=== PATIENT | male | born 1985 | race Caucasian/White ===

== ENCOUNTER 2018-12-23 19:08 | Inpatient (IN) | payer BC ==
[~2018-12-23] VITALS: Ht 177.8 cm; Wt 73.4 kg
[2018-12-23] MEDS ORDERED: SOD CHLORIDE 0.9% 1,000 ML IV STA ×2 (19:32→21:41)
[2018-12-23] MEDS ORDERED: LORAZEPAM 2 MG INJ IV STA (19:32)
[2018-12-23] MEDS ORDERED: LEVETIRACETAM 1000 MG (PMX) 100 ML IVPB STA (19:32)
[2018-12-23] MEDS ORDERED: ONDANSETRON 4 MG INJ IV STA (19:36)
[2018-12-23] MEDS ORDERED: PROCHLORPERAZINE 10 MG INJ IV ONE (20:30)
[2018-12-23] MEDS ORDERED: LORAZEPAM 2 MG INJ IV ONE (21:00)
--- NOTE | 2018-12-23 21:54 | ERD ---
ER Documentation Chief Complaint Chief Complaint bib ra 102 for seizure, witnessed, +postictal, no head trauma HPI This is a 33-year-old male with a known history of seizure disorders. It is unknown the medication that he takes as the patient was unable to provide any history due to his recent seizure. A friend accompany him to the hospital. She stated that she is a very good friend of the patient as is her daughter. She stated that her daughter was talking to the patient on the phone while he was at work. He stated he was feeling tired and dizzy and asked if she could come to pick him up. He felt as though he was going to have a seizure as he states this is his aura prior to seizing. When they were on the phone the patient started talking and she assumed the patient was having a seizure and phoned 911. When EMS got there the friend had arrived and the patient was having a witnessed tonic-clonic seizure. They were able to establish IV access. They stated the seizure had subsequently stopped without any medication but the patient appeared very agitated and confused. EMS stated there is no signs of trauma or drug paraphernalia. The patient's Accu-Chek was within normal limits. Medication history is not available. ROS All systems reviewed and are negative except as per history of present illness. Allergies Allergies: Coded Allergies: Unknown: Unable to obtain (Unverified , 12/23/18) PMhx/Soc History of Surgery: No Anesthesia Reaction: No Hx Neurological Disorder: Yes (SEIZURES) Hx Respiratory Disorders: No Hx Cardiac Disorders: No Hx Psychiatric Problems: No Hx Miscellaneous Medical Probl: No Hx Alcohol Use: No Hx Substance Use: No Hx Tobacco Use: No Smoking Status: Never smoker Physical Exam Vitals Vital Signs Date Temp Pulse Resp B/P (MAP) Pulse Ox O2 O2 Flow FiO2 Time Delivery Rate 12/23/18 98.5 104 19 135/87 100 Room Air 21:37 (103) 12/23/18 98.5 100 19 107/70 100 Room Air 20:40 (82) 12/23/18 98.5 99 19 162/94 100 Room Air 19:47 (116) 12/23/18 98.5 120 19 162/94 100 19:12 (116) Physical Exam Constitutional:Well-developed. Well-nourished. Patient had an episode of nonbloody nonbilious emesis covered in vomit. . Very agitated. Combative. HEENT:Normocephalic. Atraumatic with no nasal septal hematoma. No hemotympanum..Pupils were equal round reactive to light. Moist mucous membranes.No tonsillar exudates. Neck: No nuchal rigidity. No lymphadenopathy. No posterior cervical spine tenderness or step-offs. Respiratory: Not using accessory muscles of respiration.Lungs were clear to auscultation bilaterally. No rhonchi. No rales. No wheezing. Cardiovascular: Regular rate regular rhythm.No murmurs. No rubs were appreciated.S1, S2 normal. Distal pulses are palpable 2+ bilaterally. GI: Abdomen was soft. Nontender. Non Distended. No pulsatile abdominal masses or bruits. No rebound. No guarding. Bowel sounds were present and normal. Muscle skeletal: Full range of motion of both the upper and lower extremities bilaterally.Normal muscle tone.No assymetrical calf tenderness or swelling. Skin: No petechia, no purpura. No lesions on the palms or the soles of the feet. No maculopapular rash. NEURO: Patient was alert mumbling incomprehensible sounds. Patient appeared confused. Was attempting to get out of the gurney. Gait unobserved. Result Diagram: 12/23/18193112/23/181931 Results 24 hrs Laboratory Tests Test 12/23/18 19:32 12/23/18 20:08 12/23/18 21:20 White Blood Count 16.5 10^3/ul Red Blood Count 5.38 10^6/ul Hemoglobin 16.5 g/dl Hematocrit 51.5 % Mean Corpuscular Volume 95.7 fl Mean Corpuscular Hemoglobin 30.7 pg Mean Corpuscular 32.0 g/dl Hemoglobin Concent Red Cell Distribution Width 11.8 % Platelet Count 249 10^3/UL Mean Platelet Volume 10.6 fl Immature Granulocytes % 1.500 % Neutrophils % % Segmented Neutrophils 41 % % (Manual) Band Neutrophils % (Manual) 5 % Lymphocytes % % Lymphocytes % (Manual) 47 % Monocytes % % Monocytes % (Manual) 1 % Eosinophils % % Basophils % % Basophils % (Manual) 2 % Metamyelocytes % (manual) 2 % Myelocytes % (Manual) 1 % Promyelocytes % (Manual) 1 % Nucleated Red Blood Cells % 1 % Immature Granulocytes # 0.250 10^3/ul Neutrophils # 10^3/ul Neutrophils # (Manual) 6.9 10^3/ul Band Neutrophils # 0.8 10^3/ul Lymphocytes (Manual) 7.7 10^3/ul Lymphocytes # 10^3/ul Monocytes # 10^3/ul Monocytes # (Manual) 0.1 10^3/ul Eosinophils # 10^3/ul Basophils # 10^3/ul Basophils # (Manual) 0.3 10^3/ul Metamyelocytes # 0.3 10^3/ul Myelocytes # 0.1 10^3/ul Promyelocytes # 0.1 10^3/ul Nucleated Red Blood Cells # 10^3/ul Platelet Estimate NORMAL Giant Platelets 1 % Polychromasia 3+ Poikilocytosis 2+ Anisocytosis 2+ Microcytosis 2+ Prothrombin Time 14.0 Sec Prothrombin Time Ratio 1.1 INR International 1.07 Normalized Ratio Activated 23.0 Sec Partial Thromboplast Time Sodium Level 146 mmol/L Potassium Level 4.4 mmol/L Chloride Level 102 mmol/L Carbon Dioxide Level 6 mmol/L Anion Gap 38 Blood Urea Nitrogen 16 mg/dl Creatinine 1.70 mg/dl Est Glomerular Filtrat 46 mL/min Rate mL/min Glucose Level 146 mg/dl Calcium Level 10.6 mg/dl Total Bilirubin 0.3 mg/dl Direct Bilirubin 0.00 mg/dl Indirect Bilirubin 0.3 mg/dl Aspartate Amino 43 IU/L Transf (AST/SGOT) Alanine 12 IU/L Aminotransferase (ALT/SGPT) Alkaline Phosphatase 64 IU/L Troponin I < 0.012 ng/ml Total Protein 9.4 g/dl Albumin 5.8 g/dl Globulin 3.60 g/dl Albumin/Globulin Ratio 1.61 Ethyl Alcohol Level < 10.0 mg/dl Blood Gas Specimen Source Blood arterial Arterial Blood Date Drawn 12/23/2018 8:20:48 PM Arterial Blood pH 7.243 (Temp corrected) Arterial Blood pCO2 41.4 mmhg (Temp correct) Arterial Blood pO2 89.4 mmHG (Temp corrected) Arterial Blood HCO3 17.5 mmol/L Arterial Blood Base Excess -9.4 mmol/L Arterial Blood 94.6 mmHG Oxygen Saturation Saeid Test ACCEPTAB Arterial Blood Gas Right Radial Puncture Site Arterial 0.3 % Blood Carboxyhemoglobin Arterial Blood Methemoglobin 0.4 % Blood Gas A-a O2 Differential 10.8 mmHg Oxyhemoglobin Percent 93.9 % Blood Gas Temperature 37.0 C Blood Gas Actual 18 Respiration Rate Blood Gas Modality ROOM AIR FiO2 21.0 % Blood Gas Critical Value Guanaco ALDRIDGE MD Read Back Blood Gas Notified Whom Blood Gas Notified Time 12/23/2018 8:27:27 PM Urine Opiates Screen Negative Urine Barbiturates Negative Urine Amphetamines Screen Negative Urine Benzodiazepines Screen Negative Urine Cocaine Screen Negative Urine Cannabinoids Negative Current Medications Medications Dose Sig/Loren Start Time Status Last (Trade) Ordered Route PRN Stop Time Admin Dose Reason Admin Sodium 1,000 ml @ Q1H STAT 12/23/18 DC 12/23/18 Chloride 1,000 mls/hr IV 19:32 12/23/18 19:36 20:31 Lorazepam 2 mg ONCE STAT 12/23/18 DC 12/23/18 (Ativan) IV 19:32 12/23/18 19:46 19:34 100 ml @ ONCE STAT 12/23/18 DC 12/23/18 Levetiracetam 400 mls/hr IVPB 19:32 12/23/18 19:54 19:46 Ondansetron 4 mg ONCE STAT 12/23/18 DC HCl (Zofran IV 19:36 12/23/18 Inj) 19:37 10 mg ONCE ONCE 12/23/18 DC 12/23/18 Prochlorperaz IV 20:30 12/23/18 21:12 ine 20:31 (Compazine Inj) Lorazepam 1 mg ONCE ONCE 12/23/18 DC 12/23/18 (Ativan) IV 21:00 12/23/18 21:12 21:01 Sodium 1,000 ml @ Q1H STAT 12/23/18 12/23/18 Chloride 1,000 mls/hr IV 21:41 12/23/18 21:44 22:40 Ondansetron 4 mg ER BRIDGE 12/23/18 HCl (Zofran PRN IV 22:00 12/24/18 Inj) NAUSEA/VOMITI 21:59 NG 650 mg ER BRIDGE 12/23/18 Acetaminophen PRN PO 22:00 12/24/18 (Tylenol .MILD PAIN 21:59 Tab) 1-3 OR TEMP 100 ml @ Q12 IVPB 12/24/18 Levetiracetam 400 mls/hr 09:00 Lorazepam 2 mg Q2H PRN 12/23/18 (Ativan) IV SEIZURES 22:00 [facility] This is a 33-year-old male that presented to the emergency department after having a witnessed tonic seizure just prior to arrival. The patient was admitted placed on a manager urgent care continuous pulse oximetry and seizure precautions were obtained. The patient did have a witnessed tonic-clonic seizure while in the emergency department shortly after his arrival and immediately was given 2 mg of IV Ativan. The patient had also had an episode of nonbloody nonbilious emesis in the emergency department concern for aspiration pneumonia. Therefore obtained a chest radiograph there is no infiltrates or pneumothorax. Blood cultures were obtained. The patient was given antiemetics which include Zofran and Compazine. Ancillary laboratory work showed a severe lowering of the patient's CO2 with a bicarb of 6. The patient however had no evidence of diabetic ketoacidosis. Therefore at this time I obtained an arterial blood gas. The patient's pH was 7.243. PCO2 was 41.4 PO2 was 89.4 and bicarb was 17.5. The patient was on room air at this time and therefore this appeared to be more of a metabolic acidosis versus respiratory acidosis. The patient received IV fluids and was also loaded with 1 g of Keppra intravenously. Patient did have another witnessed tonoclonic seizure in the emergency department that lasted for roughly 1 minute and resolved after receiving another dose of intravenous Ativan. Due to the multiple seizures I did feel is necessary to obtain a CT scan of the patient's head which showed no intr acerebral hemorrhage mass-effect or midline shift. The patient had leukocytosis with a lymphocyte count of 16.5 however I felt this is secondary to an acute stress reaction due to the multiple seizure activity. The patient will be admitted to the hospitalist in serious condition for status epilepticus. I have repeated the patient's ancillary laboratory work to reevaluate the patient's bicarb. Urine drug screen is currently pending. 12 Lead EKG tracing ordered and reviewed by myself showed: Sinus tach 109 bpm and no arrhythmia. NM interval normal. QRS duration normal. No ST segment elevation No ST segment depression. No changes consistent with acute ischemia. Critical Care: Time: 85 minutes Treatments/Evaluations: Close monitoring and treatment of unstable vital signs, cardiorespiratory, and neurologic status, while maintaining tight balance of fluid, respiratory, and cardiac interventions. Time does not include performing any of the above billable procedures. Departure Diagnosis: Primary Impression: Status epilepticus Additional Impression: Metabolic acidosis Condition: Fair KANU ALDRIDGE MD Dec 23, 2018 21:53
[2018-12-23] MEDS ORDERED: SOD CHLORIDE 0.9% 1,000 ML IV SCH (21:59)
[2018-12-23] MEDS ORDERED: DOCUSATE SODIUM 100 MG CAP PO PRN (22:00)
[2018-12-23] MEDS ORDERED: BISACODYL (EC) 5 MG TAB PO PRN (22:00)
[2018-12-23] MEDS ORDERED: LORAZEPAM 2 MG INJ IV PRN (22:00)
[2018-12-23] MEDS ORDERED: ONDANSETRON 4 MG INJ IV PRN ×2 (22:00)
[2018-12-23] MEDS ORDERED: NACL 0.9% 3 ML SYG IV SCH (22:00)
[2018-12-23] MEDS ORDERED: ACETAMINOPHEN 325 MG TAB PO PRN ×2 (22:00)
[2018-12-23] MEDS ORDERED: HALOPERIDOL 5 MG INJ IV ONE (22:30)
[2018-12-24] VITALS (14 sets, daily range): BP systolic 109–137; BP diastolic 65–85; PULSE 60–102; RESP 18–20; Ht 177.8 cm; Wt 73.4 kg
--- NOTE | 2018-12-24 04:08 | HP ---
Date/Time of Note Date/Time of Note DATE: 12/24/18 TIME: 03:55 Assessment/Plan VTE Prophylaxis SCD applied (from Nsg): Yes Pharmacological prophylaxis: NA/contraindicated Pharm contraindication: low risk/ambulating Lines/Catheters IV Catheter Type (from Nrsg): Saline Lock Assessment/Plan Hospital Course This is a 33-year-old male being admitted to the telemetry floor for: #1 acute encephalopathy: Toxic metabolic versus seizure versus other. Patient currently combination of postictal and sedated secondary to receiving Haldol and Ativan for seizures as well as him being agitated. Will monitor mental status closely. CT scan did not show any acute abnormality so it was a limited study. #2 seizure disorder with breakthrough seizures: Unsure at the current time what medications if any the patient was currently on. It appears he was working with a neurologist to adjust his medication regimen. He was given Keppra 1000 mg IV in the ED I will continue this twice daily at the current time. PRN Ativan. Seizure precautions. Will obtain an MRI of the brain to further evaluate. Will consult neurology . Urine drug screen and ethanol levels are negative. Will check TSH. #4 seizure disorder: Patient apparently had failed previous therapy with doses of Keppra 750 mg twice daily, Trileptal, Depakote. Unsure whether these were all at the same time separate. We will need to try to get a better history from the patient once he is better. #5 Metabolic acidosis: Likely secondary to seizure activity. IV fluid hydration, will monitor. #6 Acute kidney injury: We did not have a previous baseline creatinine. Creatinine at the current time is 1.70, prerenal, likely secondary to hemodynamics, mild dehydration, will hydrate the patient. Will monitor renal function. #7. DVT and GI prophylaxis: SCDs, no GI prophylaxis indicated Further treatment strategy will be implemented as per the clinical course. Result Diagram: 12/23/18193112/23/182148 Results 24hrs Laboratory Tests Test 12/23/18 19:32 12/23/18 20:08 12/23/18 21:20 12/23/18 21:49 White Blood Count 16.5 H Red Blood Count 5.38 Hemoglobin 16.5 Hematocrit 51.5 Mean Corpuscular 95.7 Volume Mean Corpuscular 30.7 Hemoglobin Mean Corpuscular 32.0 Hemoglobin Concent Red Cell 11.8 Distribution Width Platelet Count 249 Mean Platelet 10.6 H Volume Immature 1.500 H Granulocytes % Neutrophils % Segmented 41 Neutrophils % (Manual) Band Neutrophils % 5 H (Manual) Lymphocytes % Lymphocytes % 47 (Manual) Monocytes % Monocytes % 1 (Manual) Eosinophils % Basophils % Basophils % 2 (Manual) Metamyelocytes % 2 H (manual) Myelocytes % 1 H (Manual) Promyelocytes % 1 H (Manual) Nucleated Red 1 H Blood Cells % Immature 0.250 H Granulocytes # Neutrophils # Neutrophils # 6.9 (Manual) Band Neutrophils # 0.8 H Lymphocytes 7.7 H (Manual) Lymphocytes # Monocytes # Monocytes # 0.1 L (Manual) Eosinophils # Basophils # Basophils # 0.3 H (Manual) Metamyelocytes # 0.3 H Myelocytes # 0.1 H Promyelocytes # 0.1 H Nucleated Red Blood Cells # Platelet Estimate NORMAL Giant Platelets 1 H Polychromasia 3+ Poikilocytosis 2+ Anisocytosis 2+ Microcytosis 2+ Prothrombin Time 14.0 Prothrombin Time 1.1 Ratio INR International 1.07 Normalized Ratio Activated 23.[address] Time Sodium Level 146 H 143 Potassium Level 4.4 3.7 Chloride Level 102 109 Carbon Dioxide 6 *L 25 # Level Anion Gap 38 H 9 # Blood Urea 16 20 Nitrogen Creatinine 1.70 H 1.27 H Est Glomerular 46 L > 60 Filtrat Rate mL/min Glucose Level 146 121 Calcium Level 10.6 H 9.4 Total Bilirubin 0.3 0.3 Direct Bilirubin 0.00 0.00 Indirect Bilirubin 0.3 0.3 Aspartate Amino 43 35 Transf (AST/SGOT) Alanine 12 L 25 Aminotransferase ( ALT/SGPT) Alkaline 64 47 Phosphatase Troponin I < 0.012 Total Protein 9.4 H 7.4 # Albumin 5.8 H 4.6 # Globulin 3.60 H 2.80 Albumin/Globulin 1.61 1.64 Ratio Ethyl Alcohol < 10.0 H Level Blood Gas Specimen Blood arterial Source Arterial Blood 12/23/2018 8:20:48 Date Drawn PM Arterial Blood pH 7.243 *L (Temp corrected) Arterial Blood 41.4 pCO2 (Temp correct) Arterial Blood pO2 89.4 (Temp corrected) Arterial Blood 17.5 L HCO3 Arterial Blood -9.4 L Base Excess Arterial Blood 94.6 L Oxygen Saturation Saeid Test ACCEPTAB Arterial Blood Gas Right Radial Puncture Site Arterial 0.3 Blood Carboxyhemog lobin Arterial Blood 0.4 Methemoglobin Blood Gas A-a O2 10.8 Differential Oxyhemoglobin 93.9 Percent Blood Gas 37.0 Temperature Blood Gas Actual 18 Respiration Rate Blood Gas Modality ROOM AIR FiO2 21.0 Blood Gas Critical Guanaco ALDRIDGE MD Value Read Back Blood Gas Notified Whom Blood Gas Notified 12/23/2018 8:27:27 Time PM Urine Opiates Negative Screen Urine Barbiturates Negative Urine Amphetamines Negative Screen Urine Negative Benzodiazepines Screen Urine Cocaine Negative Screen Urine Cannabinoids Negative Phenytoin < 3.0 L (Dilantin) Level Valproic Acid < 10 L (Depakene) Level Carbamazepine < 3.0 L (Tegretol) Level HPI/ROS Admit Date/Time Admit Date/Time Dec 23, 2018 at 21:54 Hx of Present Illness Chief complaint: Witnessed seizures Following history was obtained from the ED physician as well as from the RN and the family friends at the bedside as patient was unable to provide history given his postictal state. This is a 33-year-old male with a known history of seizure disorders. 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 While on the phone with a family friend noticed that the patient stopped speaking. She tried to call the patient back however there was no response. She went over to his office and saw him on the floor. She called 911 and the EMS arrived and while the EMS were there they also witnessed a tonic-clonic seizure. He was brought into the emergency room where patient was continued to be having seizure activity. He was loaded with Keppra and given Ativan. Patient also had to be redirected a few times as he was trying to get out of bed and he also was given Haldol. I was able to speak to the family friends at the bedside who did present a paper to me that showed that the patient was following up with a neurologist who had requested an authorization for the patient to received bryviact 50 mg p.o. twice daily as previous medications of Depakote 1 g twice daily, Trileptal 900 mg twice daily, Keppra 750 mg twice daily had not been working. At the current time it is unclear what medications the patient was currently on as he is not able to provide a history. Allergies: None Medications: Unknown ROS Subjective hx not possible: other (Postictal from seizures, as well as sedated from agitation) PMH/Family/Social Past Medical History Seizure disorder Medications Current Medications Ondansetron HCl (Zofran Inj) 4 mg ER BRIDGE PRN IV NAUSEA/VOMITING; Start 12/23/18 at 22:00; Stop 12/24/18 at 21:59 Acetaminophen (Tylenol Tab) 650 mg ER BRIDGE PRN PO .MILD PAIN 1-3 OR TEMP; Start 12/23/18 at 22:00; Stop 12/24/18 at 21:59 Levetiracetam 100 ml @ 400 mls/hr Q12 IVPB ; Start 12/24/18 at 09:00 Lorazepam (Ativan) 2 mg Q2H PRN IV SEIZURES; Start 12/23/18 at 22:00 Sodium Chloride 1,000 ml @ 70 mls/hr [id number] IV ; Start 12/23/18 at 21:59; Stop 12/24/18 at 12:16 IV Flush (NS 3 ml) 3 ml PER PROTOCOL IV ; Start 12/23/18 at 22:00 Ondansetron HCl (Zofran Inj) 4 mg Q6H PRN IV NAUSEA/VOMITING; Start 12/23/18 at 22:00 Acetaminophen (Tylenol Tab) 650 mg Q6H PRN PO .PAIN 1-3 OR TEMP; Start 12/23/18 at 22:00 Docusate Sodium (Colace) 100 mg Q12H PRN PO .CONSTIPATION; Start 12/23/18 at 22:00 Bisacodyl (Dulcolax) 5 mg DAILY PRN PO .CONSTIPATION; Start 12/23/18 at 22:00 Coded Allergies: Unknown: Unable to obtain (Unverified , 12/23/18) Past Surgical History Unable to obtain given patient's clinical condition Social History Unable to obtain given patient's clinical condition Smoking Status: Unknown if ever smoked Exam/Review of Systems Vital Signs Vitals Vital Signs Date Temp Pulse Resp B/P (MAP) Pulse Ox O2 O2 Flow FiO2 Time Delivery Rate 12/24/18 97.4 93 18 126/66 96 00:51 (86) 12/24/18 Room Air 00:29 Exam Exam General: Patient is currently lying in bed sedated and postictal HEENT: Atraumatic, normocephalic. The pupils are equal, round and reactive. Extraocular motor are intact, oral trauma secondary to tongue biting from seizure Neck: Supple with full range of motion. No rigidity or meningismus Chest: Nontender Lungs: Clear to auscultation bilaterally no crackles rales or wheezing Heart: Normal S1-S2, Regular rhythm and rate. No murmur, S3, or S4 Abdomen: Soft , nontender, nondistended , bowel sounds are present. No guarding no rebound tenderness , No masses or organomegaly. No costovertebral temporal angle mass Extremities: Normal to inspection, no edema no cyanosis Neurologic: Currently sedated/postictal Additional Comments PROCEDURE: CT Brain without contrast. CLINICAL INDICATION: 33-year-old male. Combative. Seizure. TECHNIQUE: A CT of the brain was performed on a multi-slice CT scanner utilizing axial imaging from the skull base through the vertex without IV contrast. Multiplanar reformatted images were made. Images were reviewed on a PACS workstation. One or more the following dose reduction techniques were ut ilized: Automated exposure control, adjustment of mA/ or kV according to patient's size, or use of iterative reconstruction technique. DICOM images are available for review. The CTDIvol is 38.76 mGy and the DLP is 893.65 mGycm. COMPARISON: None FINDINGS: Motion degraded images. No gross mass effect or midline shift. Normal ventricles for age. No acute intra-axial or extra-axial hemorrhage. No subdural collection. Nicole - white matter differentiation is maintained. Visualized paranasal sinuses are clear. Mastoid air cells are clear. IMPRESSION: 1. Limited evaluation due to motion artifact. No gross abnormality demonstrated. Repeat CT brain or MR brain recommended as the patient receives appropriate sedation. RPTAT: [facility] Physician Jesús Date Time Electronically viewed and signed by Physician Jesús on 12/23/2018 21:16 RS/ CC: KANU ALDRIDGE MD [id number] PROCEDURE: CT Brain without contrast. CLINICAL INDICATION: 33-year-old male. Combative. Seizure. TECHNIQUE: A CT of the brain was performed on a multi-slice CT scanner utilizing axial imaging from the skull base through the vertex without IV contrast. Multiplanar reformatted images were made. Images were reviewed on a PACS workstation. One or more the following dose reduction techniques were utilized: Automated exposure control, adjustment of mA/ or kV according to patient's size, or use of iterative reconstruction technique. DICOM images are available for review. The CTDIvol is 38.76 mGy and the DLP is 893.65 mGycm. COMPARISON: None FINDINGS: Motion degraded images. No gross mass effect or midline shift. Normal ventricles for age. No acute intra-axial or extra-axial hemorrhage. No subdural collection. Nicole - white matter differentiation is maintained. Visualized paranasal sinuses are clear. Mastoid air cells are clear. IMPRESSION: 1. Limited evaluation due to motion artifact. No gross abnormality demonstrated. Repeat CT brain or MR brain recommended as the patient receives appropriate sedation. RPTAT: [facility] Physician Jesús Date Time Electronically viewed and signed by Physician Jesús on 12/23/2018 21:16 RS/ CC: KANU ALDRIDGE MD [id number] ROXANNA MCKEON Dec 24, 2018 04:06
--- NOTE | 2018-12-24 07:51 | CONS ---
Assessment/Plan Assessment/Plan Hospital Course 33 yo M with Hx of epilepsy who presents for evaluation of breakthrough seizures... for which neurology is consulted. CTH is without acute intracranial pathology. CXR was unremarkable Depakote level is subtherapeutic. P: Clarify AED regimen and medication compliance when able Start Depakote for now, pending the above Ativan IV PRN seizure > 5 min or for cluster Add Phos level Other medical management per primary Will follow clinically Consultation Date/Type/Reason Admit Date/Time Dec 23, 2018 at 21:54 Type of Consult Neurology Reason for Consultation seizure Requesting Provider: ROXANNA MCKEON Date/Time of Note DATE: 12/24/18 TIME: 07:50 Hx of Present Illness The pt is currently unable to contribute a meaningful hx. He was able to tell me that he takes depakote twice a day before going back to sleep. It is elsewhere noted: This is a 33-year-old male with a known history of seizure disorders. 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 While on the phone with a family friend noticed that the patient stopped speaking. She tried to call the patient back however there was no response. She went over to his office and saw him on the floor. She called 911 and the EMS arrived and while the EMS were there they also witnessed a tonic-clonic seizure. He was brought into the emergency room where patient was continued to be having seizure activity. He was loaded with Keppra and given Ativan. Patient also had to be redirected a few times as he was trying to get out of bed and he also was given Haldol. I was able to speak to the family friends at the bedside who did present a paper to me that showed that the patient was following up with a neurologist who had requested an authorization for the patient to received bryviact 50 mg p.o. twice daily as previous medications of Depakote 1 g twice daily, Trileptal 900 mg twice daily, Keppra 750 mg twice daily had not been working. At the current time it is unclear what medications the patient was currently on as he is not able to provide a history. limited d/t ams Exam/Review of Systems Exam Vitals Vital Signs Date Temp Pulse Resp B/P (MAP) Pulse Ox O2 O2 Flow FiO2 Time Delivery Rate 12/24/18 97.7 80 18 137/80 98 07:16 (99) 12/24/18 Room Air 00:29 Intake and Output 12/23/18 12/23/18 12/24/18 1515:00 23:00 07:00 IntakeIntake Total 600 ml BalanceBalance 600 ml Exam PE: Gen Appearance: No Apparent Distress HEENT: Normocephalic Cardiovascular: Regular rate Abdomen: Soft Extremities: Dry NE: The patient was obtunded and sparsely verbal. Opens eyes briefly. Unable to follow commands. Cranial nerve examination was limited by mental status. Pupils were equal and reactive to light. There was no afferent pupillary defect. Funduscopic examination was limited. Face was grossly symmetric, w/ present corneal and c ough reflexes. Tone was normal. Muscle bulk was normal. I did not see fasciculations. The patient withdrew his extremities to noxious stimulation x 4. Coordination and gait testing was limited by mental status. Arm and leg reflexes were within normal limits and symmetric. James's sign was absent. Plantar responses were flexor. Results Result Diagram: 12/24/18 0511 12/24/18 0511 Results 24hrs Laboratory Tests Test 12/23/18 19:32 12/23/18 20:08 12/23/18 21:20 12/23/18 21:49 White Blood Count 16.5 H Red Blood Count 5.38 Hemoglobin 16.5 Hematocrit 51.5 Mean Corpuscular 95.7 Volume Mean Corpuscular 30.7 Hemoglobin Mean Corpuscular 32.0 Hemoglobin Concent Red Cell 11.8 Distribution Width Platelet Count 249 Mean Platelet 10.6 H Volume Immature 1.500 H Granulocytes % Neutrophils % Segmented 41 Neutrophils % (Manual) Band Neutrophils % 5 H (Manual) Lymphocytes % Lymphocytes % 47 (Manual) Monocytes % Monocytes % 1 (Manual) Eosinophils % Basophils % Basophils % 2 (Manual) Metamyelocytes % 2 H (manual) Myelocytes % 1 H (Manual) Promyelocytes % 1 H (Manual) Nucleated Red 1 H Blood Cells % Immature 0.250 H Granulocytes # Neutrophils # Neutrophils # 6.9 (Manual) Band Neutrophils # 0.8 H Lymphocytes 7.7 H (Manual) Lymphocytes # Monocytes # Monocytes # 0.1 L (Manual) Eosinophils # Basophils # Basophils # 0.3 H (Manual) Metamyelocytes # 0.3 H Myelocytes # 0.1 H Promyelocytes # 0.1 H Nucleated Red Blood Cells # Platelet Estimate NORMAL Giant Platelets 1 H Polychromasia 3+ Poikilocytosis 2+ Anisocytosis 2+ Microcytosis 2+ Prothrombin Time 14.0 Prothrombin Time 1.1 Ratio INR International 1.07 Normalized Ratio Activated 23.[address] Time Sodium Level 146 H 143 Potassium Level 4.4 3.7 Chloride Level 102 109 Carbon Dioxide 6 *L 25 # Level Anion Gap 38 H 9 # Blood Urea 16 20 Nitrogen Creatinine 1.70 H 1.27 H Est Glomerular 46 L > 60 Filtrat Rate mL/min Glucose Level 146 121 Calcium Level 10.6 H 9.4 Total Bilirubin 0.3 0.3 Direct Bilirubin 0.00 0.00 Indirect Bilirubin 0.3 0.3 Aspartate Amino 43 35 Transf (AST/SGOT) Alanine 12 L 25 Aminotransferase ( ALT/SGPT) Alkaline 64 47 Phosphatase Troponin I < 0.012 Total Protein 9.4 H 7.4 # Albumin 5.8 H 4.6 # Globulin 3.60 H 2.80 Albumin/Globulin 1.61 1.64 Ratio Ethyl Alcohol < 10.0 H Level Blood Gas Specimen Blood arterial Source Arterial Blood 12/23/2018 8:20:48 Date Drawn PM Arterial Blood pH 7.243 *L (Temp corrected) Arterial Blood 41.4 pCO2 (Temp correct) Arterial Blood pO2 89.4 (Temp corrected) Arterial Blood 17.5 L HCO3 Arterial Blood -9.4 L Base Excess Arterial Blood 94.6 L Oxygen Saturation Saeid Test ACCEPTAB Arterial Blood Gas Right Radial Puncture Site Arterial 0.3 Blood Carboxyhemog lobin Arterial Blood 0.4 Methemoglobin Blood Gas A-a O2 10.8 Differential Oxyhemoglobin 93.9 Percent Blood Gas 37.0 Temperature Blood Gas Actual 18 Respiration Rate Blood Gas Modality ROOM AIR FiO2 21.0 Blood Gas Critical Guanaco ALDRIDGE MD Value Read Back Blood Gas Notified Whom Blood Gas Notified 12/23/2018 8:27:27 Time PM Urine Opiates Negative Screen Urine Barbiturates Negative Urine Amphetamines Negative Screen Urine Negative Benzodiazepines Screen Urine Cocaine Negative Screen Urine Cannabinoids Negative Phenytoin < 3.0 L (Dilantin) Level Valproic Acid < 10 L (Depakene) Level Carbamazepine < 3.0 L (Tegretol) Level Test 12/24/18 05:11 White Blood Count 11.7 #H Red Blood Count 4.40 L Hemoglobin 13.5 L Hematocrit 38.5 #L Mean Corpuscular 87.5 Volume Mean Corpuscular 30.7 Hemoglobin Mean Corpuscular 35.1 Hemoglobin Concent Red Cell 12.0 Distribution Width Platelet Count 140 # Mean Platelet 9.9 Volume Immature 0.300 Granulocytes % Neutrophils % 83.4 H Lymphocytes % 7.5 L Monocytes % 8.5 Eosinophils % 0.0 Basophils % 0.3 Nucleated Red 0.0 Blood Cells % Immature 0.040 H Granulocytes # Neutrophils # 9.8 H Lymphocytes # 0.9 Monocytes # 1.0 H Eosinophils # 0.0 Basophils # 0.0 Nucleated Red 0.0 Blood Cells # Sodium Level 142 Potassium Level 4.3 Chloride Level 108 Carbon Dioxide 25 Level Anion Gap 9 Blood Urea 29 H Nitrogen Creatinine 2.03 H Est Glomerular 38 L Filtrat Rate mL/min Glucose Level 94 Calcium Level 9.1 Magnesium Level 3.0 H Total Bilirubin 0.5 Direct Bilirubin 0.00 Indirect Bilirubin 0.5 Aspartate Amino 45 Transf (AST/SGOT) Alanine 21 Aminotransferase ( ALT/SGPT) Alkaline 35 L Phosphatase Total Protein 6.7 Albumin 4.2 Globulin 2.50 Albumin/Globulin 1.68 Ratio Triglycerides 53 Level Cholesterol Level 176 LDL Cholesterol, 118 Calculated HDL Cholesterol 47 Cholesterol/HDL 3.7 Ratio Thyroid 0.554 Stimulating Hormone (TSH) Medications Medication Current Medications Ondansetron HCl (Zofran Inj) 4 mg ER BRIDGE PRN IV NAUSEA/VOMITING; Start 12/23/18 at 22:00; Stop 12/24/18 at 21:59 Acetaminophen (Tylenol Tab) 650 mg ER BRIDGE PRN PO .MILD PAIN 1-3 OR TEMP; Start 12/23/18 at 22:00; Stop 12/24/18 at 21:59 Levetiracetam 100 ml @ 400 mls/hr Q12 IVPB ; Start 12/24/18 at 09:00 Lorazepam (Ativan) 2 mg Q2H PRN IV SEIZURES; Start 12/23/18 at 22:00 Sodium Chloride 1,000 ml @ 70 mls/hr [id number] IV Last administered on 12/24/18at 05:49; Admin Dose 70 MLS/HR; Start 12/23/18 at 21:59; Stop 12/24/18 at 12:16 IV Flush (NS 3 ml) 3 ml PER PROTOCOL IV ; Start 12/23/18 at 22:00 Ondansetron HCl (Zofran Inj) 4 mg Q6H PRN IV NAUSEA/VOMITING; Start 12/23/18 at 22:00 Acetaminophen (Tylenol Tab) 650 mg Q6H PRN PO .PAIN 1-3 OR TEMP; Start 12/23/18 at 22:00 Docusate Sodium (Colace) 100 mg Q12H PRN PO .CONSTIPATION; Start 12/23/18 at 22:00 Bisacodyl (Dulcolax) 5 mg DAILY PRN PO .CONSTIPATION; Start 12/23/18 at 22:00 Past Medical History reviewed Medications Current Medications Ondansetron HCl (Zofran Inj) 4 mg ER BRIDGE PRN IV NAUSEA/VOMITING; Start 12/23/18 at 22:00; Stop 12/24/18 at 21:59 Acetaminophen (Tylenol Tab) 650 mg ER BRIDGE PRN PO .MILD PAIN 1-3 OR TEMP; Start 12/23/18 at 22:00; Stop 12/24/18 at 21:59 Levetiracetam 100 ml @ 400 mls/hr Q12 IVPB ; Start 12/24/18 at 09:00 Lorazepam (Ativan) 2 mg Q2H PRN IV SEIZURES; Start 12/23/18 at 22:00 Sodium Chloride 1,000 ml @ 70 mls/hr [id number] IV Last administered on 12/24/18at 05:49; Admin Dose 70 MLS/HR; Start 12/23/18 at 21:59; Stop 12/24/18 at 12:16 IV Flush (NS 3 ml) 3 ml PER PROTOCOL IV ; Start 12/23/18 at 22:00 Ondansetron HCl (Zofran Inj) 4 mg Q6H PRN IV NAUSEA/VOMITING; Start 12/23/18 at 22:00 Acetaminophen (Tylenol Tab) 650 mg Q6H PRN PO .PAIN 1-3 OR TEMP; Start 12/23/18 at 22:00 Docusate Sodium (Colace) 100 mg Q12H PRN PO .CONSTIPATION; Start 12/23/18 at 22:00 Bisacodyl (Dulcolax) 5 mg DAILY PRN PO .CONSTIPATION; Start 12/23/18 at 22:00 Allergies: Coded Allergies: Unknown: Unable to obtain (Unverified , 12/23/18) Past Surgical History reviewed Social History reviewed Smoking Status: Unknown if ever smoked ASUNICON KINGSLEY Dec 24, 2018 07:51 PADMINI STODDARD NP Dec 24, 2018 13:11
[2018-12-24] MEDS ORDERED: LEVETIRACETAM 1000 MG (PMX) 100 ML IVPB SCH (09:00)
--- NOTE | 2018-12-24 10:34 | PN ---
Date/Time of Note Date/Time of Note DATE: 12/24/18 TIME: 10:33 Assessment/Plan VTE Prophylaxis Risk score (from [facility])>0 risk: 2 SCD applied (from [facility]): Yes SCD contraindicated: low risk/ambulating Pharmacological prophylaxis: NA/contraindicated Pharm contraindication: low risk/ambulating Lines/Catheters IV Catheter Type (from [facility] Saline Lock Assessment/Plan Result Diagram: 12/24/18 0511 12/24/18 0511 Results 24hrs Laboratory Tests Test 12/23/18 19:32 12/23/18 20:08 12/23/18 21:20 12/23/18 21:49 White Blood Count 16.5 H Red Blood Count 5.38 Hemoglobin 16.5 Hematocrit 51.5 Mean Corpuscular 95.7 Volume Mean Corpuscular 30.7 Hemoglobin Mean Corpuscular 32.0 Hemoglobin Concent Red Cell 11.8 Distribution Width Platelet Count 249 Mean Platelet 10.6 H Volume Immature 1.500 H Granulocytes % Neutrophils % Segmented 41 Neutrophils % (Manual) Band Neutrophils % 5 H (Manual) Lymphocytes % Lymphocytes % 47 (Manual) Monocytes % Monocytes % 1 (Manual) Eosinophils % Basophils % Basophils % 2 (Manual) Metamyelocytes % 2 H (manual) Myelocytes % 1 H (Manual) Promyelocytes % 1 H (Manual) Nucleated Red 1 H Blood Cells % Immature 0.250 H Granulocytes # Neutrophils # Neutrophils # 6.9 (Manual) Band Neutrophils # 0.8 H Lymphocytes 7.7 H (Manual) Lymphocytes # Monocytes # Monocytes # 0.1 L (Manual) Eosinophils # Basophils # Basophils # 0.3 H (Manual) Metamyelocytes # 0.3 H Myelocytes # 0.1 H Promyelocytes # 0.1 H Nucleated Red Blood Cells # Platelet Estimate NORMAL Giant Platelets 1 H Polychromasia 3+ Poikilocytosis 2+ Anisocytosis 2+ Microcytosis 2+ Prothrombin Time 14.0 Prothrombin Time 1.1 Ratio INR International 1.07 Normalized Ratio Activated 23.[address] Time Sodium Level 146 H 143 Potassium Level 4.4 3.7 Chloride Level 102 109 Carbon Dioxide 6 *L 25 # Level Anion Gap 38 H 9 # Blood Urea 16 20 Nitrogen Creatinine 1.70 H 1.27 H Est Glomerular 46 L > 60 Filtrat Rate mL/min Glucose Level 146 121 Calcium Level 10.6 H 9.4 Total Bilirubin 0.3 0.3 Direct Bilirubin 0.00 0.00 Indirect Bilirubin 0.3 0.3 Aspartate Amino 43 35 Transf (AST/SGOT) Alanine 12 L 25 Aminotransferase ( ALT/SGPT) Alkaline 64 47 Phosphatase Troponin I < 0.012 Total Protein 9.4 H 7.4 # Albumin 5.8 H 4.6 # Globulin 3.60 H 2.80 Albumin/Globulin 1.61 1.64 Ratio Ethyl Alcohol < 10.0 H Level Blood Gas Specimen Blood arterial Source Arterial Blood 12/23/2018 8:20:48 Date Drawn PM Arterial Blood pH 7.243 *L (Temp corrected) Arterial Blood 41.4 pCO2 (Temp correct) Arterial Blood pO2 89.4 (Temp corrected) Arterial Blood 17.5 L HCO3 Arterial Blood -9.4 L Base Excess Arterial Blood 94.6 L Oxygen Saturation Saeid Test ACCEPTAB Arterial Blood Gas Right Radial Puncture Site Arterial 0.3 Blood Carboxyhemog lobin Arterial Blood 0.4 Methemoglobin Blood Gas A-a O2 10.8 Differential Oxyhemoglobin 93.9 Percent Blood Gas 37.0 Temperature Blood Gas Actual 18 Respiration Rate Blood Gas Modality ROOM AIR FiO2 21.0 Blood Gas Critical Guanaco ALDRIDGE MD Value Read Back Blood Gas Notified Whom Blood Gas Notified 12/23/2018 8:27:27 Time PM Urine Opiates Negative Screen Urine Barbiturates Negative Urine Amphetamines Negative Screen Urine Negative Benzodiazepines Screen Urine Cocaine Negative Screen Urine Cannabinoids Negative Phenytoin < 3.0 L (Dilantin) Level Valproic Acid < 10 L (Depakene) Level Carbamazepine < 3.0 L (Tegretol) Level Test 12/24/18 05:11 White Blood Count 11.7 #H Red Blood Count 4.40 L Hemoglobin 13.5 L Hematocrit 38.5 #L Mean Corpuscular 87.5 Volume Mean Corpuscular 30.7 Hemoglobin Mean Corpuscular 35.1 Hemoglobin Concent Red Cell 12.0 Distribution Width Platelet Count 140 # Mean Platelet 9.9 Volume Immature 0.300 Granulocytes % Neutrophils % 83.4 H Lymphocytes % 7.5 L Monocytes % 8.5 Eosinophils % 0.0 Basophils % 0.3 Nucleated Red 0.0 Blood Cells % Immature 0.040 H Granulocytes # Neutrophils # 9.8 H Lymphocytes # 0.9 Monocytes # 1.0 H Eosinophils # 0.0 Basophils # 0.0 Nucleated Red 0.0 Blood Cells # Sodium Level 142 Potassium Level 4.3 Chloride Level 108 Carbon Dioxide 25 Level Anion Gap 9 Blood Urea 29 H Nitrogen Creatinine 2.03 H Est Glomerular 38 L Filtrat Rate mL/min Glucose Level 94 Calcium Level 9.1 Magnesium Level 3.0 H Total Bilirubin 0.5 Direct Bilirubin 0.00 Indirect Bilirubin 0.5 Aspartate Amino 45 Transf (AST/SGOT) Alanine 21 Aminotransferase ( ALT/SGPT) Alkaline 35 L Phosphatase Total Protein 6.7 Albumin 4.2 Globulin 2.50 Albumin/Globulin 1.68 Ratio Triglycerides 53 Level Cholesterol Level 176 LDL Cholesterol, 118 Calculated HDL Cholesterol 47 Cholesterol/HDL 3.7 Ratio Thyroid 0.554 Stimulating Hormone (TSH) Exam/Review of Systems Exam Vitals Vital Signs Date Temp Pulse Resp B/P (MAP) Pulse Ox O2 O2 Flow FiO2 Time Delivery Rate 12/24/18 78 08:00 12/24/18 97.7 18 137/80 98 07:16 (99) 12/24/18 Room Air 00:29 Intake and Output 12/23/18 12/23/18 12/24/18 1515:00 23:00 07:00 IntakeIntake Total 600 ml BalanceBalance 600 ml Results Results 24hrs Laboratory Tests Test 12/23/18 19:32 12/23/18 20:08 12/23/18 21:20 12/23/18 21:49 White Blood Count 16.5 H Red Blood Count 5.38 Hemoglobin 16.5 Hematocrit 51.5 Mean Corpuscular 95.7 Volume Mean Corpuscular 30.7 Hemoglobin Mean Corpuscular 32.0 Hemoglobin Concent Red Cell 11.8 Distribution Width Platelet Count 249 Mean Platelet 10.6 H Volume Immature 1.500 H Granulocytes % Neutrophils % Segmented 41 Neutrophils % (Manual) Band Neutrophils % 5 H (Manual) Lymphocytes % Lymphocytes % 47 (Manual) Monocytes % Monocytes % 1 (Manual) Eosinophils % Basophils % Basophils % 2 (Manual) Metamyelocytes % 2 H (manual) Myelocytes % 1 H (Manual) Promyelocytes % 1 H (Manual) Nucleated Red 1 H Blood Cells % Immature 0.250 H Granulocytes # Neutrophils # Neutrophils # 6.9 (Manual) Band Neutrophils # 0.8 H Lymphocytes 7.7 H (Manual) Lymphocytes # Monocytes # Monocytes # 0.1 L (Manual) Eosinophils # Basophils # Basophils # 0.3 H (Manual) Metamyelocytes # 0.3 H Myelocytes # 0.1 H Promyelocytes # 0.1 H Nucleated Red Blood Cells # Platelet Estimate NORMAL Giant Platelets 1 H Polychromasia 3+ Poikilocytosis 2+ Anisocytosis 2+ Microcytosis 2+ Prothrombin Time 14.0 Prothrombin Time 1.1 Ratio INR International 1.07 Normalized Ratio Activated 23.[address] Time Sodium Level 146 H 143 Potassium Level 4.4 3.7 Chloride Level 102 109 Carbon Dioxide 6 *L 25 # Level Anion Gap 38 H 9 # Blood Urea 16 20 Nitrogen Creatinine 1.70 H 1.27 H Est Glomerular 46 L > 60 Filtrat Rate mL/min Glucose Level 146 121 Calcium Level 10.6 H 9.4 Total Bilirubin 0.3 0.3 Direct Bilirubin 0.00 0.00 Indirect Bilirubin 0.3 0.3 Aspartate Amino 43 35 Transf (AST/SGOT) Alanine 12 L 25 Aminotransferase ( ALT/SGPT) Alkaline 64 47 Phosphatase Troponin I < 0.012 Total Protein 9.4 H 7.4 # Albumin 5.8 H 4.6 # Globulin 3.60 H 2.80 Albumin/Globulin 1.61 1.64 Ratio Ethyl Alcohol < 10.0 H Level Blood Gas Specimen Blood arterial Source Arterial Blood 12/23/2018 8:20:48 Date Drawn PM Arterial Blood pH 7.243 *L (Temp corrected) Arterial Blood 41.4 pCO2 (Temp correct) Arterial Blood pO2 89.4 (Temp corrected) Arterial Blood 17.5 L HCO3 Arterial Blood -9.4 L Base Excess Arterial Blood 94.6 L Oxygen Saturation Saeid Test ACCEPTAB Arterial Blood Gas Right Radial Puncture Site Arterial 0.3 Blood Carboxyhemog lobin Arterial Blood 0.4 Methemoglobin Blood Gas A-a O2 10.8 Differential Oxyhemoglobin 93.9 Percent Blood Gas 37.0 Temperature Blood Gas Actual 18 Respiration Rate Blood Gas Modality ROOM AIR FiO2 21.0 Blood Gas Critical Guanaco ALDRIDGE MD Value Read Back Blood Gas Notified Whom Blood Gas Notified 12/23/2018 8:27:27 Time PM Urine Opiates Negative Screen Urine Barbiturates Negative Urine Amphetamines Negative Screen Urine Negative Benzodiazepines Screen Urine Cocaine Negative Screen Urine Cannabinoids Negative Phenytoin < 3.0 L (Dilantin) Level Valproic Acid < 10 L (Depakene) Level Carbamazepine < 3.0 L (Tegretol) Level Test 12/24/18 05:11 White Blood Count 11.7 #H Red Blood Count 4.40 L Hemoglobin 13.5 L Hematocrit 38.5 #L Mean Corpuscular 87.5 Volume Mean Corpuscular 30.7 Hemoglobin Mean Corpuscular 35.1 Hemoglobin Concent Red Cell 12.0 Distribution Width Platelet Count 140 # Mean Platelet 9.9 Volume Immature 0.300 Granulocytes % Neutrophils % 83.4 H Lymphocytes % 7.5 L Monocytes % 8.5 Eosinophils % 0.0 Basophils % 0.3 Nucleated Red 0.0 Blood Cells % Immature 0.040 H Granulocytes # Neutrophils # 9.8 H Lymphocytes # 0.9 Monocytes # 1.0 H Eosinophils # 0.0 Basophils # 0.0 Nucleated Red 0.0 Blood Cells # Sodium Level 142 Potassium Level 4.3 Chloride Level 108 Carbon Dioxide 25 Level Anion Gap 9 Blood Urea 29 H Nitrogen Creatinine 2.03 H Est Glomerular 38 L Filtrat Rate mL/min Glucose Level 94 Calcium Level 9.1 Magnesium Level 3.0 H Total Bilirubin 0.5 Direct Bilirubin 0.00 Indirect Bilirubin 0.5 Aspartate Amino 45 Transf (AST/SGOT) Alanine 21 Aminotransferase ( ALT/SGPT) Alkaline 35 L Phosphatase Total Protein 6.7 Albumin 4.2 Globulin 2.50 Albumin/Globulin 1.68 Ratio Triglycerides 53 Level Cholesterol Level 176 LDL Cholesterol, 118 Calculated HDL Cholesterol 47 Cholesterol/HDL 3.7 Ratio Thyroid 0.554 Stimulating Hormone (TSH) Medications Medication Current Medications Ondansetron HCl (Zofran Inj) 4 mg ER BRIDGE PRN IV NAUSEA/VOMITING; Start 12/23/18 at 22:00; Stop 12/24/18 at 21:59 Acetaminophen (Tylenol Tab) 650 mg ER BRIDGE PRN PO .MILD PAIN 1-3 OR TEMP; Start 12/23/18 at 22:00; Stop 12/24/18 at 21:59 Levetiracetam 100 ml @ 400 mls/hr Q12 IVPB Last administered on 12/24/18at 08:29; Admin Dose 400 MLS/HR; Start 12/24/18 at 09:00 Lorazepam (Ativan) 2 mg Q2H PRN IV SEIZURES; Start 12/23/18 at 22:00 Sodium Chloride 1,000 ml @ 70 mls/hr [id number] IV Last administered on 12/24/18at 05:49; Admin Dose 70 MLS/HR; Start 12/23/18 at 21:59; Stop 12/24/18 at 12:16 IV Flush (NS 3 ml) 3 ml PER PROTOCOL IV ; Start 12/23/18 at 22:00 Ondansetron HCl (Zofran Inj) 4 mg Q6H PRN IV NAUSEA/VOMITING; Start 12/23/18 at 22:00 Acetaminophen (Tylenol Tab) 650 mg Q6H PRN PO .PAIN 1-3 OR TEMP; Start 12/23/18 at 22:00 Docusate Sodium (Colace) 100 mg Q12H PRN PO .CONSTIPATION; Start 12/23/18 at 22:00 Bisacodyl (Dulcolax) 5 mg DAILY PRN PO .CONSTIPATION; Start 12/23/18 at 22:00 LEOBARDO SEPULVEDA Dec 24, 2018 10:34
--- NOTE | 2018-12-24 12:31 | PN ---
Date/Time of Note Date/Time of Note DATE: 12/24/18 TIME: 12:25 Assessment/Plan VTE Prophylaxis Risk score (from [facility])>0 risk: 2 SCD applied (from [facility]): Yes SCD contraindicated: low risk/ambulating Pharmacological prophylaxis: NA/contraindicated Pharm contraindication: low risk/ambulating Lines/Catheters IV Catheter Type (from [facility]): Saline Lock Assessment/Plan Hospital Course This is a 33-year-old male being admitted to the telemetry floor for: #1 acute encephalopathy: -Brain CT grossly normal, patient is likely postictal still, continue felipe toring #2 seizure disorder with breakthrough seizures: -Neurology consult has been obtained, await final recs, EEG -MRI brain #3 Metabolic acidosis: Likely secondary to seizure activity. IV fluid hydration, will monitor. #4 Acute kidney injury: worsening, will order renal USS and continue IVF Further treatment strategy will be implemented as per the clinical course. Result Diagram: 12/24/18 0511 12/24/18 0511 Results 24hrs Laboratory Tests Test 12/23/18 19:32 12/23/18 20:08 12/23/18 21:20 12/23/18 21:49 White Blood Count 16.5 H Red Blood Count 5.38 Hemoglobin 16.5 Hematocrit 51.5 Mean Corpuscular 95.7 Volume Mean Corpuscular 30.7 Hemoglobin Mean Corpuscular 32.0 Hemoglobin Concent Red Cell 11.8 Distribution Width Platelet Count 249 Mean Platelet 10.6 H Volume Immature 1.500 H Granulocytes % Neutrophils % Segmented 41 Neutrophils % (Manual) Band Neutrophils % 5 H (Manual) Lymphocytes % Lymphocytes % 47 (Manual) Monocytes % Monocytes % 1 (Manual) Eosinophils % Basophils % Basophils % 2 (Manual) Metamyelocytes % 2 H (manual) Myelocytes % 1 H (Manual) Promyelocytes % 1 H (Manual) Nucleated Red 1 H Blood Cells % Immature 0.250 H Granulocytes # Neutrophils # Neutrophils # 6.9 (Manual) Band Neutrophils # 0.8 H Lymphocytes 7.7 H (Manual) Lymphocytes # Monocytes # Monocytes # 0.1 L (Manual) Eosinophils # Basophils # Basophils # 0.3 H (Manual) Metamyelocytes # 0.3 H Myelocytes # 0.1 H Promyelocytes # 0.1 H Nucleated Red Blood Cells # Platelet Estimate NORMAL Giant Platelets 1 H Polychromasia 3+ Poikilocytosis 2+ Anisocytosis 2+ Microcytosis 2+ Prothrombin Time 14.0 Prothrombin Time 1.1 Ratio INR International 1.07 Normalized Ratio Activated 23.[address] Time Sodium Level 146 H 143 Potassium Level 4.4 3.7 Chloride Level 102 109 Carbon Dioxide 6 *L 25 # Level Anion Gap 38 H 9 # Blood Urea 16 20 Nitrogen Creatinine 1.70 H 1.27 H Est Glomerular 46 L > 60 Filtrat Rate mL/min Glucose Level 146 121 Calcium Level 10.6 H 9.4 Total Bilirubin 0.3 0.3 Direct Bilirubin 0.00 0.00 Indirect Bilirubin 0.3 0.3 Aspartate Amino 43 35 Transf (AST/SGOT) Alanine 12 L 25 Aminotransferase ( ALT/SGPT) Alkaline 64 47 Phosphatase Troponin I < 0.012 Total Protein 9.4 H 7.4 # Albumin 5.8 H 4.6 # Globulin 3.60 H 2.80 Albumin/Globulin 1.61 1.64 Ratio Ethyl Alcohol < 10.0 H Level Blood Gas Specimen Blood arterial Source Arterial Blood 12/23/2018 8:20:48 Date Drawn PM Arterial Blood pH 7.243 *L (Temp corrected) Arterial Blood 41.4 pCO2 (Temp correct) Arterial Blood pO2 89.4 (Temp corrected) Arterial Blood 17.5 L HCO3 Arterial Blood -9.4 L Base Excess Arterial Blood 94.6 L Oxygen Saturation Saeid Test ACCEPTAB Arterial Blood Gas Right Radial Puncture Site Arterial 0.3 Blood Carboxyhemog lobin Arterial Blood 0.4 Methemoglobin Blood Gas A-a O2 10.8 Differential Oxyhemoglobin 93.9 Percent Blood Gas 37.0 Temperature Blood Gas Actual 18 Respiration Rate Blood Gas Modality ROOM AIR FiO2 21.0 Blood Gas Critical Guanaco ALDRIDGE MD Value Read Back Blood Gas Notified Whom Blood Gas Notified 12/23/2018 8:27:27 Time PM Urine Opiates Negative Screen Urine Barbiturates Negative Urine Amphetamines Negative Screen Urine Negative Benzodiazepines Screen Urine Cocaine Negative Screen Urine Cannabinoids Negative Phenytoin < 3.0 L (Dilantin) Level Valproic Acid < 10 L (Depakene) Level Carbamazepine < 3.0 L (Tegretol) Level Test 12/24/18 05:11 White Blood Count 11.7 #H Red Blood Count 4.40 L Hemoglobin 13.5 L Hematocrit 38.5 #L Mean Corpuscular 87.5 Volume Mean Corpuscular 30.7 Hemoglobin Mean Corpuscular 35.1 Hemoglobin Concent Red Cell 12.0 Distribution Width Platelet Count 140 # Mean Platelet 9.9 Volume Immature 0.300 Granulocytes % Neutrophils % 83.4 H Lymphocytes % 7.5 L Monocytes % 8.5 Eosinophils % 0.0 Basophils % 0.3 Nucleated Red 0.0 Blood Cells % Immature 0.040 H Granulocytes # Neutrophils # 9.8 H Lymphocytes # 0.9 Monocytes # 1.0 H Eosinophils # 0.0 Basophils # 0.0 Nucleated Red 0.0 Blood Cells # Sodium Level 142 Potassium Level 4.3 Chloride Level 108 Carbon Dioxide 25 Level Anion Gap 9 Blood Urea 29 H Nitrogen Creatinine 2.03 H Est Glomerular 38 L Filtrat Rate mL/min Glucose Level 94 Calcium Level 9.1 Magnesium Level 3.0 H Total Bilirubin 0.5 Direct Bilirubin 0.00 Indirect Bilirubin 0.5 Aspartate Amino 45 Transf (AST/SGOT) Alanine 21 Aminotransferase ( ALT/SGPT) Alkaline 35 L Phosphatase Total Protein 6.7 Albumin 4.2 Globulin 2.50 Albumin/Globulin 1.68 Ratio Triglycerides 53 Level Cholesterol Level 176 LDL Cholesterol, 118 Calculated HDL Cholesterol 47 Cholesterol/HDL 3.7 Ratio Thyroid 0.554 Stimulating Hormone (TSH) Subjective 24 Hr Interval Summary Free Text/Dictation Sleeping very deeply, will barely arouse. Exam/Review of Systems Exam Vitals Vital Signs Date Temp Pulse Resp B/P (MAP) Pulse Ox O2 O2 Flow FiO2 Time Delivery Rate 12/24/18 98.1 67 18 109/65 97 10:57 (80) 12/24/18 Room Air 00:29 Intake and Output 12/23/18 12/23/18 12/24/18 1515:00 23:00 07:00 IntakeIntake Total 600 ml BalanceBalance 600 ml Constitutional: No alert, No distress Psych: other (Unable to assess) Head: normocephalic Eyes: PERRL Respiratory: clear to auscultation Cardiovascular: regular rate and rhythm Gastrointestinal: soft, non-tender, bowel sounds Extremities: No edema Neurological: other (Sleepy/postictal) Results Results 24hrs Laboratory Tests Test 12/23/18 19:32 12/23/18 20:08 12/23/18 21:20 12/23/18 21:49 White Blood Count 16.5 H Red Blood Count 5.38 Hemoglobin 16.5 Hematocrit 51.5 Mean Corpuscular 95.7 Volume Mean Corpuscular 30.7 Hemoglobin Mean Corpuscular 32.0 Hemoglobin Concent Red Cell 11.8 Distribution Width Platelet Count 249 Mean Platelet 10.6 H Volume Immature 1.500 H Granulocytes % Neutrophils % Segmented 41 Neutrophils % (Manual) Band Neutrophils % 5 H (Manual) Lymphocytes % Lymphocytes % 47 (Manual) Monocytes % Monocytes % 1 (Manual) Eosinophils % Basophils % Basophils % 2 (Manual) Metamyelocytes % 2 H (manual) Myelocytes % 1 H (Manual) Promyelocytes % 1 H (Manual) Nucleated Red 1 H Blood Cells % Immature 0.250 H Granulocytes # Neutrophils # Neutrophils # 6.9 (Manual) Band Neutrophils # 0.8 H Lymphocytes 7.7 H (Manual) Lymphocytes # Monocytes # Monocytes # 0.1 L (Manual) Eosinophils # Basophils # Basophils # 0.3 H (Manual) Metamyelocytes # 0.3 H Myelocytes # 0.1 H Promyelocytes # 0.1 H Nucleated Red Blood Cells # Platelet Estimate NORMAL Giant Platelets 1 H Polychromasia 3+ Poikilocytosis 2+ Anisocytosis 2+ Microcytosis 2+ Prothrombin Time 14.0 Prothrombin Time 1.1 Ratio INR International 1.07 Normalized Ratio Activated 23.[address] Time Sodium Level 146 H 143 Potassium Level 4.4 3.7 Chloride Level 102 109 Carbon Dioxide 6 *L 25 # Level Anion Gap 38 H 9 # Blood Urea 16 20 Nitrogen Creatinine 1.70 H 1.27 H Est Glomerular 46 L > 60 Filtrat Rate mL/min Glucose Level 146 121 Calcium Level 10.6 H 9.4 Total Bilirubin 0.3 0.3 Direct Bilirubin 0.00 0.00 Indirect Bilirubin 0.3 0.3 Aspartate Amino 43 35 Transf (AST/SGOT) Alanine 12 L 25 Aminotransferase ( ALT/SGPT) Alkaline 64 47 Phosphatase Troponin I < 0.012 Total Protein 9.4 H 7.4 # Albumin 5.8 H 4.6 # Globulin 3.60 H 2.80 Albumin/Globulin 1.61 1.64 Ratio Ethyl Alcohol < 10.0 H Level Blood Gas Specimen Blood arterial Source Arterial Blood 12/23/2018 8:20:48 Date Drawn PM Arterial Blood pH 7.243 *L (Temp corrected) Arterial Blood 41.4 pCO2 (Temp correct) Arterial Blood pO2 89.4 (Temp corrected) Arterial Blood 17.5 L HCO3 Arterial Blood -9.4 L Base Excess Arterial Blood 94.6 L Oxygen Saturation Saeid Test ACCEPTAB Arterial Blood Gas Right Radial Puncture Site Arterial 0.3 Blood Carboxyhemog lobin Arterial Blood 0.4 Methemoglobin Blood Gas A-a O2 10.8 Differential Oxyhemoglobin 93.9 Percent Blood Gas 37.0 Temperature Blood Gas Actual 18 Respiration Rate Blood Gas Modality ROOM AIR FiO2 21.0 Blood Gas Critical Guanaco ALDRIDGE MD Value Read Back Blood Gas Notified Whom Blood Gas Notified 12/23/2018 8:27:27 Time PM Urine Opiates Negative Screen Urine Barbiturates Negative Urine Amphetamines Negative Screen Urine Negative Benzodiazepines Screen Urine Cocaine Negative Screen Urine Cannabinoids Negative Phenytoin < 3.0 L (Dilantin) Level Valproic Acid < 10 L (Depakene) Level Carbamazepine < 3.0 L (Tegretol) Level Test 12/24/18 05:11 White Blood Count 11.7 #H Red Blood Count 4.40 L Hemoglobin 13.5 L Hematocrit 38.5 #L Mean Corpuscular 87.5 Volume Mean Corpuscular 30.7 Hemoglobin Mean Corpuscular 35.1 Hemoglobin Concent Red Cell 12.0 Distribution Width Platelet Count 140 # Mean Platelet 9.9 Volume Immature 0.300 Granulocytes % Neutrophils % 83.4 H Lymphocytes % 7.5 L Monocytes % 8.5 Eosinophils % 0.0 Basophils % 0.3 Nucleated Red 0.0 Blood Cells % Immature 0.040 H Granulocytes # Neutrophils # 9.8 H Lymphocytes # 0.9 Monocytes # 1.0 H Eosinophils # 0.0 Basophils # 0.0 Nucleated Red 0.0 Blood Cells # Sodium Level 142 Potassium Level 4.3 Chloride Level 108 Carbon Dioxide 25 Level Anion Gap 9 Blood Urea 29 H Nitrogen Creatinine 2.03 H Est Glomerular 38 L Filtrat Rate mL/min Glucose Level 94 Calcium Level 9.1 Magnesium Level 3.0 H Total Bilirubin 0.5 Direct Bilirubin 0.00 Indirect Bilirubin 0.5 Aspartate Amino 45 Transf (AST/SGOT) Alanine 21 Aminotransferase ( ALT/SGPT) Alkaline 35 L Phosphatase Total Protein 6.7 Albumin 4.2 Globulin 2.50 Albumin/Globulin 1.68 Ratio Triglycerides 53 Level Cholesterol Level 176 LDL Cholesterol, 118 Calculated HDL Cholesterol 47 Cholesterol/HDL 3.7 Ratio Thyroid 0.554 Stimulating Hormone (TSH) Medications Medication Current Medications Ondansetron HCl (Zofran Inj) 4 mg ER BRIDGE PRN IV NAUSEA/VOMITING; Start 12/23/18 at 22:00; Stop 12/24/18 at 21:59 Acetaminophen (Tylenol Tab) 650 mg ER BRIDGE PRN PO .MILD PAIN 1-3 OR TEMP; Start 12/23/18 at 22:00; Stop 12/24/18 at 21:59 Levetiracetam 100 ml @ 400 mls/hr Q12 IVPB Last administered on 12/24/18at 08:29; Admin Dose 400 MLS/HR; Start 12/24/18 at 09:00 Lorazepam (Ativan) 2 mg Q2H PRN IV SEIZURES; Start 12/23/18 at 22:00 IV Flush (NS 3 ml) 3 ml PER PROTOCOL IV ; Start 12/23/18 at 22:00 Ondansetron HCl (Zofran Inj) 4 mg Q6H PRN IV NAUSEA/VOMITING; Start 12/23/18 at 22:00 Acetaminophen (Tylenol Tab) 650 mg Q6H PRN PO .PAIN 1-3 OR TEMP; Start 12/23/18 at 22:00 Docusate Sodium (Colace) 100 mg Q12H PRN PO .CONSTIPATION; Start 12/23/18 at 22:00 Bisacodyl (Dulcolax) 5 mg DAILY PRN PO .CONSTIPATION; Start 12/23/18 at 22:00 LEOBARDO SEPULVEDA Dec 24, 2018 12:31
[2018-12-24] MEDS: FAMOTIDINE 20 MG INJ IV SCH ×2 (13:05→20:24)
[2018-12-24] MEDS: SOD CHLORIDE 0.9% 1,000 ML IV SCH ×2 (13:06→20:25)
--- NOTE | 2018-12-24 14:28 | CONS ---
Assessment/Plan Assessment/Plan Assessment/Plan (Daily) 1, acute kidney injury due to ATN 2. acute rhabdomyolysis due to seizures 3. acute encephalopathy from breakthrough seizures 4. H/o seizure disorder Plan: pt is postictal CK total to assess for rhabdomyolysis Renal US to assess for CKD, to rule out hydronephrosis CK total, Uric acid in AM labs IVF NS at 125 cc/hr Thanks for consultation, I will continue to follow up Consultation Date/Type/Reason Admit Date/Time Dec 23, 2018 at 21:54 Date of Consultation: Jan 02, 2019 Type of Consult NEPHROLOGY Reason for Consultation Acute kidney injury Requesting Provider: LEOBARDO SEPULVEDA Date/Time of Note DATE: 12/24/18 TIME: 14:28 Hx of Present Illness 33-year-old male with a known history of seizure disorder admitted with [facility] seizures, ON admission pt had a BUN/Cr 16/1.7- which bumped to 29/2.03- Renal has been consulted for acute renal failure. NO h/o NSAIDS use no Family h/o CKD Subjective hx not possible: other (pt is confused disoriented ) Past Medical History Medical History: other (seizure disorder) Medications Current Medications Lorazepam (Ativan) 2 mg Q2H PRN IV SEIZURES; Start 12/23/18 at 22:00 IV Flush (NS 3 ml) 3 ml PER PROTOCOL IV ; Start 12/23/18 at 22:00 Ondansetron HCl (Zofran Inj) 4 mg Q6H PRN IV NAUSEA/VOMITING; Start 12/23/18 at 22:00 Acetaminophen (Tylenol Tab) 650 mg Q6H PRN PO .PAIN 1-3 OR TEMP; Start 12/23/18 at 22:00 Bisacodyl (Dulcolax) 5 mg DAILY PRN PO .CONSTIPATION; Start 12/23/18 at 22:00 Sodium Chloride 1,000 ml @ 125 mls/hr Q8H IV Last administered on 12/24/18at 13:06; Admin Dose 125 MLS/HR; Start 12/24/18 at 12:30 Docusate Sodium (Colace) 100 mg Q12H PO ; Start 12/24/18 at 22:00 Ondansetron HCl (Zofran Inj) 4 mg Q6H PRN IV NAUSEA AND/OR VOMITING; Start 12/24/18 at 12:30 Famotidine (Pepcid Iv) 20 mg BID IV Last administered on 12/24/18at 13:05; Admin Dose 20 MG; Start 12/24/18 at 12:30 Acetaminophen (Tylenol Tab) 650 mg Q6H PRN PO MILD PAIN(1-3)OR ELEVATED TEMP; Start 12/24/18 at 12:30 Valproate Sodium 1500 mg/Sodium Chloride 115 ml @ 110 mls/hr ONCE ONCE IVPB ; Start 12/24/18 at 14:30; Stop 12/24/18 at 15:32 Valproate Sodium 1000 mg/Sodium Chloride 110 ml @ 110 mls/hr BID IVPB ; Start 12/24/18 at 21:00 Allergies: Coded Allergies: Unknown: Unable to obtain (Unverified , 12/23/18) Past Surgical History Past Surgical Hx: no surgical history Family History Significant Family History: no pertinent family hx Social History Alcohol Use: none Smoking Status: Unknown if ever smoked Drug Use: none Exam/Review of Systems Exam Vitals Vital Signs Date Temp Pulse Resp B/P (MAP) Pulse Ox O2 O2 Flow FiO2 Time Delivery Rate 12/24/18 60 12:00 12/24/18 98.1 18 109/65 97 10:57 (80) 12/24/18 Room Air 00:29 Intake and Output 12/23/18 12/23/18 12/24/18 1515:00 23:00 07:00 IntakeIntake Total 600 ml BalanceBalance 600 ml Exam Constitutional: No alert, No distress Psych: other (Unable to assess) Head: normocephalic Eyes: PERRL Respiratory: clear to auscultation Cardiovascular: regular rate and rhythm Gastrointestinal: soft, non-tender, bowel sounds Extremities: No edema Neurological: other (Sleepy/postictal) Results Result Diagram: 12/24/18 0511 12/24/18 0511 Results 24hrs Laboratory Tests Test 12/23/18 19:32 12/23/18 20:08 12/23/18 21:20 12/23/18 21:49 White Blood Count 16.5 H Red Blood Count 5.38 Hemoglobin 16.5 Hematocrit 51.5 Mean Corpuscular 95.7 Volume Mean Corpuscular 30.7 Hemoglobin Mean Corpuscular 32.0 Hemoglobin Concent Red Cell 11.8 Distribution Width Platelet Count 249 Mean Platelet 10.6 H Volume Immature 1.500 H Granulocytes % Neutrophils % Segmented 41 Neutrophils % (Manual) Band Neutrophils % 5 H (Manual) Lymphocytes % Lymphocytes % 47 (Manual) Monocytes % Monocytes % 1 (Manual) Eosinophils % Basophils % Basophils % 2 (Manual) Metamyelocytes % 2 H (manual) Myelocytes % 1 H (Manual) Promyelocytes % 1 H (Manual) Nucleated Red 1 H Blood Cells % Immature 0.250 H Granulocytes # Neutrophils # Neutrophils # 6.9 (Manual) Band Neutrophils # 0.8 H Lymphocytes 7.7 H (Manual) Lymphocytes # Monocytes # Monocytes # 0.1 L (Manual) Eosinophils # Basophils # Basophils # 0.3 H (Manual) Metamyelocytes # 0.3 H Myelocytes # 0.1 H Promyelocytes # 0.1 H Nucleated Red Blood Cells # Platelet Estimate NORMAL Giant Platelets 1 H Polychromasia 3+ Poikilocytosis 2+ Anisocytosis 2+ Microcytosis 2+ Prothrombin Time 14.0 Prothrombin Time 1.1 Ratio INR International 1.07 Normalized Ratio Activated 23.[address] Time Sodium Level 146 H 143 Potassium Level 4.4 3.7 Chloride Level 102 109 Carbon Dioxide 6 *L 25 # Level Anion Gap 38 H 9 # Blood Urea 16 20 Nitrogen Creatinine 1.70 H 1.27 H Est Glomerular 46 L > 60 Filtrat Rate mL/min Glucose Level 146 121 Calcium Level 10.6 H 9.4 Total Bilirubin 0.3 0.3 Direct Bilirubin 0.00 0.00 Indirect Bilirubin 0.3 0.3 Aspartate Amino 43 35 Transf (AST/SGOT) Alanine 12 L 25 Aminotransferase ( ALT/SGPT) Alkaline 64 47 Phosphatase Troponin I < 0.012 Total Protein 9.4 H 7.4 # Albumin 5.8 H 4.6 # Globulin 3.60 H 2.80 Albumin/Globulin 1.61 1.64 Ratio Ethyl Alcohol < 10.0 H Level Blood Gas Specimen Blood arterial Source Arterial Blood 12/23/2018 8:20:48 Date Drawn PM Arterial Blood pH 7.243 *L (Temp corrected) Arterial Blood 41.4 pCO2 (Temp correct) Arterial Blood pO2 89.4 (Temp corrected) Arterial Blood 17.5 L HCO3 Arterial Blood -9.4 L Base Excess Arterial Blood 94.6 L Oxygen Saturation Saeid Test ACCEPTAB Arterial Blood Gas Right Radial Puncture Site Arterial 0.3 Blood Carboxyhemog lobin Arterial Blood 0.4 Methemoglobin Blood Gas A-a O2 10.8 Differential Oxyhemoglobin 93.9 Percent Blood Gas 37.0 Temperature Blood Gas Actual 18 Respiration Rate Blood Gas Modality ROOM AIR FiO2 21.0 Blood Gas Critical Guanaco ALDRIDGE MD Value Read Back Blood Gas Notified MH Whom Blood Gas Notified 12/23/2018 8:27:27 Time PM Urine Opiates Negative Screen Urine Barbiturates Negative Urine Amphetamines Negative Screen Urine Negative Benzodiazepines Screen Urine Cocaine Negative Screen Urine Cannabinoids Negative Phenytoin < 3.0 L (Dilantin) Level Valproic Acid < 10 L (Depakene) Level Carbamazepine < 3.0 L (Tegretol) Level Test 12/24/18 05:11 12/24/18 13:02 White Blood Count 11.7 #H Red Blood Count 4.40 L Hemoglobin 13.5 L Hematocrit 38.5 #L Mean Corpuscular 87.5 Volume Mean Corpuscular 30.7 Hemoglobin Mean Corpuscular 35.1 Hemoglobin Concent Red Cell 12.0 Distribution Width Platelet Count 140 # Mean Platelet 9.9 Volume Immature 0.300 Granulocytes % Neutrophils % 83.4 H Lymphocytes % 7.5 L Monocytes % 8.5 Eosinophils % 0.0 Basophils % 0.3 Nucleated Red 0.0 Blood Cells % Immature 0.040 H Granulocytes # Neutrophils # 9.8 H Lymphocytes # 0.9 Monocytes # 1.0 H Eosinophils # 0.0 Basophils # 0.0 Nucleated Red 0.0 Blood Cells # Sodium Level 142 Potassium Level 4.3 Chloride Level 108 Carbon Dioxide 25 Level Anion Gap 9 Blood Urea 29 H Nitrogen Creatinine 2.03 H Est Glomerular 38 L Filtrat Rate mL/min Glucose Level 94 Calcium Level 9.1 Magnesium Level 3.0 H Total Bilirubin 0.5 Direct Bilirubin 0.00 Indirect Bilirubin 0.5 Aspartate Amino 45 Transf (AST/SGOT) Alanine 21 Aminotransferase ( ALT/SGPT) Alkaline 35 L Phosphatase Total Protein 6.7 Albumin 4.2 Globulin 2.50 Albumin/Globulin 1.68 Ratio Triglycerides 53 Level Cholesterol Level 176 LDL Cholesterol, 118 Calculated HDL Cholesterol 47 Cholesterol/HDL 3.7 Ratio Thyroid 0.554 Stimulating Hormone (TSH) Creatine Kinase 5572 H Medications Medication Current Medications Lorazepam (Ativan) 2 mg Q2H PRN IV SEIZURES; Start 12/23/18 at 22:00 IV Flush (NS 3 ml) 3 ml PER PROTOCOL IV ; Start 12/23/18 at 22:00 Ondansetron HCl (Zofran Inj) 4 mg Q6H PRN IV NAUSEA/VOMITING; Start 12/23/18 at 22:00 Acetaminophen (Tylenol Tab) 650 mg Q6H PRN PO .PAIN 1-3 OR TEMP; Start 12/23/18 at 22:00 Bisacodyl (Dulcolax) 5 mg DAILY PRN PO .CONSTIPATION; Start 12/23/18 at 22:00 Sodium Chloride 1,000 ml @ 125 mls/hr Q8H IV Last administered on 12/24/18at 13:06; Admin Dose 125 MLS/HR; Start 12/24/18 at 12:30 Docusate Sodium (Colace) 100 mg Q12H PO ; Start 12/24/18 at 22:00 Ondansetron HCl (Zofran Inj) 4 mg Q6H PRN IV NAUSEA AND/OR VOMITING; Start 12/24/18 at 12:30 Famotidine (Pepcid Iv) 20 mg BID IV Last administered on 12/24/18at 13:05; Admin Dose 20 MG; Start 12/24/18 at 12:30 Acetaminophen (Tylenol Tab) 650 mg Q6H PRN PO MILD PAIN(1-3)OR ELEVATED TEMP; Start 12/24/18 at 12:30 Valproate Sodium 1500 mg/Sodium Chloride 115 ml @ 110 mls/hr ONCE ONCE IVPB ; Start 12/24/18 at 14:30; Stop 12/24/18 at 15:32 Valproate Sodium 1000 mg/Sodium Chloride 110 ml @ 110 mls/hr BID IVPB ; Start 12/24/18 at 21:00 EVIE PALMER MD Dec 24, 2018 14:28
[2018-12-24] MEDS ORDERED: VALPROATE INJ 1,500 MG in SOD CHLORIDE 0.9% 100 ML IVPB ONE (14:30)
[2018-12-24] MEDS: VALPROATE INJ 1,000 MG in SOD CHLORIDE 0.9% 100 ML IVPB SCH (20:25)
[2018-12-24] MEDS: DOCUSATE SODIUM 100 MG CAP PO SCH (22:44)
[2018-12-25] VITALS (10 sets, daily range): BP systolic 107–151; BP diastolic 50–87; PULSE 91–151; RESP 15–19
[2018-12-25] MEDS: SOD CHLORIDE 0.9% 1,000 ML IV SCH ×2 (04:47→09:21)
--- NOTE | 2018-12-25 06:59 | EEG ---
EEG NOTE Report Details DATE OF TEST: 12/24/18 HISTORY: The patient is a 33-year-old M w/ epilepsy who presents with breakthrough seizure. This EEG is requested to evaluate for seizures. SEDATION: None. CONDITIONS OF RECORDING: This EEG was recorded digitally on the [employer] machine, using the International 10-20 System of electrodes plus anterior temporals and [place]. STATES SAMPLED: Lethargic. FINDINGS: The background is continuous and grossly symmetric...predominated by polymorphic theta and delta activity..with excess beta activity.. The normal [id number] frequency-amplitude gradient was absent. Photic stimulation does not elicit any definite driving responses or epileptiform discharges. Hyperventilation was not performed. The patient passed into sleep, reaching stage II, characterized by normal and symmetrical vertex waves and spindles. No epileptiform discharges were seen. IMPRESSION: Abnormal electroencephalogram due to: diffuse slowing. COMMENT: The slowing of the background indicates diffuse cortical dysfunction of nonspecific etiology. Excess beta activity may be attributable to the use of medications, including but not limited to benzodiazepines or barbiturates. ASUNCION KINGSLEY Dec 25, 2018 06:59
[2018-12-25] MEDS: FAMOTIDINE 20 MG INJ IV SCH ×2 (09:21→21:19)
[2018-12-25] MEDS: VALPROATE INJ 1,000 MG in SOD CHLORIDE 0.9% 100 ML IVPB SCH ×2 (09:22→21:22)
[2018-12-25] MEDS: DOCUSATE SODIUM 100 MG CAP PO SCH ×2 (09:22→21:17)
--- NOTE | 2018-12-25 10:55 | CONS ---
Assessment/Plan Assessment/Plan Hospital Course 33 yo M with Hx of epilepsy who presents for evaluation of breakthrough seizures... for which neurology is consulted. ? precipitated by medication noncompliance..? CTH is without acute intracranial pathology. CXR was unremarkable Depakote level is subtherapeutic. P: Clarify AED regimen and medication compliance when able Start Depakote for now, pending the above Ativan IV PRN seizure > 5 min or for cluster PT/OT as necessary Other medical management per primary Will follow clinically Consultation Date/Type/Reason Admit Date/Time Dec 23, 2018 at 21:54 Type of Consult Neurology Reason for Consultation seizure Requesting Provider: LEOBARDO SEPULVEDA Date/Time of Note DATE: 12/25/18 TIME: 10:53 24 HR Interval Summary Free Text/Dictation s/p EEG States he feels tired...would like to go home Exam Vital Signs Vitals Vital Signs Date Temp Pulse Resp B/P (MAP) Pulse Ox O2 O2 Flow FiO2 Time Delivery Rate 12/25/18 114 08:01 12/25/18 98.0 16 119/58 96 Room Air 07:46 (78) Intake and Output 12/24/18 12/24/18 12/25/18 1515:00 23:00 07:00 IntakeIntake Total 860 ml 1300 ml BalanceBalance 860 ml 1300 ml Exam PE: Gen Appearance: No Apparent Distress HEENT: Normocephalic Cardiovascular: Regular rate Lungs: Clear bilaterally Abdomen: Soft Extremities: Dry NE: The patient was alert and oriented to person and hospital. Language was normal. Fund of knowledge was normal. Pupils were equal and reactive to light. There was no afferent pupillary defect. Visual ware were normal. Funduscopic examination was limited. Extra-ocular movements were full. Ptosis was absent. There was no nystagmus. Facial sensation was normal. Face was symmetric with normal strength. Hearing was intact. Palate movements were normal. Neck strength was normal. There was normal tongue bulk and speed of movement. Tone was normal. Muscle bulk was normal. I did not see fasciculations. Arms and legs were strong. Vibration sensation was normal. Temperature and pinprick sensation was normal. Rapid alternating movements were normal. There was no dysmetria. There was no intention tremor. Gait was deferred due to bedrest. Arm and leg reflexes were symmetric. James's sign was absent. Plantar respon ses were flexor. ASUNCION KINGSLEY Dec 25, 2018 10:55
--- NOTE | 2018-12-25 11:08 | PN ---
Date/Time of Note Date/Time of Note DATE: 12/25/18 TIME: 11:06 Assessment/Plan VTE Prophylaxis Risk score (from Ns)>0 risk: 4 SCD applied (from [place]): Yes Pharmacological prophylaxis: heparin Lines/Catheters IV Catheter Type (from Nrs): Peripheral IV Assessment/Plan Problems: (1) Seizure disorder Status: Chronic Comment: This time is a little bit sedated after medications to help calm down the seizures. Continue to observe and appreciate neurology is kind and careful input (2) Traumatic rhabdomyolysis Status: Acute Comment: Follow the CPK and watch his renal function. Qualifiers: Encounter type: initial encounter Qualified Codes: T79.6XXA - Traumatic ischemia of muscle, initial encounter (3) Acute renal failure due to rhabdomyolysis Status: Acute Comment: This note based on the renal ultrasound he probably has some chronic kidney disease although we have no way of getting old data. Regardless we will follow this along. I do believe that he needs a little bit more IV fluids. (4) Metabolic acidosis Status: Resolved Comment: Resolved Result Diagram: 12/24/18 0511 12/24/18 0511 Results 24hrs Laboratory Tests Test 12/24/18 13:02 12/24/18 16:00 Creatine Kinase 5572 H Urine Color YELLOW Urine Clarity CLEAR Urine pH 6.0 Urine Specific [place] 1.008 Urine Ketones NEGATIVE Urine Nitrite NEGATIVE Urine Bilirubin NEGATIVE Urine Urobilinogen NEGATIVE Urine Leukocyte Esterase NEGATIVE Urine Microscopic RBC 4 Urine Microscopic WBC 1 Urine Bacteria FEW A Urine Mucus FEW A Urine Hemoglobin 2+ H Urine Glucose NEGATIVE Urine Total Protein 2+ H Subjective 24 Hr Interval Summary Free Text/Dictation Patient presently sleeping and very sedated. He does arouse a little Subjective hx not possible: pt non-verbal Exam/Review of Systems Exam Vitals Vital Signs Date Temp Pulse Resp B/P (MAP) Pulse Ox O2 O2 Flow FiO2 Time Delivery Rate 12/25/18 114 08:01 12/25/18 98.0 16 119/58 96 Room Air 07:46 (78) Intake and Output 12/24/18 12/24/18 12/25/18 1515:00 23:00 07:00 IntakeIntake Total 860 ml 1300 ml BalanceBalance 860 ml 1300 ml Constitutional: non-verbal Neck: supple, non-tender Respiratory: clear to auscultation, normal air movement Cardiovascular: regular rate and rhythm, nl pulses Gastrointestinal: soft, nl liver, spleen, non-tender Results Results 24hrs Laboratory Tests Test 12/24/18 13:02 12/24/18 16:00 Creatine Kinase 5572 H Urine Color YELLOW Urine Clarity CLEAR Urine pH 6.0 Urine Specific [place] 1.008 Urine Ketones NEGATIVE Urine Nitrite NEGATIVE Urine Bilirubin NEGATIVE Urine Urobilinogen NEGATIVE Urine Leukocyte Esterase NEGATIVE Urine Microscopic RBC 4 Urine Microscopic WBC 1 Urine Bacteria FEW A Urine Mucus FEW A Urine Hemoglobin 2+ H Urine Glucose NEGATIVE Urine Total Protein 2+ H Medications Medication Current Medications Lorazepam (Ativan) 2 mg Q2H PRN IV SEIZURES; Start 12/23/18 at 22:00 IV Flush (NS 3 ml) 3 ml PER PROTOCOL IV ; Start 12/23/18 at 22:00 Acetaminophen (Tylenol Tab) 650 mg Q6H PRN PO .PAIN 1-3 OR TEMP Last administered on 12/24/18at 20:25; Admin Dose 650 MG; Start 12/23/18 at 22:00 Bisacodyl (Dulcolax) 5 mg DAILY PRN PO .CONSTIPATION; Start 12/23/18 at 22:00 Docusate Sodium (Colace) 100 mg Q12H PO Last administered on 12/24/18at 22:44; Admin Dose 100 MG; Start 12/24/18 at 22:00 Ondansetron HCl (Zofran Inj) 4 mg Q6H PRN IV NAUSEA AND/OR VOMITING; Start at 12:30 Famotidine (Pepcid Iv) 20 mg BID IV Last administered on 12/25/18at 09:21; Admin Dose 20 MG; Start 12/24/18 at 12:30 Acetaminophen (Tylenol Tab) 650 mg Q6H PRN PO MILD PAIN(1-3)OR ELEVATED TEMP; Start 12/24/18 at 12:30 Valproate Sodium 1000 mg/Sodium Chloride 110 ml @ 110 mls/hr BID IVPB Last administered on 12/25/18at 09:22; Admin Dose 110 MLS/HR; Start 12/24/18 at 21:00 Lactated Ringer's 1,000 ml @ 125 mls/hr Q8H IV ; Start 12/25/18 at 11:30; Status UNV Lactated Ringer's 500 ml @ 500 mls/hr Q1H ONCE IV ; Start 12/25/18 at 11:30; Stop 12/25/18 at 12:29; Status UNV MARIBETH ALLAN MD Dec 25, 2018 11:08
[2018-12-25] MEDS ORDERED: LACTATED RINGER'S 500 ML IV ONE (11:30)
[2018-12-25] MEDS: LACTATED RINGER'S 1,000 ML IV SCH ×2 (13:22→17:37)
--- NOTE | 2018-12-25 16:18 | CONS ---
Assessment/Plan Assessment/Plan Assessment/Plan (Daily) 1, acute kidney injury due to ATN 2. acute rhabdomyolysis due to seizures- cont to monitor 3. acute encephalopathy from breakthrough seizures 4. H/o seizure disorder 5. Elevated Uric acid- started on Allopurinol 100 mg po bid Plan: pt is postictal CK total to assess for rhabdomyolysis Renal US to assess for CKD, to rule out hydronephrosis CK total- elevated Uric acid - elevated Seizure precautions IVF NS at 125 cc/hr Thanks for consultation, will continue to follow up. Patient seen in collaboration with Dr Albarran. Dw staff NAD no seizure activity reported UO (7a-11a) =100 ml per staff no new events reported last night Consultation Date/Type/Reason Admit Date/Time Dec 23, 2018 at 21:54 Initial Consult Date 01/02/19 Type of Consult NEPHROLOGY Requesting Provider: LEOBARDO SEPULVEDA Date/Time of Note DATE: 12/25/18 TIME: 16:14 24 HR Interval Summary Free Text/Dictation NAD no seizure activity reported UO (7a-11a) =100 ml per staff no new events reported last night Thanks for consultation, will continue to follow up. Patient seen in collaboration with Dr Albarran. Dw staff Constitutional: requiring IVF Detailed Summary Eyes: no complaints ENT: no complaints Respiratory: no complaints Cardiovascular: no complaints Gastrointestinal: no complaints Genitourinary: no complaints Musculoskeletal: no complaints Skin: no complaints Neurologic: no complaints Endocrine: no complaints Lymphatic: no complaints Psychological: nl mood/affect Immunologic: no complaints Exam/Review of Systems Exam Vitals Vital Signs Date Temp Pulse Resp B/P (MAP) Pulse Ox O2 O2 Flow FiO2 Time Delivery Rate 12/25/18 112 16:01 12/25/18 98.2 16 151/76 100 Room Air 15:52 (101) Intake and Output 12/24/18 12/24/18 12/25/18 1515:00 23:00 07:00 IntakeIntake Total 860 ml 1300 ml BalanceBalance 860 ml 1300 ml Constitutional: alert (answers " Yes, No" only; goes back to sleep.), well developed Psych: nl mood/affect Head: normocephalic Eyes: nl lids, nl sclera ENMT: nl external ears & nose Neck: supple Respiratory: clear to auscultation Cardiovascular: nl pulses, other (s1s2) Gastrointestinal: soft, non-tender Musculoskeletal: muscle weakness Extremities: edema (trace) Neurological: nl speech, other (alert/responsive) Skin: nl turgor Lymph: nontender Results Result Diagram: 12/25/18 1037 12/25/18 1037 Results 24hrs Laboratory Tests Test 12/25/18 10:33 12/25/18 10:37 Iron Level 12 L Total Iron Binding Capacity 243 Percent Iron Saturation 5 L Vitamin B12 Level 996 H Hepatitis B Surface Antigen NEGATIVE Hepatitis C Antibody NEGATIVE White Blood Count 10.4 Red Blood Count 4.24 L Hemoglobin 13.2 L Hematocrit 37.7 L Mean Corpuscular Volume 88.9 Mean Corpuscular Hemoglobin 31.1 Mean Corpuscular Hemoglobin Concent 35.0 Red Cell Distribution Width 11.8 Platelet Count 89 #L Mean Platelet Volume 10.0 Immature Granulocytes % 1.500 H Neutrophils % 92.4 H Lymphocytes % 2.1 L Monocytes % 3.8 Eosinophils % 0.0 Basophils % 0.2 Nucleated Red Blood Cells % 0.0 Immature Granulocytes # 0.160 H Neutrophils # 9.6 H Lymphocytes # 0.2 L Monocytes # 0.4 Eosinophils # 0.0 Basophils # 0.0 Nucleated Red Blood Cells # 0.0 Sodium Level 136 Potassium Level 4.0 Chloride Level 104 Carbon Dioxide Level 19 L Anion Gap 13 Blood Urea Nitrogen 54 H Creatinine 4.78 #H Est Glomerular Filtrat Rate mL/min 14 L Glucose Level 87 Uric Acid 12.9 H Calcium Level 8.3 L Total Bilirubin 0.7 Direct Bilirubin 0.00 Indirect Bilirubin 0.7 Aspartate Amino Transf (AST/SGOT) 129 #H Alanine Aminotransferase (ALT/SGPT) 39 Alkaline Phosphatase 43 Creatine Kinase 00031 #H Total Protein 6.0 L Albumin 3.5 Globulin 2.50 Albumin/Globulin Ratio 1.40 Valproic Acid (Depakene) Level 70 Medications Medication Current Medications Lorazepam (Ativan) 2 mg Q2H PRN IV SEIZURES; Start 12/23/18 at 22:00 IV Flush (NS 3 ml) 3 ml PER PROTOCOL IV ; Start 12/23/18 at 22:00 Acetaminophen (Tylenol Tab) 650 mg Q6H PRN PO .PAIN 1-3 OR TEMP Last administered on 12/24/18at 20:25; Admin Dose 650 MG; Start 12/23/18 at 22:00 Bisacodyl (Dulcolax) 5 mg DAILY PRN PO .CONSTIPATION; Start 12/23/18 at 22:00 Docusate Sodium (Colace) 100 mg Q12H PO Last administered on 12/24/18at 22:44; Admin Dose 100 MG; Start 12/24/18 at 22:00 Ondansetron HCl (Zofran Inj) 4 mg Q6H PRN IV NAUSEA AND/OR VOMITING; Start 12/24/18 at 12:30 Famotidine (Pepcid Iv) 20 mg BID IV Last administered on 12/25/18 09:21; Admin Dose 20 MG; Start 12/24/18 at 12:30 Acetaminophen (Tylenol Tab) 650 mg Q6H PRN PO MILD PAIN(1-3)OR ELEVATED TEMP; Start 12/24/18 at 12:30 Valproate Sodium 1000 mg/Sodium Chloride 110 ml @ 110 mls/hr BID IVPB Last administered on 12/25/18 09:22; Admin Dose 110 MLS/HR; Start 12/24/18 at 21:00 Lactated Ringer's 1,000 ml @ 125 mls/hr Q8H IV Last administered on 12/25/18 13:22; Admin Dose 125 MLS/HR; Start 12/25/18 at 11:30 TAYLER MOORE Dec 25, 2018 16:18
[2018-12-25] MEDS: ACETAMINOPHEN 325 MG TAB PO PRN (21:18)
[2018-12-25] MEDS: ALLOPURINOL 100 MG TAB PO SCH (21:19)
[2018-12-26] VITALS (13 sets, daily range): BP systolic 111–128; BP diastolic 57–70; PULSE 71–156; RESP 18–20
[2018-12-26] MEDS: LACTATED RINGER'S 1,000 ML IV SCH ×3 (03:03→19:30)
[2018-12-26] MEDS: ACETAMINOPHEN 325 MG TAB PO PRN ×3 (03:25→16:11)
--- NOTE | 2018-12-26 05:27 | CONS ---
Assessment/Plan Assessment/Plan Assessment/Plan (Daily) 1, acute kidney injury due to ATN 2. acute rhabdomyolysis due to seizures- cont to monitor 3. acute encephalopathy from breakthrough seizures 4. H/o seizure disorder 5. Elevated Uric acid- started on Allopurinol 100 mg po bid Plan: pt is postictal CK total to assess for rhabdomyolysis Renal US to assess for CKD, to rule out hydronephrosis CK total- elevated Uric acid - elevated Seizure precautions IVF NS at 125 cc/hr Thanks for consultation, will continue to follow up. Patient seen in collaboration with Dr Albarran. Dw staff Consultation Date/Type/Reason Admit Date/Time Dec 23, 2018 at 21:54 Initial Consult Date 01/02/19 Requesting Provider: LEOBARDO SEPULVEDA Date/Time of Note DATE: 12/26/18 TIME: 05:26 24 HR Interval Summary Free Text/Dictation Febrile- stein cultures per PMD no seizure activity reported wants to use restroom now; unstable walk - no fall/injury reported Dw staff Constitutional: chills, febrile Exam/Review of Systems Exam Vitals Vital Signs Date Temp Pulse Resp B/P (MAP) Pulse Ox O2 O2 Flow FiO2 Time Delivery Rate 12/26/18 102.3 04:28 12/26/18 125 04:00 12/26/18 18 111/57 95 03:45 (75) 12/25/18 Room Air 16:27 Intake and Output 12/25/18 12/25/18 12/26/18 1515:00 23:00 07:00 IntakeIntake Total 1660 ml 1560 ml 1800 ml OutputOutput Total 350 ml 2200 ml 300 ml BalanceBalance 1310 ml -640 ml 1500 ml Results Result Diagram: 12/25/18 1037 12/25/18 1037 Results 24hrs Laboratory Tests Test 12/25/18 10:33 12/25/18 10:37 12/26/18 04:29 Iron Level 12 L Total Iron Binding Capacity 243 Percent Iron Saturation 5 L Vitamin B12 Level 996 H Rapid Plasma Reagin NONREACTIVE Hepatitis B Surface Antigen NEGATIVE Hepatitis C Antibody NEGATIVE White Blood Count 10.4 Pending Red Blood Count 4.24 L Pending Hemoglobin 13.2 L Pending Hematocrit 37.7 L Pending Mean Corpuscular Volume 88.9 Pending Mean Corpuscular Hemoglobin 31.1 Pending Mean Corpuscular Hemoglobin Concent 35.0 Pending Red Cell Distribution Width 11.8 Pending Platelet Count 89 #L Pending Mean Platelet Volume 10.0 Pending Immature Granulocytes % 1.500 H Neutrophils % 92.4 H Lymphocytes % 2.1 L Monocytes % 3.8 Eosinophils % 0.0 Basophils % 0.2 Nucleated Red Blood Cells % 0.0 Immature Granulocytes # 0.160 H Neutrophils # 9.6 H Lymphocytes # 0.2 L Monocytes # 0.4 Eosinophils # 0.0 Basophils # 0.0 Nucleated Red Blood Cells # 0.0 Sodium Level 136 Potassium Level 4.0 Chloride Level 104 Carbon Dioxide Level 19 L Anion Gap 13 Blood Urea Nitrogen 54 H Creatinine 4.78 #H Est Glomerular Filtrat Rate mL/min 14 L Glucose Level 87 Uric Acid 12.9 H Calcium Level 8.3 L Total Bilirubin 0.7 Direct Bilirubin 0.00 Indirect Bilirubin 0.7 Aspartate Amino Transf (AST/SGOT) 129 #H Alanine Aminotransferase (ALT/SGPT) 39 Alkaline Phosphatase 43 Creatine Kinase 53799 #H Total Protein 6.0 L Albumin 3.5 Globulin 2.50 Albumin/Globulin Ratio 1.40 Valproic Acid (Depakene) Level 70 Medications Medication Current Medications Lorazepam (Ativan) 2 mg Q2H PRN IV SEIZURES; Start 12/23/18 at 22:00 IV Flush (NS 3 ml) 3 ml PER PROTOCOL IV ; Start 12/23/18 at 22:00 Bisacodyl (Dulcolax) 5 mg DAILY PRN PO .CONSTIPATION; Start 12/23/18 at 22:00 Docusate Sodium (Colace) 100 mg Q12H PO Last administered on 12/25/18at 21:17; Admin Dose 100 MG; Start 12/24/18 at 22:00 Ondansetron HCl (Zofran Inj) 4 mg Q6H PRN IV NAUSEA AND/OR VOMITING; Start 12/24/18 at 12:30 Famotidine (Pepcid Iv) 20 mg BID IV Last administered on 12/25/18at 21:19; Admin Dose 20 MG; Start 12/24/18 at 12:30 Acetaminophen (Tylenol Tab) 650 mg Q6H PRN PO MILD PAIN(1-3)OR ELEVATED TEMP Last administered on 12/26/18at 03:25; Admin Dose 650 MG; Start 12/24/18 at 12:30 Valproate Sodium 1000 mg/Sodium Chloride 110 ml @ 110 mls/hr BID IVPB Last administered on 12/25/18at 21:22; Admin Dose 110 MLS/HR; Start 12/24/18 at 21:00 Lactated Ringer's 1,000 ml @ 125 mls/hr Q8H IV Last administered on 12/26/18at 03:03; Admin Dose 125 MLS/HR; Start 12/25/18 at 11:30 Allopurinol (Zyloprim) 100 mg BID PO Last administered on 12/25/18at 21:19; Admin Dose 100 MG; Start 12/25/18 at 21:00 TAYLER MOORE Dec 26, 2018 05:27
[2018-12-26] MEDS: ALLOPURINOL 100 MG TAB PO SCH ×2 (09:29→20:24)
[2018-12-26] MEDS: FAMOTIDINE 20 MG INJ IV SCH (09:29)
[2018-12-26] MEDS: VALPROATE INJ 1,000 MG in SOD CHLORIDE 0.9% 100 ML IVPB SCH (09:29)
[2018-12-26] MEDS: DOCUSATE SODIUM 100 MG CAP PO SCH ×2 (09:29→22:00)
--- NOTE | 2018-12-26 09:42 | PN ---
Date/Time of Note Date/Time of Note DATE: 12/26/18 TIME: 09:39 Assessment/Plan VTE Prophylaxis Risk score (from [place])>0 risk: 4 SCD applied (from [place]): Yes Pharmacological prophylaxis: heparin Lines/Catheters IV Catheter Type (from [facility]): Peripheral IV Assessment/Plan Problems: (1) Seizure disorder Status: Chronic Comment: Presently no seizure activity and appreciate neurology input. However this particular episode is proven to be a bit more complicated. He had rhabdomyolysis which is induced or other issues see below (2) Acute renal failure due to rhabdomyolysis Status: Acute Comment: Nephrology is following. (3) Bilateral pneumonia Status: Acute Comment: When he was altered mental status from the seizure disorder he a pparently has aspirated. He now has fever with rigors. On placing him on antibiotics and he is already had blood cultures redrawn Qualifiers: Pneumonia type: aspiration pneumonia Aspiration pneumonia type: unspecified Lung location: lower lobe of lung Qualified Codes: J69.0 - Pneumonitis due to inhalation of food and vomit (4) Metabolic acidosis Status: Resolved Comment: Due to the aspiration pneumonia Result Diagram: 12/26/18 0429 12/26/18 0429 Results 24hrs Laboratory Tests Test 12/25/18 10:33 12/25/18 10:37 12/26/18 04:15 12/26/18 04:29 Iron Level 12 L Total Iron Binding 243 Capacity Percent Iron 5 L Saturation Vitamin B12 Level 996 H Rapid Plasma NONREACTIVE Reagin Hepatitis B NEGATIVE Surface Antigen Hepatitis C NEGATIVE Antibody White Blood Count 10.4 6.7 # Red Blood Count 4.24 L 3.78 L Hemoglobin 13.2 L 11.5 L Hematocrit 37.7 L 32.3 L Mean Corpuscular 88.9 85.4 Volume Mean Corpuscular 31.1 30.4 Hemoglobin Mean Corpuscular 35.0 35.6 Hemoglobin Concent Red Cell 11.8 11.5 Distribution Width Platelet Count 89 #L 62 #L Mean Platelet 10.0 10.2 Volume Immature 1.500 H 0.600 H Granulocytes % Neutrophils % 92.4 H Lymphocytes % 2.1 L Monocytes % 3.8 Eosinophils % 0.0 Basophils % 0.2 Nucleated Red 0.0 0.0 Blood Cells % Immature 0.160 H 0.040 H Granulocytes # Neutrophils # 9.6 H Lymphocytes # 0.2 L Monocytes # 0.4 Eosinophils # 0.0 Basophils # 0.0 Nucleated Red 0.0 Blood Cells # Sodium Level 136 130 L Potassium Level 4.0 3.9 Chloride Level 104 100 Carbon Dioxide 19 L 18 L Level Anion Gap 13 12 Blood Urea 54 H 62 H Nitrogen Creatinine 4.78 #H 5.08 H Est Glomerular 14 L 13 L Filtrat Rate mL/min Glucose Level 87 102 Uric Acid 12.9 H Calcium Level 8.3 L 7.7 L Total Bilirubin 0.7 0.5 Direct Bilirubin 0.00 0.00 Indirect Bilirubin 0.7 0.5 Aspartate Amino 129 #H 305 #H Transf (AST/SGOT) Alanine 39 79 H Aminotransferase ( ALT/SGPT) Alkaline 43 32 L Phosphatase Creatine Kinase 23365 #H Total Protein 6.0 L 5.0 #L Albumin 3.5 2.8 L Globulin 2.50 2.20 Albumin/Globulin 1.40 1.27 Ratio Valproic Acid 70 (Depakene) Level Urine Color YELLOW Urine Clarity SLIGHTLY CLOUDY A Urine pH 5.0 Urine Specific 1.010 [place] Urine Ketones NEGATIVE Urine Nitrite NEGATIVE Urine Bilirubin NEGATIVE Urine Urobilinogen NEGATIVE Urine Leukocyte NEGATIVE Esterase Urine Microscopic 0 RBC Urine Microscopic 2 WBC Urine Squamous MODERATE Epithelial Cells Urine Bacteria FEW A Urine Yeast FEW A (Budding) Urine Hemoglobin 3+ H Urine Glucose NEGATIVE Urine Total 1+ H Protein Lactic Acid Level 1.0 Subjective 24 Hr Interval Summary Free Text/Dictation Patient complains of fever and shaking chills Constitutional: chills, febrile Respiratory: no complaints Cardiovascular: no complaints Gastrointestinal: no complaints Genitourinary: no complaints Exam/Review of Systems Exam Vitals Vital Signs Date Temp Pulse Resp B/P (MAP) Pulse Ox O2 O2 Flow FiO2 Time Delivery Rate 12/26/18 101 08:01 12/26/18 100.0 18 128/70 98 07:25 (89) 12/25/18 Room Air 16:27 Intake and Output 12/25/18 12/25/18 12/26/18 1515:00 23:00 07:00 IntakeIntake Total 1660 ml 1560 ml 2175 ml OutputOutput Total 350 ml 2200 ml 300 ml BalanceBalance 1310 ml -640 ml 1875 ml Constitutional: alert, oriented Neck: supple, non-tender Respiratory: normal air movement, crackles/rales Cardiovascular: regular rate and rhythm, nl pulses Gastrointestinal: soft, nl liver, spleen, non-tender Results Results 24hrs Laboratory Tests Test 12/25/18 10:33 12/25/18 10:37 12/26/18 04:15 12/26/18 04:29 Iron Level 12 L Total Iron Binding 243 Capacity Percent Iron 5 L Saturation Vitamin B12 Level 996 H Rapid Plasma NONREACTIVE Reagin Hepatitis B NEGATIVE Surface Antigen Hepatitis C NEGATIVE Antibody White Blood Count 10.4 6.7 # Red Blood Count 4.24 L 3.78 L Hemoglobin 13.2 L 11.5 L Hematocrit 37.7 L 32.3 L Mean Corpuscular 88.9 85.4 Volume Mean Corpuscular 31.1 30.4 Hemoglobin Mean Corpuscular 35.0 35.6 Hemoglobin Concent Red Cell 11.8 11.5 Distribution Width Platelet Count 89 #L 62 #L Mean Platelet 10.0 10.2 Volume Immature 1.500 H 0.600 H Granulocytes % Neutrophils % 92.4 H Lymphocytes % 2.1 L Monocytes % 3.8 Eosinophils % 0.0 Basophils % 0.2 Nucleated Red 0.0 0.0 Blood Cells % Immature 0.160 H 0.040 H Granulocytes # Neutrophils # 9.6 H Lymphocytes # 0.2 L Monocytes # 0.4 Eosinophils # 0.0 Basophils # 0.0 Nucleated Red 0.0 Blood Cells # Sodium Level 136 130 L Potassium Level 4.0 3.9 Chloride Level 104 100 Carbon Dioxide 19 L 18 L Level Anion Gap 13 12 Blood Urea 54 H 62 H Nitrogen Creatinine 4.78 #H 5.08 H Est Glomerular 14 L 13 L Filtrat Rate mL/min Glucose Level 87 102 Uric Acid 12.9 H Calcium Level 8.3 L 7.7 L Total Bilirubin 0.7 0.5 Direct Bilirubin 0.00 0.00 Indirect Bilirubin 0.7 0.5 Aspartate Amino 129 #H 305 #H Transf (AST/SGOT) Alanine 39 79 H Aminotransferase ( ALT/SGPT) Alkaline 43 32 L Phosphatase Creatine Kinase 35869 #H Total Protein 6.0 L 5.0 #L Albumin 3.5 2.8 L Globulin 2.50 2.20 Albumin/Globulin 1.40 1.27 Ratio Valproic Acid 70 (Depakene) Level Urine Color YELLOW Urine Clarity SLIGHTLY CLOUDY A Urine pH 5.0 Urine Specific 1.010 [place] Urine Ketones NEGATIVE Urine Nitrite NEGATIVE Urine Bilirubin NEGATIVE Urine Urobilinogen NEGATIVE Urine Leukocyte NEGATIVE Esterase Urine Microscopic 0 RBC Urine Microscopic 2 WBC Urine Squamous MODERATE Epithelial Cells Urine Bacteria FEW A Urine Yeast FEW A ([place]) Urine Hemoglobin 3+ H Urine Glucose NEGATIVE Urine Total 1+ H Protein Lactic Acid Level 1.0 Medications Medication Current Medications Lorazepam (Ativan) 2 mg Q2H PRN IV SEIZURES; Start 12/23/18 at 22:00 IV Flush (NS 3 ml) 3 ml PER PROTOCOL IV ; Start 12/23/18 at 22:00 Bisacodyl (Dulcolax) 5 mg DAILY PRN PO .CONSTIPATION; Start 12/23/18 at 22:00 Docusate Sodium (Colace) 100 mg Q12H PO Last administered on 12/26/18 09:29; Admin Dose 100 MG; Start 12/24/18 at 22:00 Ondansetron HCl (Zofran Inj) 4 mg Q6H PRN IV NAUSEA AND/OR VOMITING; Start 12/24/18 at 12:30 Famotidine (Pepcid Iv) 20 mg BID IV Last administered on 12/26/18 09:29; Admin Dose 20 MG; Start 12/24/18 at 12:30 Acetaminophen (Tylenol Tab) 650 mg Q6H PRN PO MILD PAIN(1-3)OR ELEVATED TEMP Last administered on 12/26/18 03:25; Admin Dose 650 MG; Start 12/24/18 at 12:30 Valproate Sodium 1000 mg/Sodium Chloride 110 ml @ 110 mls/hr BID IVPB Last administered on 12/26/18 09:29; Admin Dose 110 MLS/HR; Start 12/24/18 at 21:00 Lactated Ringer's 1,000 ml @ 125 mls/hr Q8H IV Last administered on 12/26/18 03:03; Admin Dose 125 MLS/HR; Start 12/25/18 at 11:30 Allopurinol (Zyloprim) 100 mg BID PO Last administered on 12/26/18 09:29; Admin Dose 100 MG; Start 12/25/18 at 21:00 Piperacillin Sod/ Tazobactam Sod 50 ml @ 100 mls/hr Q8 IVPB ; Start 12/26/18 at 10:00; Status UNV Levofloxacin/ Dextrose 150 ml @ 100 mls/hr ONCE ONCE IVPB ; Start 12/26/18 at 10:00; Stop 12/26/18 at 11:29 MARIBETH ALLAN MD Dec 26, 2018 09:41
[2018-12-26] MEDS ORDERED: PIPER-TAZO 2.25 GM (PMX) 50 ML IVPB SCH (10:00)
[2018-12-26] MEDS ORDERED: LEVOFLOXACIN 750MG/D5W (PMX) 150 ML IVPB ONE (10:00)
--- NOTE | 2018-12-26 10:04 | CONS ---
Assessment/Plan Assessment/Plan Hospital Course 33 yo M with Hx of epilepsy who presents for evaluation of breakthrough seizures... for which neurology is consulted. ? precipitated by medication noncompliance..? CTH is without acute intracranial pathology. CXR was unremarkable Depakote level was subtherapeutic on presentation... P: Continue Depakote as ordered for now; surveillance levels daily Ativan IV PRN seizure > 5 min or for cluster PT/OT as necessary Other medical management per primary Will follow clinically Consultation Date/Type/Reason Admit Date/Time Dec 23, 2018 at 21:54 Type of Consult Neurology Reason for Consultation seizure Requesting Provider: LEOBARDO SEPULVEDA Date/Time of Note DATE: 12/26/18 TIME: 10:02 24 HR Interval Summary Free Text/Dictation Continues acute care Exam Vital Signs Vitals Vital Signs Date Temp Pulse Resp B/P (MAP) Pulse Ox O2 O2 Flow FiO2 Time Delivery Rate 12/26/18 101 08:01 12/26/18 100.0 18 128/70 98 07:25 (89) 12/25/18 Room Air 16:27 Intake and Output 12/25/18 12/25/18 12/26/18 1515:00 23:00 07:00 IntakeIntake Total 1660 ml 1560 ml 2175 ml OutputOutput Total 350 ml 2200 ml 300 ml BalanceBalance 1310 ml -640 ml 1875 ml Exam Comprehensive completed; stable from prior ASUNCION KINGSLEY Dec 26, 2018 10:04
[2018-12-26] MEDS: PIPER-TAZO 2.25 GM (PMX) 50 ML IVPB SCH ×2 (10:49→16:13)
[2018-12-26] MEDS ORDERED: VANCOMYCIN IV PER PHARMACY XX SCH (20:00)
[2018-12-26] MEDS ORDERED: VANCOMYCIN HCL 1.5 GM in SOD CHLORIDE 0.9% 250 ML IVPB ONE (22:00)
[2018-12-27] VITALS (10 sets, daily range): BP systolic 110–142; BP diastolic 64–85; PULSE 62–98; RESP 16–20
[2018-12-27] MEDS: VALPROATE INJ 1,000 MG in SOD CHLORIDE 0.9% 100 ML IVPB SCH ×3 (00:08→20:50)
[2018-12-27] MEDS: FAMOTIDINE 20 MG INJ IV SCH ×3 (00:09→20:50)
[2018-12-27] MEDS: PIPER-TAZO 2.25 GM (PMX) 50 ML IVPB SCH ×4 (01:32→21:30)
[2018-12-27] MEDS: ACETAMINOPHEN 325 MG TAB PO PRN ×3 (02:16→21:51)
[2018-12-27] MEDS: LACTATED RINGER'S 1,000 ML IV SCH ×2 (03:30→09:09)
[2018-12-27] MEDS: ALLOPURINOL 100 MG TAB PO SCH ×2 (09:09→20:49)
[2018-12-27] MEDS: DOCUSATE SODIUM 100 MG CAP PO SCH ×2 (09:09→21:30)
--- NOTE | 2018-12-27 10:10 | PN ---
Date/Time of Note Date/Time of Note DATE: 12/27/18 TIME: 10:10 Assessment/Plan VTE Prophylaxis Risk score (from Ns)>0 risk: 4 SCD applied (from Ns): Yes SCD contraindicated: low risk/ambulating Pharmacological prophylaxis: NA/contraindicated Pharm contraindication: low risk/ambulating Lines/Catheters IV C[facility] Type [facility]from [facility] Mid Line Assessment/Plan Hospital Course S: acts intermittently confused, but will calm down. Spoke with family member/friend on the phone who had some medical experience, he states that he has as the patient's outpatient neurologist to send his medical records to the hospital for our review. This is appreciated. Also he did verbalize the patient had a history of traumatic brain injury as a child, but this was noted to be related to his seizures. He also verbalized concern about patient's persistent fevers. I spoke with the patient about possible history of intravenous drug use, patient did endorse it. Again the patient is somewhat confused, patient stated his last use of IV drug was about a few months ago. Patient also reports some epigastric abdominal pain O: General: very lethargic, but will answer questions appropriately, but gets intermittently aggressive, but calms down with speech HEENT: NC/ AT. PERRL. EOM intact Neck: supple CVS: S1, S2, RRR. no murmurs. no pain on chest wall palpation Lungs: CTA b/l. no wheezing or rhonchi Abd: soft, nontender, +BS Ext: moving all extremities skin: no rashes Assessment and plan: This is a 33-year-old male With known history of seizure disorder was brought to the emergency room via ambulance after being found on the floor was having continuous seizure activity in the emergency room prior to admission. He is currently managed as follows: #1 acute encephalopathy: improved, patient remains mildly confused #2 seizure disorder with breakthrough seizures: -neurology managing, continues on daily depakote shots with surveillance daily -CT head was without acute pathology, -Brain MRI was also negative for acute pathology -EEG showed slowing of background suggestive of diffuse cortical dysfunction of nonspecific etiology -Appreciate neurology reviews recommendations, await discharge clearance 3. Sepsis (persistent ) with Strep pyogenes bacteremia -Continue Vancomycin and Zosyn, source is likely from aspiration pneumonia -Order 2D echo to ensure no vegetations, repeat blood cultures -ID consult 4. Severe Rhabdomyolysis: -continue IV hydration 5. NIKITA with Metabolic acidosis: Likely secondary #4, creatinine levels begining to trend down -renal USS shows medicorenal disease but no obstruction 6. Hyperuricemia -allopurinol per renal 7. Transaminitis -stable indicies, but not normalized -hepatitis screen negative, will order liver USS Dispo: will get ID consult, possible encephalitis ? MRI with contrast? LP? Further treatment strategy will be implemented as per the clinical course. Result Diagram: 12/27/1845812/27/189 Results 24hrs Laboratory Tests Test 12/27/18 04:59 White Blood Count 5.1 # Red Blood Count 3.56 L Hemoglobin 11.1 L Hematocrit 30.6 L Mean Corpuscular Volume 86.0 Mean Corpuscular Hemoglobin 31.2 Mean Corpuscular Hemoglobin Concent 36.3 Red Cell Distribution Width 11.6 Platelet Count 36 #L Mean Platelet Volume 10.2 Immature Granulocytes % 0.400 Neutrophils % Segmented Neutrophils % (Manual) 29 L Band Neutrophils % (Manual) 63 H Lymphocytes % Lymphocytes % (Manual) 3 L Reactive Lymphocytes % (Manual) 3 H Monocytes % Monocytes % (Manual) 1 Eosinophils % Basophils % Metamyelocytes % (manual) 1 H Nucleated Red Blood Cells % 0.0 Immature Granulocytes # 0.020 Neutrophils # Neutrophils # (Manual) 1.6 Band Neutrophils # 3.2 H Lymphocytes (Manual) 0.1 L Lymphocytes # Reactive Lymphocytes # 0.1 H Monocytes # Monocytes # (Manual) 0.0 L Eosinophils # Basophils # Metamyelocytes # 0.0 Nucleated Red Blood Cells # Platelet Estimate SIG DECREASED Giant Platelets 1 H Polychromasia 1+ Anisocytosis 1+ Microcytosis 1+ Macrocytosis 1+ Sodium Level 134 L Potassium Level 3.9 Chloride Level 105 Carbon Dioxide Level 21 Anion Gap 8 Blood Urea Nitrogen 54 H Creatinine 4.36 H Est Glomerular Filtrat Rate mL/min 16 L Glucose Level 96 Calcium Level 8.1 L Total Bilirubin 0.4 Direct Bilirubin 0.00 Indirect Bilirubin 0.4 Aspartate Amino Transf (AST/SGOT) 377 H Alanine Aminotransferase (ALT/SGPT) 114 H Alkaline Phosphatase 36 L Total Protein 4.9 L Albumin 2.6 L Globulin 2.30 Albumin/Globulin Ratio 1.13 Exam/Review of Systems Exam Vitals Vital Signs Date Temp Pulse Resp B/P (MAP) Pulse Ox O2 O2 Flow FiO2 Time Delivery Rate 12/27/18 83 08:01 12/27/18 Room Air 07:49 12/27/18 98.3 16 133/65 91 07:41 (87) Intake and Output 12/26/18 12/26/18 12/27/18 1515:00 23:00 07:00 IntakeIntake Total 1000 ml 1660 ml OutputOutput Total 1400 ml 1050 ml BalanceBalance -400 ml 610 ml Results Results 24hrs Laboratory Tests Test 12/27/18 04:59 White Blood Count 5.1 # Red Blood Count 3.56 L Hemoglobin 11.1 L Hematocrit 30.6 L Mean Corpuscular Volume 86.0 Mean Corpuscular Hemoglobin 31.2 Mean Corpuscular Hemoglobin Concent 36.3 Red Cell Distribution Width 11.6 Platelet Count 36 #L Mean Platelet Volume 10.2 Immature Granulocytes % 0.400 Neutrophils % Segmented Neutrophils % (Manual) 29 L Band Neutrophils % (Manual) 63 H Lymphocytes % Lymphocytes % (Manual) 3 L Reactive Lymphocytes % (Manual) 3 H Monocytes % Monocytes % (Manual) 1 Eosinophils % Basophils % Metamyelocytes % (manual) 1 H Nucleated Red Blood Cells % 0.0 Immature Granulocytes # 0.020 Neutrophils # Neutrophils # (Manual) 1.6 Band Neutrophils # 3.2 H Lymphocytes (Manual) 0.1 L Lymphocytes # Reactive Lymphocytes # 0.1 H Monocytes # Monocytes # (Manual) 0.0 L Eosinophils # Basophils # Metamyelocytes # 0.0 Nucleated Red Blood Cells # Platelet Estimate SIG DECREASED Giant Platelets 1 H Polychromasia 1+ Anisocytosis 1+ Microcytosis 1+ Macrocytosis 1+ Sodium Level 134 L Potassium Level 3.9 Chloride Level 105 Carbon Dioxide Level 21 Anion Gap 8 Blood Urea Nitrogen 54 H Creatinine 4.36 H Est Glomerular Filtrat Rate mL/min 16 L Glucose Level 96 Calcium Level 8.1 L Total Bilirubin 0.4 Direct Bilirubin 0.00 Indirect Bilirubin 0.4 Aspartate Amino Transf (AST/SGOT) 377 H Alanine Aminotransferase (ALT/SGPT) 114 H Alkaline Phosphatase 36 L Total Protein 4.9 L Albumin 2.6 L Globulin 2.30 Albumin/Globulin Ratio 1.13 Medications Medication Current Medications Lorazepam (Ativan) 2 mg Q2H PRN IV SEIZURES; Start 12/23/18 at 22:00 IV Flush (NS 3 ml) 3 ml PER PROTOCOL IV ; Start 12/23/18 at 22:00 Bisacodyl (Dulcolax) 5 mg DAILY PRN PO .CONSTIPATION; Start 12/23/18 at 22:00 Docusate Sodium (Colace) 100 mg Q12H PO Last administered on 12/26/18 09:29; Admin Dose 100 MG; Start 12/24/18 at 22:00 Ondansetron HCl (Zofran Inj) 4 mg Q6H PRN IV NAUSEA AND/OR VOMITING; Start 12/24/18 at 12:30 Famotidine (Pepcid Iv) 20 mg BID IV Last administered on 12/27/18 09:09; Admin Dose 20 MG; Start 12/24/18 at 12:30 Acetaminophen (Tylenol Tab) 650 mg Q6H PRN PO MILD PAIN(1-3)OR ELEVATED TEMP Last administered on 12/27/18 02:16; Admin Dose 650 MG; Start 12/24/18 at 12:30 Valproate Sodium 1000 mg/Sodium Chloride 110 ml @ 110 mls/hr BID IVPB Last administered on 12/27/18 09:09; Admin Dose 110 MLS/HR; Start 12/24/18 at 21:00 Lactated Ringer's 1,000 ml @ 125 mls/hr Q8H IV Last administered on 12/27/18 09:09; Admin Dose 125 MLS/HR; Start 12/25/18 at 11:30 Allopurinol (Zyloprim) 100 mg BID PO Last administered on 12/27/18 09:09; Admin Dose 100 MG; Start 12/25/18 at 21:00 Piperacillin Sod/ Tazobactam Sod 50 ml @ 100 mls/hr Q8 IVPB Last administered on 12/27/18 05:37; Admin Dose 100 MLS/HR; Start 12/26/18 at 10:00 Vancomycin HCl (Vanco Iv Per Pharmacy) VANCOMYCIN PER PHARMACY PER PROTOCOL XX ; Start 12/26/18 at 20:00 LEOBARDO SEPULVEDA Dec 27, 2018 10:10
--- NOTE | 2018-12-27 12:37 | CONS ---
Assessment/Plan Assessment/Plan Hospital Course 33 yo M with Hx of epilepsy who presents for evaluation of breakthrough seizures... for which neurology is consulted. ? precipitated by medication noncompliance..? CTH is without acute intracranial pathology. CXR was unremarkable Depakote level was subtherapeutic on presentation... P: Continue Depakote as ordered for now; surveillance levels daily Ativan IV PRN seizure > 5 min or for cluster PT/OT as necessary Other medical management per primary Will follow clinically Consultation Date/Type/Reason Admit Date/Time Dec 23, 2018 at 21:54 Type of Consult Neurology Requesting Provider: LEOBARDO SEPULVEDA Date/Time of Note DATE: 12/27/18 TIME: 12:37 Exam Vital Signs Vitals Vital Signs Date Temp Pulse Resp B/P (MAP) Pulse Ox O2 O2 Flow FiO2 Time Delivery Rate 12/27/18 102.0 12:28 12/27/18 85 12:18 12/27/18 20 138/76 97 12:18 (96) 12/27/18 Room Air 12:05 Intake and Output 12/26/18 12/26/18 12/27/18 1515:00 23:00 07:00 IntakeIntake Total 1000 ml 1660 ml OutputOutput Total 1400 ml 1050 ml BalanceBalance -400 ml 610 ml PADMINI STODDARD [employer] Dec 27, 2018 12:37
--- NOTE | 2018-12-27 13:01 | CONS ---
Assessment/Plan Assessment/Plan Hospital Course 33 yo M with Hx of epilepsy who presents for evaluation of breakthrough seizures... for which neurology is consulted. ? precipitated by medication noncompliance..? CTH is without acute intracranial pathology. CXR was unremarkable Depakote level was subtherapeutic on presentation... P: Continue Depakote as ordered for now; surveillance levels daily Ativan IV PRN seizure > 5 min or for cluster PT/OT as necessary Other medical management per primary Will follow clinically Consultation Date/Type/Reason Admit Date/Time Dec 23, 2018 at 21:54 Type of Consult Neurology Reason for Consultation seizure Requesting Provider: LEOBARDO SEPULVEDA Date/Time of Note DATE: 12/27/18 TIME: 13:00 24 HR Interval Summary Free Text/Dictation Continues acute care Exam Vital Signs Vitals Vital Signs Date Temp Pulse Resp B/P (MAP) Pulse Ox O2 O2 Flow FiO2 Time Delivery Rate 12/27/18 102.0 12:28 12/27/18 85 12:18 12/27/18 20 138/76 97 12:18 (96) 12/27/18 Room Air 12:05 Intake and Output 12/26/18 12/26/18 12/27/18 1515:00 23:00 07:00 IntakeIntake Total 1000 ml 1660 ml OutputOutput Total 1400 ml 1050 ml BalanceBalance -400 ml 610 ml Exam PE: Gen Appearance: No Apparent Distress HEENT: Normocephalic Cardiovascular: Regular rate Lungs: Clear bilaterally Abdomen: Soft Extremities: Dry NE: The patient was alert and oriented to person and hospital. Language was normal. Fund of knowledge was normal. Pupils were equal and reactive to light. There was no afferent pupillary defect. Visual ware were normal. Funduscopic examination was limited. Extra-ocular movements were full. Ptosis was absent. There was no nystagmus. Facial sensation was normal. Face was symmetric with normal strength. Hearing was intact. Palate movements were normal. Neck strength was normal. There was normal tongue bulk and speed of movement. Tone was normal. Muscle bulk was normal. I did not see fasciculations. Arms and legs were strong. Vibration sensation was normal. Temperature and pinprick sensation was normal. Rapid alternating movements were normal. There was no dysmetria. There was no intention tremor. Gait was deferred due to bedrest. Arm and leg reflexes were symmetric. James's sign was absent. Plantar responses were flexor. ASUNCION KINGSLEY Dec 27, 2018 13:01 PADMINI STODDARD NP Dec 27, 2018 14:20
[2018-12-27] MEDS: SOD CHLORIDE 0.9% 1,000 ML IV SCH (15:23)
--- NOTE | 2018-12-27 16:09 | CONS ---
Assessment/Plan Assessment/Plan Assessment/Plan (Daily) 1, acute kidney injury due to ATN from sepsis and acute rhabdomyolysis 2. acute rhabdomyolysis due to seizures 3. acute encephalopathy from breakthrough seizures 4. H/o seizure disorder 5. Sepsis due to Streptococcus pyogenes bacteremia Plan: BUN/Cr 54/4.36, HCo3 21, LFTs are still high, BP stable decrease IVF rate to NS 75 cchr CK total in AM labs Renal US showed No evidence of obstructive uropathy, calculus or mass. Echogenic kidneys consistent with renal medical disease. IV abx as per ID for sepsis, Renally dose all abx and monitor all electrolytes will follow up Consultation Date/Type/Reason Admit Date/Time Dec 23, 2018 at 21:54 Initial Consult Date 01/02/19 Type of Consult NEPHROLOGY Requesting Provider: LEOBARDO SEPULVEDA Date/Time of Note DATE: 12/27/18 TIME: 16:09 24 HR Interval Summary Free Text/Dictation Cr slightly improved to 4.36, making adequate urine, Blood cx grew Step Pyogenes Exam/Review of Systems Exam Vitals Vital Signs Date Temp Pulse Resp B/P (MAP) Pulse Ox O2 O2 Flow FiO2 Time Delivery Rate 12/27/18 99.9 84 20 110/64 96 14:30 (79) 12/27/18 Room Air 12:05 Intake and Output 12/26/18 12/26/18 12/27/18 1515:00 23:00 07:00 IntakeIntake Total 1000 ml 1660 ml OutputOutput Total 1400 ml 1050 ml BalanceBalance -400 ml 610 ml Exam Constitutional: No alert, No distress Psych: other (Unable to assess) Head: normocephalic Eyes: PERRL Respiratory: clear to auscultation Cardiovascular: regular rate and rhythm Gastrointestinal: soft, non-tender, bowel sounds Extremities: No edema Neurological: other (Sleepy/postictal) Results Result Diagram: 12/27/18 0459 12/27/189 Results 24hrs Laboratory Tests Test 12/27/18 04:59 White Blood Count 5.1 # Red Blood Count 3.56 L Hemoglobin 11.1 L Hematocrit 30.6 L Mean Corpuscular Volume 86.0 Mean Corpuscular Hemoglobin 31.2 Mean Corpuscular Hemoglobin Concent 36.3 Red Cell Distribution Width 11.6 Platelet Count 36 #L Mean Platelet Volume 10.2 Immature Granulocytes % 0.400 Neutrophils % Segmented Neutrophils % (Manual) 29 L Band Neutrophils % (Manual) 63 H Lymphocytes % Lymphocytes % (Manual) 3 L Reactive Lymphocytes % (Manual) 3 H Monocytes % Monocytes % (Manual) 1 Eosinophils % Basophils % Metamyelocytes % (manual) 1 H Nucleated Red Blood Cells % 0.0 Immature Granulocytes # 0.020 Neutrophils # Neutrophils # (Manual) 1.6 Band Neutrophils # 3.2 H Lymphocytes (Manual) 0.1 L Lymphocytes # Reactive Lymphocytes # 0.1 H Monocytes # Monocytes # (Manual) 0.0 L Eosinophils # Basophils # Metamyelocytes # 0.0 Nucleated Red Blood Cells # Platelet Estimate SIG DECREASED Giant Platelets 1 H Polychromasia 1+ Anisocytosis 1+ Microcytosis 1+ Macrocytosis 1+ Sodium Level 134 L Potassium Level 3.9 Chloride Level 105 Carbon Dioxide Level 21 Anion Gap 8 Blood Urea Nitrogen 54 H Creatinine 4.36 H Est Glomerular Filtrat Rate mL/min 16 L Glucose Level 96 Calcium Level 8.1 L Total Bilirubin 0.4 Direct Bilirubin 0.00 Indirect Bilirubin 0.4 Aspartate Amino Transf (AST/SGOT) 377 H Alanine Aminotransferase (ALT/SGPT) 114 H Alkaline Phosphatase 36 L Total Protein 4.9 L Albumin 2.6 L Globulin 2.30 Albumin/Globulin Ratio 1.13 Medications Medication Current Medications Lorazepam (Ativan) 2 mg Q2H PRN IV SEIZURES; Start 12/23/18 at 22:00 IV Flush (NS 3 ml) 3 ml PER PROTOCOL IV ; Start 12/23/18 at 22:00 Bisacodyl (Dulcolax) 5 mg DAILY PRN PO .CONSTIPATION; Start 12/23/18 at 22:00 Docusate Sodium (Colace) 100 mg Q12H PO Last administered on 12/26/18at 09:29; Admin Dose 100 MG; Start 12/24/18 at 22:00 Ondansetron HCl (Zofran Inj) 4 mg Q6H PRN IV NAUSEA AND/OR VOMITING; Start 12/24/18 at 12:30 Famotidine (Pepcid Iv) 20 mg BID IV Last administered on 12/27/18at 09:09; Admin Dose 20 MG; Start 12/24/18 at 12:30 Acetaminophen (Tylenol Tab) 650 mg Q6H PRN PO MILD PAIN(1-3)OR ELEVATED TEMP Last administered on 12/27/18 12:28; Admin Dose 650 MG; Start 12/24/18 at 12:30 Valproate Sodium 1000 mg/Sodium Chloride 110 ml @ 110 mls/hr BID IVPB Last administered on 12/27/18 09:09; Admin Dose 110 MLS/HR; Start 12/24/18 at 21:00 Allopurinol (Zyloprim) 100 mg BID PO Last administered on 12/27/18 09:09; Admin Dose 100 MG; Start 12/25/18 at 21:00 Piperacillin Sod/ Tazobactam Sod 50 ml @ 100 mls/hr Q8 IVPB Last administered on 12/27/18 15:21; Admin Dose 100 MLS/HR; Start 12/26/18 at 10:00 Vancomycin HCl (Vanco Iv Per Pharmacy) VANCOMYCIN PER PHARMACY PER PROTOCOL XX ; Start 12/26/18 at 20:00 Miscellaneous Information (*Rx Drug Level Order Reminder*) 1 0500 ONCE XX ; Start 12/28/18 at 05:00; Stop 12/28/18 at 05:01 Sodium Chloride 1,000 ml @ 125 mls/hr Q8H IV Last administered on 12/27/18at 15:23; Admin Dose 125 MLS/HR; Start 12/27/18 at 15:00 EVIE PALMER MD Dec 27, 2018 16:09
--- NOTE | 2018-12-27 17:00 | CONS ---
DATE OF ADMISSION: 12/23/2018 DATE OF CONSULTATION: 12/27/2018 TYPE OF CONSULTATION: Infectious disease. REASON FOR CONSULTATION: Antibiotic management. HISTORY OF PRESENT ILLNESS: Gal Medrano is a 33-year-old male who comes in with acute encephalo jaiden, etiology is toxic metabolic versus seizures versus others. Patient had a temperature of 102. He had seizures witnessed, was postictal. He has a known history of seizures. Patient was talking to his daughter on the phone. He is feeling tired. He has felt as if he is going to have a seizure. He states that he has an aura prior to seizure. She called 911 and patient was having a witnessed tonic-clonic seizure. They stated that the seizure had subsequently stopped without any medication, but he seemed agitated and confused. PAST MEDICAL HISTORY: Operations: None. FAMILY HISTORY: Noncontributory. SOCIAL HISTORY: He does not smoke, drink or abuse drugs. HOSPITAL COURSE: On the his white count was 16.5, H and H of 16.5/51.5, platelet count 249,000. BUN and creatinine 16/1.7. His CO2 at the time was 6.1, so he is severely acidotic. He had 41 poly s, 5 bands. The patient was given Ativan alone. Blood cultures were obtained. He had another tonic -clonic seizure in the Emergency Room that lasted for 1 minute and resolved after receiving another d ose of IV Ativan. The patient was therefore admitted. He was seen by Dr. Garcia. IMAGING: A CT scan without acute intracranial pathology. Chest x-ray unremarkable. The patient int ermittently confused. PAST MEDICAL HISTORY: Operations as outlined. FAMILY HISTORY: Noncontributory. SOCIAL HISTORY: Does not smoke, drink or abuse drugs. ALLERGIES: NONE TO PENICILLIN, SULFA OR FOODS. MEDICATIONS: Per chart. REVIEW OF SYSTEMS: Noncontributory. PHYSICAL EXAMINATION: GENERAL: The patient is lethargic but answers questions. SKIN: Without generalized rash. HEENT: Within normal limits. NECK: Supple. LYMPH NODES: None palpable. CHEST: Decreased breath sounds at the bases. HEART: Without murmur or gallop. ABDOMEN: Soft, nontender, without organosplenomegaly or masses. EXTREMITIES: Without cyanosis, clubbing, or edema. RECTAL AND GENITAL: Deferred. NEUROLOGIC: No focal neurological abnormalities. Additionally patient now has blood cultures for group A strep and is on vancomycin and Zosyn. An MRI of the brain shows no acute intracranial pathology. X-ray shows bibasilar pneumonia. Patient has n umerous sources for infection. We must rule out possibility there if anything neurological is going on aside from seizures. He does have probable aspiration pneumonia as a result of his group A strep. I will dictate my findings to the hospitalists and Dr. Cazares. Dictated By: DERICK LOMBARDI MD, JD/NTS Conf#: [id number] DID#: [id number] CC: ROXANNA MCKEON MD;*EndCC*
[2018-12-28 01:12] VITALS: BP 110/57; PULSE 66; RESP 17
[2018-12-28] MEDS ORDERED: ALBUTEROL/IPRATROPIUM (NEB) 3 ML AMP HHN PRN (02:30)
[2018-12-28] MEDS: SOD CHLORIDE 0.9% 1,000 ML IV SCH ×2 (02:44→13:42)
[2018-12-28] MEDS: PIPER-TAZO 2.25 GM (PMX) 50 ML IVPB SCH ×2 (05:37→15:33)
[2018-12-28] MEDS: PANTOPRAZOLE 40 MG INJ IV SCH (05:37)
[2018-12-28 07:41] VITALS: BP 128/73; PULSE 67; RESP 18
[2018-12-28] MEDS: VALPROATE INJ 1,000 MG in SOD CHLORIDE 0.9% 100 ML IVPB SCH ×2 (08:29→22:37)
[2018-12-28] MEDS: ALLOPURINOL 100 MG TAB PO SCH ×2 (09:00→21:22)
--- NOTE | 2018-12-28 09:26 | PN ---
Date/Time of Note Date/Time of Note DATE: 12/28/18 TIME: 09:26 Assessment/Plan VTE Prophylaxis Risk score (from [facility])>0 risk: 4 SCD applied (from [place]): Yes SCD contraindicated: low risk/ambulating Pharmacological prophylaxis: NA/contraindicated Pharm contraindication: low risk/ambulating Lines/Catheters IV Catheter Type (from [facility]): Mid Line Assessment/Plan Hospital Course S: doing much better, wants to be discharged, still with some difficulty breathing however O: General: alert, oriented, ill looking HEENT: NC/ AT. PERRL. EOM intact Neck: supple CVS: S1, S2, RRR. no murmurs. no pain on chest wall palpation Lungs: diminished ++, no wheezing Abd: soft, nontender, +BS Ext: moving all extremities skin: no rashes Assessment and plan: This is a 33-year-old male With known history of seizure disorder was brought to the emergency room via ambulance after being found on the floor was having continuous seizure activity in the emergency room prior to admission. He is currently managed as follows: #1 acute encephalopathy: improved, patient remains mildly confused #2 seizure disorder with breakthrough seizures: -neurology managing, continues on daily depakote shots with surveillance daily -CT head was without acute pathology, -Brain MRI was also negative for acute pathology -EEG showed slowing of background suggestive of diffuse cortical dysfunction of nonspecific etiology -Appreciate neurology reviews recommendations -patient developed high grade fevers on day 2 of admission, was thought to be 2/2 pna/ bacteremia 3. Sepsis (persistent ) with Strep pyogenes bacteremia and aspiration pneumonia -Continue Vancomycin and Zosyn, source is likely from aspiration pneumonia -Order 2D echo to ensure no vegetations, repeat blood cultures -ID consult 4. Severe Rhabdomyolysis: -continue IV hydration, CK levels still trending up 5. NIKITA with Metabolic acidosis: Likely secondary #4, creatinine levels begining to trend down -renal USS shows medicorenal disease but no obstruction 6. Hyperuricemia -allopurinol per renal 7. Transaminitis -stable indicies, but not normalized -hepatitis screen negative, -no cirrhosis on USS 8. Substance abuse -patient does endorse IV drug use about a month ago, but he was somewhat confused at the time Dispo: sepsis likely 2/2 pna confirmed on CXR continue abx continue IVF Further treatment strategy will be implemented as per the clinical course. Result Diagram: 12/28/18 0447 12/28/18 0447 Results 24hrs Laboratory Tests Test 12/28/18 04:47 White Blood Count 5.3 Red Blood Count 3.62 L Hemoglobin 11.2 L Hematocrit 30.7 L Mean Corpuscular Volume 84.8 Mean Corpuscular Hemoglobin 30.9 Mean Corpuscular Hemoglobin Concent 36.5 Red Cell Distribution Width 11.9 Platelet Count 36 L Mean Platelet Volume 11.5 H Immature Granulocytes % 0.400 Neutrophils % Segmented Neutrophils % (Manual) 35 L Band Neutrophils % (Manual) 50 H Lymphocytes % Lymphocytes % (Manual) 8 L Reactive Lymphocytes % (Manual) 7 H Monocytes % Eosinophils % Basophils % Nucleated Red Blood Cells % 0.0 Immature Granulocytes # 0.020 Neutrophils # Neutrophils # (Manual) 2.0 Band Neutrophils # 2.6 H Lymphocytes (Manual) 0.4 L Lymphocytes # Reactive Lymphocytes # 0.3 H Monocytes # Eosinophils # Basophils # Nucleated Red Blood Cells # Platelet Estimate SIG DECREASED Polychromasia 1+ Poikilocytosis 1+ Sodium Level 138 Potassium Level 3.9 Chloride Level 107 Carbon Dioxide Level 23 Anion Gap 8 Blood Urea Nitrogen 37 #H Creatinine 3.04 #H Est Glomerular Filtrat Rate mL/min 24 L Glucose Level 97 Calcium Level 8.2 L Magnesium Level 2.3 Creatine Kinase 26952 H Random Vancomycin Level 5.8 Valproic Acid (Depakene) Level 92 Exam/Review of Systems Exam Vitals Vital Signs Date Temp Pulse Resp B/P (MAP) Pulse Ox O2 O2 Flow FiO2 Time Delivery Rate 12/28/18 98.0 67 18 128/73 94 Nasal 07:41 (91) Cannula Intake and Output 12/27/18 12/27/18 12/28/18 1515:00 23:00 07:00 IntakeIntake Total 1135 ml 1050 ml 1275 ml OutputOutput Total 600 ml BalanceBalance 535 ml 1050 ml 1275 ml Results Results 24hrs Laboratory Tests Test 12/28/18 04:47 White Blood Count 5.3 Red Blood Count 3.62 L Hemoglobin 11.2 L Hematocrit 30.7 L Mean Corpuscular Volume 84.8 Mean Corpuscular Hemoglobin 30.9 Mean Corpuscular Hemoglobin Concent 36.5 Red Cell Distribution Width 11.9 Platelet Count 36 L Mean Platelet Volume 11.5 H Immature Granulocytes % 0.400 Neutrophils % Segmented Neutrophils % (Manual) 35 L Band Neutrophils % (Manual) 50 H Lymphocytes % Lymphocytes % (Manual) 8 L Reactive Lymphocytes % (Manual) 7 H Monocytes % Eosinophils % Basophils % Nucleated Red Blood Cells % 0.0 Immature Granulocytes # 0.020 Neutrophils # Neutrophils # (Manual) 2.0 Band Neutrophils # 2.6 H Lymphocytes (Manual) 0.4 L Lymphocytes # Reactive Lymphocytes # 0.3 H Monocytes # Eosinophils # Basophils # Nucleated Red Blood Cells # Platelet Estimate SIG DECREASED Polychromasia 1+ Poikilocytosis 1+ Sodium Level 138 Potassium Level 3.9 Chloride Level 107 Carbon Dioxide Level 23 Anion Gap 8 Blood Urea Nitrogen 37 #H Creatinine 3.04 #H Est Glomerular Filtrat Rate mL/min 24 L Glucose Level 97 Calcium Level 8.2 L Magnesium Level 2.3 Creatine Kinase 40802 H Random Vancomycin Level 5.8 Valproic Acid (Depakene) Level 92 Medications Medication Current Medications Lorazepam (Ativan) 2 mg Q2H PRN IV SEIZURES; Start 12/23/18 at 22:00 IV Flush (NS 3 ml) 3 ml PER PROTOCOL IV ; Start 12/23/18 at 22:00 Bisacodyl (Dulcolax) 5 mg DAILY PRN PO .CONSTIPATION; Start 12/23/18 at 22:00 Docusate Sodium (Colace) 100 mg Q12H PO Last administered on 12/27/18at 21:30; Admin Dose 100 MG; Start 12/24/18 at 22:00 Ondansetron HCl (Zofran Inj) 4 mg Q6H PRN IV NAUSEA AND/OR VOMITING; Start 12/24/18 at 12:30 Acetaminophen (Tylenol Tab) 650 mg Q6H PRN PO MILD PAIN(1-3)OR ELEVATED TEMP Last administered on 12/27/18at 21:51; Admin Dose 650 MG; Start 12/24/18 at 12:30 Valproate Sodium 1000 mg/Sodium Chloride 110 ml @ 110 mls/hr BID IVPB Last administered on 12/28/18at 08:29; Admin Dose 110 MLS/HR; Start 12/24/18 at 21:00 Allopurinol (Zyloprim) 100 mg BID PO Last administered on 12/27/18at 20:49; Admin Dose 100 MG; Start 12/25/18 at 21:00 Piperacillin Sod/ Tazobactam Sod 50 ml @ 100 mls/hr Q8 IVPB Last administered on 12/28/18at 05:37; Admin Dose 100 MLS/HR; Start 12/26/18 at 10:00 Vancomycin HCl (Vanco Iv Per Pharmacy) VANCOMYCIN PER PHARMACY PER PROTOCOL XX ; Start 12/26/18 at 20:00 Sodium Chloride 1,000 ml @ 75 mls/hr [id number] IV Last administered on 12/28/18at 02:44; Admin Dose 75 MLS/HR; Start 12/27/18 at 15:00 Pantoprazole (Protonix Iv) 40 mg DAILY@0600 IV Last administered on 12/28/18at 05:37; Admin Dose 40 MG; Start 12/28/18 at 06:00 Albuterol/ Ipratropium (Duoneb) 3 ml Q4H RESP THERAPY PRN HHN SHORTNESS OF BREATH; Start 12/28/18 at 02:30 LEOBARDO SEPULVEDA Dec 28, 2018 09:26
[2018-12-28] MEDS: DOCUSATE SODIUM 100 MG CAP PO SCH ×2 (10:00→21:23)
--- NOTE | 2018-12-28 10:15 | CONS ---
Assessment/Plan Assessment/Plan Assessment/Plan (Daily) 1, acute kidney injury due to ATN from sepsis and acute rhabdomyolysis 2. acute rhabdomyolysis due to seizures 3. acute encephalopathy from breakthrough seizures 4. H/o seizure disorder 5. Sepsis due to Streptococcus pyogenes bacteremia Plan: BUN/Cr 37/3.04, HCo3 21, CK total still high , electrolyte sstable IVF NS 75 cchr Renal US showed No evidence of obstructive uropathy, calculus or mass. Echogenic kidneys consistent with renal medical disease. IV abx as per ID for sepsis, Renally dose all abx and monitor all electrolytes will follow up Consultation Date/Type/Reason Admit Date/Time Dec 23, 2018 at 21:54 Initial Consult Date 01/02/19 Type of Consult NEPHROLOGY Requesting Provider: LEOBARDO SEPULVEDA Date/Time of Note DATE: 12/28/18 TIME: 10:15 24 HR Interval Summary Free Text/Dictation BUN/Cr improved to 37/3.07, BP stable, afebrile Exam/Review of Systems Exam Vitals Vital Signs Date Temp Pulse Resp B/P (MAP) Pulse Ox O2 O2 Flow FiO2 Time Delivery Rate 12/28/18 98.0 67 18 128/73 94 Nasal 07:41 (91) Cannula Intake and Output 12/27/18 12/27/18 12/28/18 1515:00 23:00 07:00 IntakeIntake Total 1135 ml 1050 ml 1275 ml OutputOutput Total 600 ml BalanceBalance 535 ml 1050 ml 1275 ml Results Result Diagram: 12/28/18 0447 12/28/187 Results 24hrs Laboratory Tests Test 12/28/18 04:47 White Blood Count 5.3 Red Blood Count 3.62 L Hemoglobin 11.2 L Hematocrit 30.7 L Mean Corpuscular Volume 84.8 Mean Corpuscular Hemoglobin 30.9 Mean Corpuscular Hemoglobin Concent 36.5 Red Cell Distribution Width 11.9 Platelet Count 36 L Mean Platelet Volume 11.5 H Immature Granulocytes % 0.400 Neutrophils % Segmented Neutrophils % (Manual) 35 L Band Neutrophils % (Manual) 50 H Lymphocytes % Lymphocytes % (Manual) 8 L Reactive Lymphocytes % (Manual) 7 H Monocytes % Eosinophils % Basophils % Nucleated Red Blood Cells % 0.0 Immature Granulocytes # 0.020 Neutrophils # Neutrophils # (Manual) 2.0 Band Neutrophils # 2.6 H Lymphocytes (Manual) 0.4 L Lymphocytes # Reactive Lymphocytes # 0.3 H Monocytes # Eosinophils # Basophils # Nucleated Red Blood Cells # Platelet Estimate SIG DECREASED Polychromasia 1+ Poikilocytosis 1+ Sodium Level 138 Potassium Level 3.9 Chloride Level 107 Carbon Dioxide Level 23 Anion Gap 8 Blood Urea Nitrogen 37 #H Creatinine 3.04 #H Est Glomerular Filtrat Rate mL/min 24 L Glucose Level 97 Calcium Level 8.2 L Magnesium Level 2.3 Creatine Kinase 43689 H Random Vancomycin Level 5.8 Valproic Acid (Depakene) Level 92 Medications Medication Current Medications Lorazepam (Ativan) 2 mg Q2H PRN IV SEIZURES; Start 12/23/18 at 22:00 IV Flush (NS 3 ml) 3 ml PER PROTOCOL IV ; Start 12/23/18 at 22:00 Bisacodyl (Dulcolax) 5 mg DAILY PRN PO .CONSTIPATION; Start 12/23/18 at 22:00 Docusate Sodium (Colace) 100 mg Q12H PO Last administered on 12/27/18at 21:30; Admin Dose 100 MG; Start 12/24/18 at 22:00 Ondansetron HCl (Zofran Inj) 4 mg Q6H PRN IV NAUSEA AND/OR VOMITING; Start 12/24/18 at 12:30 Acetaminophen (Tylenol Tab) 650 mg Q6H PRN PO MILD PAIN(1-3)OR ELEVATED TEMP Last administered on 12/27/18at 21:51; Admin Dose 650 MG; Start 12/24/18 at 12:30 Valproate Sodium 1000 mg/Sodium Chloride 110 ml @ 110 mls/hr BID IVPB Last administered on 12/28/18at 08:29; Admin Dose 110 MLS/HR; Start 12/24/18 at 21:00 Allopurinol (Zyloprim) 100 mg BID PO Last administered on 12/27/18 20:49; Admin Dose 100 MG; Start 12/25/18 at 21:00 Piperacillin Sod/ Tazobactam Sod 50 ml @ 100 mls/hr Q8 IVPB Last administered on 12/28/18 05:37; Admin Dose 100 MLS/HR; Start 12/26/18 at 10:00 Vancomycin HCl (Vanco Iv Per Pharmacy) VANCOMYCIN PER PHARMACY PER PROTOCOL XX ; Start 12/26/18 at 20:00 Sodium Chloride 1,000 ml @ 75 mls/hr [id number] IV Last administered on 12/28/18at 02:44; Admin Dose 75 MLS/HR; Start 12/27/18 at 15:00 Pantoprazole (Protonix Iv) 40 mg DAILY@0600 IV Last administered on 12/28/18at 05:37; Admin Dose 40 MG; Start 12/28/18 at 06:00 Albuterol/ Ipratropium (Duoneb) 3 ml Q4H RESP THERAPY PRN HHN SHORTNESS OF BREATH; Start 12/28/18 at 02:30 Heparin Sodium (Porcine) (Heparin (5000 Units/1ml)) 5,000 unit BID SC ; Start 12/28/18 at 21:00 EVIE PALMER MD Dec 28, 2018 10:15
--- NOTE | 2018-12-28 10:36 | CONS ---
Assessment/Plan Assessment/Plan Hospital Course 33 yo M with Hx of epilepsy who presents for evaluation of breakthrough seizures... for which neurology is consulted. ? precipitated by medication noncompliance..? CTH is without acute intracranial pathology. Initial CXR was unremarkable; followup imaging in the context of fevers suggest stefano of pneumonia BCx + Depakote level was subtherapeutic on presentation... P: Continue Depakote as ordered for now; surveillance levels daily Ativan IV PRN seizure > 5 min or for cluster PT/OT as necessary Continued medical management and supportive care per primary Will follow clinically Consultation Date/Type/Reason Admit Date/Time Dec 23, 2018 at 21:54 Type of Consult Neurology Reason for Consultation seizure Requesting Provider: LEOBARDO SEPULVEDA Date/Time of Note DATE: 12/28/18 TIME: 10:36 24 HR Interval Summary Free Text/Dictation Continues acute care Exam Vital Signs Vitals Vital Signs Date Temp Pulse Resp B/P (MAP) Pulse Ox O2 O2 Flow FiO2 Time Delivery Rate 12/28/18 98.0 67 18 128/73 94 Nasal 07:41 (91) Cannula Intake and Output 12/27/18 12/27/18 12/28/18 1515:00 23:00 07:00 IntakeIntake Total 1135 ml 1050 ml 1275 ml OutputOutput Total 600 ml BalanceBalance 535 ml 1050 ml 1275 ml Exam PE: Gen Appearance: No Apparent Distress HEENT: Normocephalic Cardiovascular: Regular rate Lungs: Clear bilaterally Abdomen: Soft Extremities: Dry NE: The patient was alert and oriented. Language was normal. Fund of knowledge was normal. Judgment was poor. Pupils were equal and reactive to light. There was no afferent pupillary defect. Visual ware were normal. Funduscopic examination was limited. Extra-ocular movements were full. Ptosis was absent. There was no nystagmus. Facial sensation was normal. Face was symmetric with normal strength. Hearing was intact. Palate movements were normal. Neck strength was normal. There was normal tongue bulk and speed of movement. Tone was normal. Muscle bulk was normal. I did not see fasciculations. Arms and legs were strong. Vibration sensation was normal. Temperature and pinprick sensation was normal. Rapid alternating movements were normal. There was no dysmetria. There was no intention tremor. Gait was deferred due to bedrest. Arm and leg reflexes were 2+ and symmetric. James's sign was absent. Plantar responses were flexor. ASUNCION KINGSLEY Dec 28, 2018 10:36 PADMINI STODDARD NP Dec 28, 2018 14:11
[2018-12-28] MEDS ORDERED: VANCOMYCIN HCL 1.5 GM in SOD CHLORIDE 0.9% 250 ML IVPB SCH (12:30)
[2018-12-28 14:23] VITALS: BP 160/95; PULSE 65; RESP 18
--- NOTE | 2018-12-28 17:08 | CONS ---
Assessment/Plan Assessment/Plan Hospital Course (Demo Recall) Patient is alert no fevers overnight complaining of left upper extremity swelling and scrotal pain blood culture on admission grew strep pyogenous, repeat blood cultures preliminary Negative day #1 T-max yesterday 102.6 T-current 98.6. BUN 37 creatinine 3.04 WBC 5.3 platelets 36 bands 50 Urinalysis was negative for nitrite leukocyte Estrace Chest x-ray revealed bibasilar pneumonia. Brain MRI revealed no acute intracranial pathology. Renal ultrasound revealed no evidence of obstructive uropathy calculus or mass. Liver ultrasound revealed no gallstones or sludge no dilatation of biliary duct focal area of gallbladder wall thickening with pericholecystic fluid in the mid body of the gallbladder which is nonspecific. Please see full report Antimicrobials: Patient is on IV Vanco and Zosyn Physical examination: Well-nourished well-developed middle-aged man who is awake in no distress. Head atraumatic normocephalic neck is supple chest rise symmetrical breath sounds diminished at bases. Heart: S1-S2. Abdomen soft bowel sounds present. Extremities with left upper extremity edema Assessment: 1. Severe sepsis on admission 2. Bilateral pneumonia possibly aspiration 3. Strep bacteremia rule out endocarditis 4. Acute renal failure 5. Left upper extremity edema likely from infiltration of the iv 6. Progressive thrombocytopenia 7. Epilepsy status post seizure 8. History of IV drug use Plan: Change antibiotics to clindamycin and Rocephin given progressive thro mbocytopenia. Keep left upper extremity elevated. Consider 2D echo, follow neurology and renal recommendations Consultation Date/Type/Reason Admit Date/Time Dec 23, 2018 at 21:54 Initial Consult Date 01/02/19 Reason for Consultation id Requesting Provider: LEOBARDO SEPULVEDA Date/Time of Note DATE: 12/28/18 TIME: 17:07 Exam/Review of Systems Exam Vitals Vital Signs Date Temp Pulse Resp B/P (MAP) Pulse Ox O2 O2 Flow FiO2 Time Delivery Rate 12/28/18 98.6 65 18 160/95 96 Room Air 14:23 (116) Intake and Output 12/27/18 12/27/18 12/28/18 1515:00 23:00 07:00 IntakeIntake Total 1135 ml 1050 ml 1275 ml OutputOutput Total 600 ml BalanceBalance 535 ml 1050 ml 1275 ml Results Result Diagram: 12/28/18 0447 12/28/18 0447 Results 24hrs Laboratory Tests Test 12/28/18 04:47 White Blood Count 5.3 Red Blood Count 3.62 L Hemoglobin 11.2 L Hematocrit 30.7 L Mean Corpuscular Volume 84.8 Mean Corpuscular Hemoglobin 30.9 Mean Corpuscular Hemoglobin Concent 36.5 Red Cell Distribution Width 11.9 Platelet Count 36 L Mean Platelet Volume 11.5 H Immature Granulocytes % 0.400 Neutrophils % Segmented Neutrophils % (Manual) 35 L Band Neutrophils % (Manual) 50 H Lymphocytes % Lymphocytes % (Manual) 8 L Reactive Lymphocytes % (Manual) 7 H Monocytes % Eosinophils % Basophils % Nucleated Red Blood Cells % 0.0 Immature Granulocytes # 0.020 Neutrophils # Neutrophils # (Manual) 2.0 Band Neutrophils # 2.6 H Lymphocytes (Manual) 0.4 L Lymphocytes # Reactive Lymphocytes # 0.3 H Monocytes # Eosinophils # Basophils # Nucleated Red Blood Cells # Platelet Estimate SIG DECREASED Polychromasia 1+ Poikilocytosis 1+ Sodium Level 138 Potassium Level 3.9 Chloride Level 107 Carbon Dioxide Level 23 Anion Gap 8 Blood Urea Nitrogen 37 #H Creatinine 3.04 #H Est Glomerular Filtrat Rate mL/min 24 L Glucose Level 97 Calcium Level 8.2 L Magnesium Level 2.3 Creatine Kinase 03835 H Random Vancomycin Level 5.8 Valproic Acid (Depakene) Level 92 Medications Medication Current Medications Lorazepam (Ativan) 2 mg Q2H PRN IV SEIZURES; Start 12/23/18 at 22:00 IV Flush (NS 3 ml) 3 ml PER PROTOCOL IV ; Start 12/23/18 at 22:00 Bisacodyl (Dulcolax) 5 mg DAILY PRN PO .CONSTIPATION; Start 12/23/18 at 22:00 Docusate Sodium (Colace) 100 mg Q12H PO Last administered on 12/27/18at 21:30; Admin Dose 100 MG; Start 12/24/18 at 22:00 Ondansetron HCl (Zofran Inj) 4 mg Q6H PRN IV NAUSEA AND/OR VOMITING; Start 12/24/18 at 12:30 Acetaminophen (Tylenol Tab) 650 mg Q6H PRN PO MILD PAIN(1-3)OR ELEVATED TEMP Last administered on 12/27/18at 21:51; Admin Dose 650 MG; Start 12/24/18 at 12:30 Valproate Sodium 1000 mg/Sodium Chloride 110 ml @ 110 mls/hr BID IVPB Last administered on 12/28/18 08:29; Admin Dose 110 MLS/HR; Start 12/24/18 at 21:00 Allopurinol (Zyloprim) 100 mg BID PO Last administered on 12/27/18at 20:49; Admin Dose 100 MG; Start 12/25/18 at 21:00 Piperacillin Sod/ Tazobactam Sod 50 ml @ 100 mls/hr Q8 IVPB Last administered on 12/28/18at 15:33; Admin Dose 100 MLS/HR; Start 12/26/18 at 10:00 Vancomycin HCl (Vanco Iv Per Pharmacy) VANCOMYCIN PER PHARMACY PER PROTOCOL XX ; Start 12/26/18 at 20:00 Sodium Chloride 1,000 ml @ 75 mls/hr [id number] IV Last administered on 12/28/18at 02:44; Admin Dose 75 MLS/HR; Start 12/27/18 at 15:00 Pantoprazole (Protonix Iv) 40 mg DAILY@0600 IV Last administered on 12/28/18at 05:37; Admin Dose 40 MG; Start 12/28/18 at 06:00 Albuterol/ Ipratropium (Duoneb) 3 ml Q4H RESP THERAPY PRN HHN SHORTNESS OF BREATH; Start 12/28/18 at 02:30 Heparin Sodium (Porcine) (Heparin (5000 Units/1ml)) 5,000 unit BID SC ; Start 12/28/18 at 21:00; Status Future Hold XIOMARA MURRAY NP Dec 28, 2018 17:08
[2018-12-28] MEDS: CEFTRIAXONE 2 GM/50 ML (PMX) 50 ML IVPB SCH (18:22)
[2018-12-28] MEDS: ONDANSETRON 4 MG INJ IV PRN (18:27)
[2018-12-28] MEDS: ACETAMINOPHEN 325 MG TAB PO PRN (18:28)
[2018-12-28 20:02] VITALS: BP 125/79; PULSE 70; RESP 18
[2018-12-28] MEDS ORDERED: HEPARIN 5,000 UNIT/1 ML VIAL SC SCH (21:00)
[2018-12-28] MEDS: CLINDAMYCIN 600 MG/D5W (PMX) 50 ML IVPB SCH (21:22)
[2018-12-29] MEDS: SOD CHLORIDE 0.9% 1,000 ML IV SCH ×3 (00:40→22:45)
[2018-12-29 02:00] VITALS: BP 133/72; PULSE 53; RESP 18
[2018-12-29] MEDS: ACETAMINOPHEN 325 MG TAB PO PRN ×2 (02:20→08:41)
[2018-12-29] MEDS: PANTOPRAZOLE 40 MG INJ IV SCH (06:11)
[2018-12-29] MEDS: CLINDAMYCIN 600 MG/D5W (PMX) 50 ML IVPB SCH ×3 (06:11→22:42)
[2018-12-29 08:21] VITALS: BP 124/80; PULSE 84; RESP 18
[2018-12-29] MEDS: VALPROATE INJ 1,000 MG in SOD CHLORIDE 0.9% 100 ML IVPB SCH ×2 (08:30→20:55)
[2018-12-29] MEDS: ALLOPURINOL 100 MG TAB PO SCH ×2 (08:31→20:57)
--- NOTE | 2018-12-29 09:53 | PN ---
Date/Time of Note Date/Time of Note DATE: 12/29/18 TIME: 09:50 Assessment/Plan VTE Prophylaxis Risk score (from Ns)>0 risk: 1 SCD applied (from Ns): Yes SCD contraindicated: low risk/ambulating Pharmacological prophylaxis: NA/contraindicated Pharm contraindication: low risk/ambulating Lines/Catheters IV Catheter Type (from [facility]): Mid Line Assessment/Plan Hospital Course S: continues to improve, wants a massage, told him it was contraindicated with severe rhabdo O: General: alert, oriented, looks better HEENT: NC/ AT. PERRL. EOM intact Neck: supple CVS: S1, S2, RRR. no murmurs. no pain on chest wall palpation Lungs: diminished ++, no wheezing Abd: soft, nontender, +BS Ext: moving all extremities skin: no rashes Assessment and plan: This is a 33-year-old male With known history of seizure disorder was brought to the emergency room via ambulance after being found on the floor was having continuous seizure activity in the emergency room prior to admission. He is currently managed as follows: #1 acute encephalopathy: improved, patient now back to baseline #2 seizure disorder with breakthrough seizures: -neurology managing, continues on daily depakote shots with surveillance daily -CT head was without acute pathology, -Brain MRI was also negative for acute pathology -EEG showed slowing of background suggestive of diffuse cortical dysfunction of nonspecific etiology -Appreciate neurology reviews recommendations -Patient recommended to continue on depakote for now 3. Sepsis (persistent ) with Strep pyogenes bacteremia and aspiration pneumonia -Continue Vancomycin and Zosyn, source is likely from aspiration pneumonia -Order 2D echo to ensure no vegetations, repeat blood cultures -ID managing abx 4. Severe Rhabdomyolysis: -continue IV hydration, CK levels improved 5. NIKITA with Metabolic acidosis: Likely secondary #4, creatinine levels beginning to trend down -renal USS shows medicorenal disease but no obstruction 6. Hyperuricemia -allopurinol per renal 7. Transaminitis -stable indicies, but not normalized -hepatitis screen negative, -no cirrhosis on USS 8. Substance abuse -patient does endorse IV drug use about a month ago, but he was somewhat confused at the time Dispo: continue IVF and abx, plan to d/c when ck levels preferably 2000 or less. NO MASSAGES Further treatment strategy will be implemented as per the clinical course. Result Diagram: 12/29/18 0433 12/29/18 0434 Results 24hrs Laboratory Tests Test 12/29/18 04:33 12/29/18 04:34 White Blood Count 6.4 # Red Blood Count 4.00 L Hemoglobin 12.2 L Hematocrit 34.8 L Mean Corpuscular Volume 87.0 Mean Corpuscular Hemoglobin 30.5 Mean Corpuscular Hemoglobin Concent 35.1 Red Cell Distribution Width 12.6 Platelet Count 40 L Mean Platelet Volume 12.1 H Immature Granulocytes % 0.600 H Neutrophils % 59.4 Lymphocytes % 25.1 Monocytes % 13.7 H Eosinophils % 0.9 Basophils % 0.3 Nucleated Red Blood Cells % 0.0 Immature Granulocytes # 0.040 H Neutrophils # 3.8 Lymphocytes # 1.6 Monocytes # 0.9 Eosinophils # 0.1 Basophils # 0.0 Nucleated Red Blood Cells # 0.0 Sodium Level 139 Potassium Level 3.5 Chloride Level 110 Carbon Dioxide Level 22 Anion Gap 7 Blood Urea Nitrogen 25 #H Creatinine 2.39 H Est Glomerular Filtrat Rate mL/min 31 L Glucose Level 84 Calcium Level 8.1 L Creatine Kinase 5772 #H Valproic Acid (Depakene) Level 83 Exam/Review of Systems Exam Vitals Vital Signs Date Temp Pulse Resp B/P (MAP) Pulse Ox O2 O2 Flow FiO2 Time Delivery Rate 12/29/18 98.1 84 18 124/80 93 Room Air 08:21 (95) Intake and Output 12/28/18 12/28/18 12/29/18 1515:00 23:00 07:00 IntakeIntake Total 590 ml 850 ml 835 ml BalanceBalance 590 ml 850 ml 835 ml Results Results 24hrs Laboratory Tests Test 12/29/18 04:33 12/29/18 04:34 White Blood Count 6.4 # Red Blood Count 4.00 L Hemoglobin 12.2 L Hematocrit 34.8 L Mean Corpuscular Volume 87.0 Mean Corpuscular Hemoglobin 30.5 Mean Corpuscular Hemoglobin Concent 35.1 Red Cell Distribution Width 12.6 Platelet Count 40 L Mean Platelet Volume 12.1 H Immature Granulocytes % 0.600 H Neutrophils % 59.4 Lymphocytes % 25.1 Monocytes % 13.7 H Eosinophils % 0.9 Basophils % 0.3 Nucleated Red Blood Cells % 0.0 Immature Granulocytes # 0.040 H Neutrophils # 3.8 Lymphocytes # 1.6 Monocytes # 0.9 Eosinophils # 0.1 Basophils # 0.0 Nucleated Red Blood Cells # 0.0 Sodium Level 139 Potassium Level 3.5 Chloride Level 110 Carbon Dioxide Level 22 Anion Gap 7 Blood Urea Nitrogen 25 #H Creatinine 2.39 H Est Glomerular Filtrat Rate mL/min 31 L Glucose Level 84 Calcium Level 8.1 L Creatine Kinase 5772 #H Valproic Acid (Depakene) Level 83 Medications Medication Current Medications Lorazepam (Ativan) 2 mg Q2H PRN IV SEIZURES; Start 12/23/18 at 22:00 IV Flush (NS 3 ml) 3 ml PER PROTOCOL IV ; Start 12/23/18 at 22:00 Bisacodyl (Dulcolax) 5 mg DAILY PRN PO .CONSTIPATION; Start 12/23/18 at 22:00 Docusate Sodium (Colace) 100 mg Q12H PO Last administered on 12/27/18 21:30; Admin Dose 100 MG; Start 12/24/18 at 22:00 Ondansetron HCl (Zofran Inj) 4 mg Q6H PRN IV NAUSEA AND/OR VOMITING Last administered on 12/28/18 18:27; Admin Dose 4 MG; Start 12/24/18 at 12:30 Acetaminophen (Tylenol Tab) 650 mg Q6H PRN PO MILD PAIN(1-3)OR ELEVATED TEMP Last administered on 12/29/18 08:41; Admin Dose 650 MG; Start 12/24/18 at 12:30 Valproate Sodium 1000 mg/Sodium Chloride 110 ml @ 110 mls/hr BID IVPB Last administered on 12/29/18 08:30; Admin Dose 110 MLS/HR; Start 12/24/18 at 21:00 Allopurinol (Zyloprim) 100 mg BID PO Last administered on 12/29/18 08:31; Admin Dose 100 MG; Start 12/25/18 at 21:00 Sodium Chloride 1,000 ml @ 75 mls/hr [id number] IV Last administered on 12/29/18 00:40; Admin Dose 75 MLS/HR; Start 12/27/18 at 15:00 Pantoprazole (Protonix Iv) 40 mg DAILY@0600 IV Last administered on 12/29/18 06:11; Admin Dose 40 MG; Start 12/28/18 at 06:00 Albuterol/ Ipratropium (Duoneb) 3 ml Q4H RESP THERAPY PRN HHN SHORTNESS OF BREATH; Start 12/28/18 at 02:30 Heparin Sodium (Porcine) (Heparin (5000 Units/1ml)) 5,000 unit BID SC ; Start 12/28/18 at 21:00; Status Hold Clindamycin HCl/ Dextrose 50 ml @ 50 mls/hr Q8 IVPB Last administered on 12/29/18at 06:11; Admin Dose 50 MLS/HR; Start 12/28/18 at 22:00 Ceftriaxone Sodium 50 ml @ 100 mls/hr Q24H IVPB Last administered on 12/28/18at 18:22; Admin Dose 100 MLS/HR; Start 12/28/18 at 18:30 LEOBARDO SEPULVEDA Dec 29, 2018 09:53
--- NOTE | 2018-12-29 09:58 | CONS ---
Assessment/Plan Assessment/Plan Assessment/Plan (Daily) 1, acute kidney injury due to ATN from sepsis and acute rhabdomyolysis 2. acute rhabdomyolysis due to seizures 3. acute encephalopathy from breakthrough seizures 4. H/o seizure disorder 5. Sepsis due to Streptococcus pyogenes bacteremia Plan: BUN/Cr improved to 25/2.39, HCo3 21, CK total improving to 5772, other electrolyte sstable IVF NS 75 cchr Renal US showed No evidence of obstructive uropathy, calculus or mass. Echogenic kidneys consistent with renal medical disease. IV abx as per ID for sepsis, Renally dose all abx and monitor all electrolytes will follow up Consultation Date/Type/Reason Admit Date/Time Dec 23, 2018 at 21:54 Initial Consult Date 01/02/19 Type of Consult NEPHROLOGY Requesting Provider: LEOBARDO SEPULVEDA Date/Time of Note DATE: 12/29/18 TIME: 09:58 Exam/Review of Systems Exam Vitals Vital Signs Date Temp Pulse Resp B/P (MAP) Pulse Ox O2 O2 Flow FiO2 Time Delivery Rate 12/29/18 98.1 84 18 124/80 93 Room Air 08:21 (95) Intake and Output 12/28/18 12/28/18 12/29/18 1515:00 23:00 07:00 IntakeIntake Total 590 ml 850 ml 835 ml BalanceBalance 590 ml 850 ml 835 ml Exam Constitutional: No alert, No distress Psych: other (Unable to assess) Head: normocephalic Eyes: PERRL Respiratory: clear to auscultation Cardiovascular: regular rate and rhythm Gastrointestinal: soft, non-tender, bowel sounds Extremities: No edema Neurological: non focal Results Result Diagram: 12/29/18 0433 12/29/18 0434 Results 24hrs Laboratory Tests Test 12/29/18 04:33 12/29/18 04:34 White Blood Count 6.4 # Red Blood Count 4.00 L Hemoglobin 12.2 L Hematocrit 34.8 L Mean Corpuscular Volume 87.0 Mean Corpuscular Hemoglobin 30.5 Mean Corpuscular Hemoglobin Concent 35.1 Red Cell Distribution Width 12.6 Platelet Count 40 L Mean Platelet Volume 12.1 H Immature Granulocytes % 0.600 H Neutrophils % 59.4 Lymphocytes % 25.1 Monocytes % 13.7 H Eosinophils % 0.9 Basophils % 0.3 Nucleated Red Blood Cells % 0.0 Immature Granulocytes # 0.040 H Neutrophils # 3.8 Lymphocytes # 1.6 Monocytes # 0.9 Eosinophils # 0.1 Basophils # 0.0 Nucleated Red Blood Cells # 0.0 Sodium Level 139 Potassium Level 3.5 Chloride Level 110 Carbon Dioxide Level 22 Anion Gap 7 Blood Urea Nitrogen 25 #H Creatinine 2.39 H Est Glomerular Filtrat Rate mL/min 31 L Glucose Level 84 Calcium Level 8.1 L Creatine Kinase 5772 #H Valproic Acid (Depakene) Level 83 Medications Medication Current Medications Lorazepam (Ativan) 2 mg Q2H PRN IV SEIZURES; Start 12/23/18 at 22:00 IV Flush (NS 3 ml) 3 ml PER PROTOCOL IV ; Start 12/23/18 at 22:00 Bisacodyl (Dulcolax) 5 mg DAILY PRN PO .CONSTIPATION; Start 12/23/18 at 22:00 Docusate Sodium (Colace) 100 mg Q12H PO Last administered on 12/27/18 21:30; Admin Dose 100 MG; Start 12/24/18 at 22:00 Ondansetron HCl (Zofran Inj) 4 mg Q6H PRN IV NAUSEA AND/OR VOMITING Last administered on 12/28/18 18:27; Admin Dose 4 MG; Start 12/24/18 at 12:30 Acetaminophen (Tylenol Tab) 650 mg Q6H PRN PO MILD PAIN(1-3)OR ELEVATED TEMP Last administered on 12/29/18 08:41; Admin Dose 650 MG; Start 12/24/18 at 12:30 Valproate Sodium 1000 mg/Sodium Chloride 110 ml @ 110 mls/hr BID IVPB Last administered on 12/29/18 08:30; Admin Dose 110 MLS/HR; Start 12/24/18 at 21:00 Allopurinol (Zyloprim) 100 mg BID PO Last administered on 12/29/18 08:31; Admin Dose 100 MG; Start 12/25/18 at 21:00 Sodium Chloride 1,000 ml @ 75 mls/hr [id number] IV Last administered on 12/29/18 00:40; Admin Dose 75 MLS/HR; Start 12/27/18 at 15:00 Pantoprazole (Protonix Iv) 40 mg DAILY@0600 IV Last administered on 4/10/19at 06:11; Admin Dose 40 MG; Start 12/28/18 at 06:00 Albuterol/ Ipratropium (Duoneb) 3 ml Q4H RESP THERAPY PRN HHN SHORTNESS OF BREATH; Start 12/28/18 at 02:30 Heparin Sodium (Porcine) (Heparin (5000 Units/1ml)) 5,000 unit BID SC ; Start 12/28/18 at 21:00; Status Hold Clindamycin HCl/ Dextrose 50 ml @ 50 mls/hr Q8 IVPB Last administered on 12/29/18at 06:11; Admin Dose 50 MLS/HR; Start 12/28/18 at 22:00 Ceftriaxone Sodium 50 ml @ 100 mls/hr Q24H IVPB Last administered on 12/28/18at 18:22; Admin Dose 100 MLS/HR; Start 12/28/18 at 18:30 EVIE PALMER MD Dec 29, 2018 09:58
[2018-12-29] MEDS: DOCUSATE SODIUM 100 MG CAP PO SCH ×2 (10:00→22:00)
--- NOTE | 2018-12-29 10:43 | RADRPT ---
Echocardiogram Report Patient Name: RANDOLPH COLVINatient ID: [id number] : 1985 (33y 2m)Study Date: 12/28/2018 10:41:36 AM Gender: MAccession #: [id number] Tech: Surya Delacruz [facility] Location: 2[address] Ref.Physician: LEOBARDO SEPULVEDA Height(Cm): BSA: Weight(Kg): Quality: AdequateAccount #: Procedures: Echocardiographic Report: Transthoracic echocardiogram with complete 2D, M-Mode, and doppler examination. Indications: R/O Vegetation, Bacteremia. Measurements: 2D/M Mode Doppler Measurement Value Normal Range Measurement Value Normal Range LVIDd 2D 5.1 [ 4.2 - 5.8 ] cm AV Peak Daniel 1.5 [ 100.0 - 170.0 ] cm/sec LVIDs 2D 3.3 [ 2.5 - 4.0 ] cm AV Peak PG 8.0 [ 2.0 - 9.0 ] mmHg LVPWd 2D 1.1 [ 0.6 - 1.0 ] cm LVOT Peak Daniel 1.3 [ 70.0 - 110.0 ] cm/sec IVSd 2D 1.1 [ 0.6 - 1.0 ] cm LVOT Peak PG 7.0 [ 2.0 - 6.0 ] mmHg IVS/LVPW 2D 1.0 ratio MV E Peak Daniel 1.1 [ 60.0 - 130.0 ] cm/sec AoR Diam 2D 3.2 [ 2.6 - 3.4 ] cm MV A Peak Daniel 0.7 [ 100.0 - 120.0 ] cm/sec LA/Ao 2D 1 ratio MV E/A 1.5 [ 0.8 - 1.5 ] ratio EF 2D 65.7 [ 52.0 - 72.0 ] percent MV Decel Time 208 [ 104 - 258 ] msec LA Dimen 2D 4.0 [ 3.0 - 4.0 ] cm Lat E` Daniel 0.2 [ 10.0 - 15.0 ] cm/sec MV E/A 1.5 [ 0.8 - 1.5 ] ratio TR Peak Daniel 3.2 [ 100.0 - 280.0 ] cm/sec TR Peak PG 41.0 mmHg RVSP 51.0 [ 10.0 - 36.0 ] mmHg Findings: Left Ventricle: Normal left ventricular systolic function. Normal left ventricular cavity size. Left ventricular wall thickness upper limits of normal. Ejection fraction is visually estimated at 55 %. Tissue Doppler/Mitral Doppler indices are consistent with pseudonormalization with mildly elevated left atrial pressure (Stage II diastolic dysfunction). Right Ventricle: Normal right ventricular size. Normal right ventricular systolic function. Left Atrium: The left atrium is normal in size. Right Atrium: The right atrium is normal in size. Mitral Valve: Mitral valve leaflets appear mildly thickened. Mild mitral annular calcification. Trace mitral regurgitation. Aortic Valve: No hemodynamically significant aortic stenosis by doppler. Aortic cusps appear mildly calcified. No evidence of endocarditis. Tricuspid Valve: Normal appearance of the tricuspid valve. Estimated peak PA systolic pressure 51 mmHg. There is mild tricuspid regurgitation. No evidence of endocarditis. Pulmonic Valve: Pulmonic valve not well visualized. Pericardium: Normal pericardium with no significant pericardial effusion. Aorta: Normal aortic root. IVC: Normal size and normal respiratory collapse consistent with normal right atrial pressure. Conclusions: Normal left ventricular systolic function. Normal left ventricular cavity size. Left ventricular wall thickness upper limits of normal. Ejection fraction is visually estimated at 55 %. Tissue Doppler/Mitral Doppler indices are consistent with pseudonormalization with mildly elevated left atrial pressure (Stage II diastolic dysfunction). Mitral valve leaflets appear mildly thickened. Mild mitral annular calcification. Trace mitral regurgitation. No hemodynamically significant aortic stenosis by doppler. Aortic cusps appear mildly calcified. No evidence of endocarditis. Normal appearance of the tricuspid valve. Estimated peak PA systolic pressure 51 mmHg. There is mild tricuspid regurgitation. No evidence of endocarditis. Electronically Signed By: Catalino Armendariz 2018-12-29 10:42:07 PDT
--- NOTE | 2018-12-29 11:28 | CONS ---
Assessment/Plan Assessment/Plan Hospital Course 33 yo M with Hx of epilepsy who presents for evaluation of breakthrough seizures... for which neurology is consulted. ? precipitated by medication noncompliance..? CTH is without acute intracranial pathology. Initial CXR was unremarkable; followup imaging in the context of fevers suggest stefano of pneumonia BCx + Depakote level was subtherapeutic on presentation... P: Continue Depakote as ordered for now; surveillance levels daily; can consider transitioning back to [facility] as an outpatient Ativan IV PRN seizure > 5 min or for cluster PT/OT as necessary Continued medical management and supportive care per primary Will follow clinically Consultation Date/Type/Reason Admit Date/Time Dec 23, 2018 at 21:54 Type of Consult Neurology Reason for Consultation seizure Requesting Provider: LEOBARDO SEPULVEDA Date/Time of Note DATE: 12/29/18 TIME: 11:27 24 HR Interval Summary Free Text/Dictation Continues acute care Exam Vital Signs Vitals Vital Signs Date Temp Pulse Resp B/P (MAP) Pulse Ox O2 O2 Flow FiO2 Time Delivery Rate 12/29/18 98.1 84 18 124/80 93 Room Air 08:21 (95) Intake and Output 12/28/18 12/28/18 12/29/18 1515:00 23:00 07:00 IntakeIntake Total 590 ml 850 ml 835 ml BalanceBalance 590 ml 850 ml 835 ml ASUNCION KINGSLEY Dec 29, 2018 11:28
[2018-12-29] MEDS: NYSTATIN SUSP 5 ML CUP PO SCH ×3 (12:53→20:56)
[2018-12-29] MEDS: CHLORHEXIDINE GLUCONATE 15 ML UD CUP MT SCH ×2 (13:48→20:56)
[2018-12-29 14:25] VITALS: BP 125/64; PULSE 72; RESP 18
--- NOTE | 2018-12-29 15:09 | CONS ---
Assessment/Plan Assessment/Plan Hospital Course (Demo Recall) No acute changes patient is alert ambulating in the room no fevers overnight. WBC 6.4 platelets 40 BUN 25 creatinine 2.39 Antimicrobials: Clindamycin, Rocephin Microbiology: Blood culture on admission grew strep pyogenes, repeat blood culture negative Left upper extremity ultrasound revealed thrombosis of the left basilic vein Chest x-ray revealed bibasilar pneumonia. Brain MRI revealed no acute intracranial pathology. Renal ultrasound revealed no evidence of obstructive uropathy calculus or mass. Liver ultrasound revealed no gallstones or sludge no dilatation of biliary duct focal area of gallbladder wall thickening with pericholecystic fluid in the mid body of the gallbladder which is nonspecific. Please see full report Physical examination: Well-nourished well-developed middle-aged man who is awake in no distress. Head atraumatic normocephalic neck is supple chest rise symmetrical breath sounds diminished at bases. Heart: S1-S2. Abdomen soft bowel sounds present. Extremities with left upper extremity edema Assessment: 1. Severe sepsis on admission 2. Bilateral pneumonia possibly aspiration 3. Strep bacteremia, rule out endocarditis 4. Acute renal failure 5. Left upper extremity edema/basilic vein thrombosis 6. Progressive thrombocytopenia 7. Epilepsy status post seizure 8. History of IV drug use Plan: Stable, repeat blood cultures negative, no evidence for endocarditis per 2D echo, continue antibiotics, neurology and renal recommendations Consultation Date/Type/Reason Admit Date/Time Dec 23, 2018 at 21:54 Initial Consult Date 01/02/19 Type of Consult id Requesting Provider: LEOBARDO SEPULVEDA Date/Time of Note DATE: 12/29/18 TIME: 15:06 Exam/Review of Systems Exam Vitals Vital Signs Date Temp Pulse Resp B/P (MAP) Pulse Ox O2 O2 Flow FiO2 Time Delivery Rate 12/29/18 98.1 84 18 124/80 93 Room Air 08:21 (95) Intake and Output 12/28/18 12/28/18 12/29/18 1515:00 23:00 07:00 IntakeIntake Total 590 ml 850 ml 835 ml BalanceBalance 590 ml 850 ml 835 ml Results Result Diagram: 12/29/18 0433 12/29/18 0434 Results 24hrs Laboratory Tests Test 12/29/18 04:33 12/29/18 04:34 White Blood Count 6.4 # Red Blood Count 4.00 L Hemoglobin 12.2 L Hematocrit 34.8 L Mean Corpuscular Volume 87.0 Mean Corpuscular Hemoglobin 30.5 Mean Corpuscular Hemoglobin Concent 35.1 Red Cell Distribution Width 12.6 Platelet Count 40 L Mean Platelet Volume 12.1 H Immature Granulocytes % 0.600 H Neutrophils % 59.4 Lymphocytes % 25.1 Monocytes % 13.7 H Eosinophils % 0.9 Basophils % 0.3 Nucleated Red Blood Cells % 0.0 Immature Granulocytes # 0.040 H Neutrophils # 3.8 Lymphocytes # 1.6 Monocytes # 0.9 Eosinophils # 0.1 Basophils # 0.0 Nucleated Red Blood Cells # 0.0 Sodium Level 139 Potassium Level 3.5 Chloride Level 110 Carbon Dioxide Level 22 Anion Gap 7 Blood Urea Nitrogen 25 #H Creatinine 2.39 H Est Glomerular Filtrat Rate mL/min 31 L Glucose Level 84 Calcium Level 8.1 L Creatine Kinase 5772 #H Valproic Acid (Depakene) Level 83 Medications Medication Current Medications Lorazepam (Ativan) 2 mg Q2H PRN IV SEIZURES; Start 12/23/18 at 22:00 IV Flush (NS 3 ml) 3 ml PER PROTOCOL IV ; Start 12/23/18 at 22:00 Bisacodyl (Dulcolax) 5 mg DAILY PRN PO .CONSTIPATION; Start 12/23/18 at 22:00 Docusate Sodium (Colace) 100 mg Q12H PO Last administered on 12/27/18 21:30; Admin Dose 100 MG; Start 12/24/18 at 22:00 Ondansetron HCl (Zofran Inj) 4 mg Q6H PRN IV NAUSEA AND/OR VOMITING Last administered on 12/28/18 18:27; Admin Dose 4 MG; Start 12/24/18 at 12:30 Acetaminophen (Tylenol Tab) 650 mg Q6H PRN PO MILD PAIN(1-3)OR ELEVATED TEMP Last administered on 12/29/18 08:41; Admin Dose 650 MG; Start 12/24/18 at 12:30 Valproate Sodium 1000 mg/Sodium Chloride 110 ml @ 110 mls/hr BID IVPB Last administered on 12/29/18 08:30; Admin Dose 110 MLS/HR; Start 12/24/18 at 21:00 Allopurinol (Zyloprim) 100 mg BID PO Last administered on 12/29/18 08:31; Admin Dose 100 MG; Start 12/25/18 at 21:00 Sodium Chloride 1,000 ml @ 125 mls/hr Q8H IV Last administered on 12/29/18 00:40; Admin Dose 75 MLS/HR; Start 12/27/18 at 15:00 Pantoprazole (Protonix Iv) 40 mg DAILY@0600 IV Last administered on 12/29/18 06:11; Admin Dose 40 MG; Start 12/28/18 at 06:00 Albuterol/ Ipratropium (Duoneb) 3 ml Q4H RESP THERAPY PRN HHN SHORTNESS OF BREATH; Start 12/28/18 at 02:30 Heparin Sodium (Porcine) (Heparin (5000 Units/1ml)) 5,000 unit BID SC ; Start 12/28/18 at 21:00; Status Hold Clindamycin HCl/ Dextrose 50 ml @ 50 mls/hr Q8 IVPB Last administered on 12/29/18 13:49; Admin Dose 50 MLS/HR; Start 12/28/18 at 22:00 Ceftriaxone Sodium 50 ml @ 100 mls/hr Q24H IVPB Last administered on 12/28/18 18:22; Admin Dose 100 MLS/HR; Start 12/28/18 at 18:30 Chlorhexidine Gluconate (Peridex) 15 ml BID MT Last administered on 12/29/18 13:48; Admin Dose 15 ML; Start 12/29/18 at 12:30 Nystatin (Nystatin Susp) 5 ml QID PO Last administered on 12/29/18 12:53; Admin Dose 5 ML; Start 12/29/18 at 13:00 XIOMARA MURRAY NP Dec 29, 2018 15:09
[2018-12-29] MEDS: HYDROCODONE/APAP (5/325) TAB PO PRN (17:52)
[2018-12-29] MEDS: CEFTRIAXONE 2 GM/50 ML (PMX) 50 ML IVPB SCH (17:52)
[2018-12-29 20:00] VITALS: BP 117/79; PULSE 77; RESP 18
[2018-12-29] MEDS: ONDANSETRON 4 MG INJ IV PRN (21:07)
[2018-12-29] MEDS ORDERED: METOCLOPRAMIDE 10 MG INJ IV ONE (23:30)
[2018-12-30 02:00] VITALS: BP 124/86; PULSE 60; RESP 18
[2018-12-30] MEDS: HYDROCODONE/APAP (5/325) TAB PO PRN (02:50)
[2018-12-30] MEDS: SOD CHLORIDE 0.9% 1,000 ML IV SCH ×3 (04:20→22:45)
[2018-12-30] MEDS: PANTOPRAZOLE 40 MG INJ IV SCH (06:07)
[2018-12-30] MEDS: CLINDAMYCIN 600 MG/D5W (PMX) 50 ML IVPB SCH ×3 (06:08→22:10)
[2018-12-30] MEDS ORDERED: NYST1000 PO (09:16)
[2018-12-30] MEDS: CHLORHEXIDINE GLUCONATE 15 ML UD CUP MT SCH ×2 (09:24→20:36)
[2018-12-30] MEDS: NYSTATIN SUSP 5 ML CUP PO SCH ×4 (09:24→20:36)
[2018-12-30] MEDS: ALLOPURINOL 100 MG TAB PO SCH ×2 (09:24→20:34)
[2018-12-30] MEDS: VALPROATE INJ 1,000 MG in SOD CHLORIDE 0.9% 100 ML IVPB SCH (09:24)
[2018-12-30] MEDS: DOCUSATE SODIUM 100 MG CAP PO SCH ×2 (09:28→22:00)
[2018-12-30 09:31] VITALS: BP 159/86; PULSE 55; RESP 18
--- NOTE | 2018-12-30 11:42 | CONS ---
Assessment/Plan Assessment/Plan Hospital Course 33 yo M with Hx of epilepsy who presents for evaluation of breakthrough seizures... for which neurology is consulted. ? precipitated by medication noncompliance..? CTH is without acute intracranial pathology. Initial CXR was unremarkable; followup imaging in the context of fevers suggest stefano of pneumonia BCx + Depakote level was subtherapeutic on presentation... P: Continue Depakote as ordered for now; surveillance levels daily; can consider transitioning back to [facility] as an outpatient Ativan IV PRN seizure > 5 min or for cluster PT/OT as necessary Continued medical management and supportive care per primary Will follow clinically Consultation Date/Type/Reason Admit Date/Time Dec 23, 2018 at 21:54 Type of Consult Neurology Requesting Provider: LEOBARDO SEPULVEDA Date/Time of Note DATE: 12/30/18 TIME: 11:42 24 HR Interval Summary Free Text/Dictation Continues acute care. Exam Vital Signs Vitals Vital Signs Date Temp Pulse Resp B/P (MAP) Pulse Ox O2 O2 Flow FiO2 Time Delivery Rate 12/30/18 98.0 55 18 159/86 96 Room Air 09:31 (110) Intake and Output 12/29/18 12/29/18 12/30/18 1515:00 23:00 07:00 IntakeIntake Total 1790 ml 650 ml 975 ml BalanceBalance 1790 ml 650 ml 975 ml Exam PE: Gen Appearance: No Apparent Distress HEENT: Normocephalic Cardiovascular: Regular rate Lungs: Clear bilaterally Abdomen: Soft Extremities: Dry NE: The patient was alert and oriented.. Language was normal. Fund of knowledge was normal. Pupils were equal and reactive to light. There was no afferent pupillary defect. Visual ware were normal. Funduscopic examination was limited. Extra-ocular movements were full. Ptosis was absent. There was no nystagmus. Facial sensation was normal. Face was symmetric with normal strength. Hearing was intact. Palate movements were normal. Neck strength was normal. There was normal tongue bulk and speed of movement. Tone was normal. Muscle bulk was normal. I did not see fasciculations. Arms and legs were strong. Vibration sensation was normal. Temperature and pinprick sensation was normal. Rapid alternating movements were normal. There was no dysmetria. There was no intention tremor. Gait was deferred due to bedrest. Arm and leg reflexes were 2+ and symmetric. James's sign was absent. Plantar responses were flexor. PADMINI STODDARD NP Dec 30, 2018 11:42
[2018-12-30] MEDS: METOCLOPRAMIDE 10 MG INJ IV SCH ×2 (12:00→18:26)
--- NOTE | 2018-12-30 12:37 | CONS ---
Assessment/Plan Assessment/Plan Hospital Course (Demo Recall) No acute changes afebrile Antimicrobials: Clindamycin, Rocephin Microbiology: Blood culture on admission grew strep pyogenes, repeat blood culture negative Left upper extremity ultrasound revealed thrombosis of the left basilic vein Chest x-ray revealed bibasilar pneumonia. Brain MRI revealed no acute intracranial pathology. Renal ultrasound revealed no evidence of obstructive uropathy calculus or mass. Liver ultrasound revealed no gallstones or sludge no dilatation of biliary duct focal area of gallbladder wall thickening with pericholecystic fluid in the mid body of the gallbladder which is nonspecific. Please see full report Physical examination: Well-nourished well-developed middle-aged man who is awake in no distress. Head atraumatic normocephalic neck is supple chest rise symmetrical breath sounds diminished at bases. Heart: S1-S2. Abdomen soft bowel sounds present. Extremities with left upper extremity edema Assessment: 1. Severe sepsis on admission 2. Bilateral pneumonia possibly aspiration 3. Strep bacteremia, rule out endocarditis 4. Acute renal failure 5. Left upper extremity edema/basilic vein thrombosis 6. Progressive thrombocytopenia 7. Epilepsy status post seizure 8. History of IV drug use Plan: Remains stable, repeat blood cultures negative, no evidence for endocarditis per 2D echo, pt needs to complete 2 weeks abx to treat bacteremia, IV Rocephin or PO Zyvox Consultation Date/Type/Reason Admit Date/Time Dec 23, 2018 at 21:54 Initial Consult Date 01/02/19 Type of Consult id Requesting Provider: LEOBARDO SEPULEVDA Date/Time of Note DATE: 12/30/18 TIME: 12:35 Exam/Review of Systems Exam Vitals Vital Signs Date Temp Pulse Resp B/P (MAP) Pulse Ox O2 O2 Flow FiO2 Time Delivery Rate 12/30/18 98.0 55 18 159/86 96 Room Air 09:31 (110) Intake and Output 12/29/18 12/29/18 12/30/18 1515:00 23:00 07:00 IntakeIntake Total 1790 ml 650 ml 975 ml BalanceBalance 1790 ml 650 ml 975 ml Results Result Diagram: 12/30/18 0433 12/30/18 0433 Results 24hrs Laboratory Tests Test 12/30/18 04:33 White Blood Count 5.3 Red Blood Count 3.64 L Hemoglobin 11.2 L Hematocrit 32.1 L Mean Corpuscular Volume 88.2 Mean Corpuscular Hemoglobin 30.8 Mean Corpuscular Hemoglobin Concent 34.9 Red Cell Distribution Width 12.6 Platelet Count 43 L Mean Platelet Volume 11.9 H Immature Granulocytes % 1.700 H Neutrophils % 46.3 Lymphocytes % 31.3 Monocytes % 18.2 H Eosinophils % 1.9 Basophils % 0.6 Nucleated Red Blood Cells % 0.0 Immature Granulocytes # 0.090 H Neutrophils # 2.5 Lymphocytes # 1.7 Monocytes # 1.0 H Eosinophils # 0.1 Basophils # 0.0 Nucleated Red Blood Cells # 0.0 Sodium Level 138 Potassium Level 3.8 Chloride Level 106 Carbon Dioxide Level 24 Anion Gap 8 Blood Urea Nitrogen 16 # Creatinine 1.82 H Est Glomerular Filtrat Rate mL/min 43 L Glucose Level 98 Calcium Level 7.9 L Creatine Kinase 1344 #H Valproic Acid (Depakene) Level 68 Medications Medication Current Medications Lorazepam (Ativan) 2 mg Q2H PRN IV SEIZURES; Start 12/23/18 at 22:00 IV Flush (NS 3 ml) 3 ml PER PROTOCOL IV ; Start 12/23/18 at 22:00 Bisacodyl (Dulcolax) 5 mg DAILY PRN PO .CONSTIPATION; Start 12/23/18 at 22:00 Docusate Sodium (Colace) 100 mg Q12H PO Last administered on 12/27/18 21:30; Admin Dose 100 MG; Start 12/24/18 at 22:00 Ondansetron HCl (Zofran Inj) 4 mg Q6H PRN IV NAUSEA AND/OR VOMITING Last administered on 12/29/18 21:07; Admin Dose 4 MG; Start 12/24/18 at 12:30 Acetaminophen (Tylenol Tab) 650 mg Q6H PRN PO MILD PAIN(1-3)OR ELEVATED TEMP Last administered on 12/29/18 08:41; Admin Dose 650 MG; Start 12/24/18 at 12:30 Valproate Sodium 1000 mg/Sodium Chloride 110 ml @ 110 mls/hr BID IVPB Last administered on 12/30/18 09:24; Admin Dose 110 MLS/HR; Start 12/24/18 at 21:00 Allopurinol (Zyloprim) 100 mg BID PO Last administered on 4/11/19at 09:24; Admin Dose 100 MG; Start 12/25/18 at 21:00 Sodium Chloride 1,000 ml @ 125 mls/hr Q8H IV Last administered on 12/30/18 04:20; Admin Dose 125 MLS/HR; Start 12/27/18 at 15:00 Pantoprazole (Protonix Iv) 40 mg DAILY@0600 IV Last administered on 12/30/18 06:07; Admin Dose 40 MG; Start 12/28/18 at 06:00 Albuterol/ Ipratropium (Duoneb) 3 ml Q4H RESP THERAPY PRN HHN SHORTNESS OF BREATH; Start 12/28/18 at 02:30 Heparin Sodium (Porcine) (Heparin (5000 Units/1ml)) 5,000 unit BID SC ; Start 12/28/18 at 21:00; Status Hold Clindamycin HCl/ Dextrose 50 ml @ 50 mls/hr Q8 IVPB Last administered on 12/30/18 06:08; Admin Dose 50 MLS/HR; Start 12/28/18 at 22:00 Ceftriaxone Sodium 50 ml @ 100 mls/hr Q24H IVPB Last administered on 12/29/18at 17:52; Admin Dose 100 MLS/HR; Start 12/28/18 at 18:30 Chlorhexidine Gluconate (Peridex) 15 ml BID MT Last administered on 12/30/18 09:24; Admin Dose 15 ML; Start 12/29/18 at 12:30 Nystatin (Nystatin Susp) 5 ml QID PO Last administered on 12/30/18 09:24; Admin Dose 5 ML; Start 12/29/18 at 13:00 Acetaminophen/ Hydrocodone Bitart ([place] (5/325)) 1 tab Q6H PRN PO MODERATE PAIN LEVEL 4-6 Last administered on 12/30/18 02:50; Admin Dose 1 TAB; Start 12/29/18 at 17:30 Metoclopramide HCl (Reglan) 10 mg Q6 IV ; Start 12/30/18 at 12:00; Stop 12/31/18 at 00:01 XIOMARA MURRAY NP Dec 30, 2018 12:37
--- NOTE | 2018-12-30 12:58 | PN ---
Date/Time of Note Date/Time of Note DATE: 12/30/18 TIME: 12:48 Assessment/Plan VTE Prophylaxis Risk score (from Nsg)>0 risk: 3 SCD applied (from Nsg): Yes Pharmacological prophylaxis: heparin Lines/Catheters IV Catheter Type (from Nrsg): Mid Line Urinary Cath still in place: No Assessment/Plan Hospital Course Subjective : now complaining of nausea and vomiting and moderate R knee pain Objective : General: alert, oriented, very lethargic HEENT: NC/ AT. PERRL. EOM intact Neck: supple CVS: S1, S2, RRR. no murmurs. no pain on chest wall palpation Lungs: diminished ++, no wheezing Abd: soft, nontender, +BS Ext: moving all extremities, ZR knee not overtly swollen or even that tender skin: no rashes Assessment and plan: This is a 33-year-old male with known history of seizure disorder was brought to the emergency room via ambulance after being found on the floor was having continuous seizure activity in the emergency room prior to admission. He is currently managed as follows: #1 acute encephalopathy: resolved #2 seizure disorder with breakthrough seizures: -neurology managing, continues on daily depakote shots with surveillance daily -CT head was without acute pathology, -Brain MRI was also negative for acute pathology -EEG showed slowing of background suggestive of diffuse cortical dysfunction of nonspecific etiology -Appreciate neurology reviews recommendations -Patient recommended to continue on depakote for now 3. Sepsis (persistent ) with Strep pyogenes bacteremia and aspiration pneumonia -echo negative for vegetations, repeat blood cultures negative, ID recommending DC on PO zyvox 600mg BID for 2 weeks in view of substance use 4. Severe Rhabdomyolysis: -continue IV hydration, CK levels improved 5. NIKITA with Metabolic acidosis: Likely secondary #4, creatinine levels beginning to trend down -renal USS shows medicorenal disease but no obstruction 6. Hyperuricemia -allopurinol per renal 7. Transaminitis -stable indicies, but not normalized -hepatitis screen negative, -no cirrhosis on USS 8. Substance abuse -patient does endorse intermittent snorting , not IV, of cocaine but not for a while Dispo: will give some reglan and PPI for nausea and heartburn XR R knee gent insurance authorization for Zyvox plan to d/c tomorrow on oral zyvox Further treatment strategy will be implemented as per the clinical course. Result Diagram: 12/30/18 0433 12/30/18 0433 Results 24hrs Laboratory Tests Test 12/30/18 04:33 White Blood Count 5.3 Red Blood Count 3.64 L Hemoglobin 11.2 L Hematocrit 32.1 L Mean Corpuscular Volume 88.2 Mean Corpuscular Hemoglobin 30.8 Mean Corpuscular Hemoglobin Concent 34.9 Red Cell Distribution Width 12.6 Platelet Count 43 L Mean Platelet Volume 11.9 H Immature Granulocytes % 1.700 H Neutrophils % 46.3 Lymphocytes % 31.3 Monocytes % 18.2 H Eosinophils % 1.9 Basophils % 0.6 Nucleated Red Blood Cells % 0.0 Immature Granulocytes # 0.090 H Neutrophils # 2.5 Lymphocytes # 1.7 Monocytes # 1.0 H Eosinophils # 0.1 Basophils # 0.0 Nucleated Red Blood Cells # 0.0 Sodium Level 138 Potassium Level 3.8 Chloride Level 106 Carbon Dioxide Level 24 Anion Gap 8 Blood Urea Nitrogen 16 # Creatinine 1.82 H Est Glomerular Filtrat Rate mL/min 43 L Glucose Level 98 Calcium Level 7.9 L Creatine Kinase 1344 #H Valproic Acid (Depakene) Level 68 Exam/Review of Systems Exam Vitals Vital Signs Date Temp Pulse Resp B/P (MAP) Pulse Ox O2 O2 Flow FiO2 Time Delivery Rate 12/30/18 98.0 55 18 159/86 96 Room Air 09:31 (110) Intake and Output 12/29/18 12/29/18 12/30/18 1414:59 22:59 06:59 IntakeIntake Total 1615 ml 825 ml 925 ml BalanceBalance 1615 ml 825 ml 925 ml Results Results 24hrs Laboratory Tests Test 12/30/18 04:33 White Blood Count 5.3 Red Blood Count 3.64 L Hemoglobin 11.2 L Hematocrit 32.1 L Mean Corpuscular Volume 88.2 Mean Corpuscular Hemoglobin 30.8 Mean Corpuscular Hemoglobin Concent 34.9 Red Cell Distribution Width 12.6 Platelet Count 43 L Mean Platelet Volume 11.9 H Immature Granulocytes % 1.700 H Neutrophils % 46.3 Lymphocytes % 31.3 Monocytes % 18.2 H Eosinophils % 1.9 Basophils % 0.6 Nucleated Red Blood Cells % 0.0 Immature Granulocytes # 0.090 H Neutrophils # 2.5 Lymphocytes # 1.7 Monocytes # 1.0 H Eosinophils # 0.1 Basophils # 0.0 Nucleated Red Blood Cells # 0.0 Sodium Level 138 Potassium Level 3.8 Chloride Level 106 Carbon Dioxide Level 24 Anion Gap 8 Blood Urea Nitrogen 16 # Creatinine 1.82 H Est Glomerular Filtrat Rate mL/min 43 L Glucose Level 98 Calcium Level 7.9 L Creatine Kinase 1344 #H Valproic Acid (Depakene) Level 68 Medications Medication Current Medications Lorazepam (Ativan) 2 mg Q2H PRN IV SEIZURES; Start 12/23/18 at 22:00 IV Flush (NS 3 ml) 3 ml PER PROTOCOL IV ; Start 12/23/18 at 22:00 Bisacodyl (Dulcolax) 5 mg DAILY PRN PO .CONSTIPATION; Start 12/23/18 at 22:00 Docusate Sodium (Colace) 100 mg Q12H PO Last administered on 12/27/18 21:30; Admin Dose 100 MG; Start 12/24/18 at 22:00 Ondansetron HCl (Zofran Inj) 4 mg Q6H PRN IV NAUSEA AND/OR VOMITING Last administered on 12/29/18 21:07; Admin Dose 4 MG; Start 12/24/18 at 12:30 Acetaminophen (Tylenol Tab) 650 mg Q6H PRN PO MILD PAIN(1-3)OR ELEVATED TEMP Last administered on 12/29/18 08:41; Admin Dose 650 MG; Start 12/24/18 at 12:30 Valproate Sodium 1000 mg/Sodium Chloride 110 ml @ 110 mls/hr BID IVPB Last administered on 12/30/18 09:24; Admin Dose 110 MLS/HR; Start 12/24/18 at 21:00 Allopurinol (Zyloprim) 100 mg BID PO Last administered on 12/30/18 09:24; Admin Dose 100 MG; Start 12/25/18 at 21:00 Sodium Chloride 1,000 ml @ 125 mls/hr Q8H IV Last administered on 12/30/18 04:20; Admin Dose 125 MLS/HR; Start 12/27/18 at 15:00 Pantoprazole (Protonix Iv) 40 mg DAILY@0600 IV Last administered on 12/30/18 06:07; Admin Dose 40 MG; Start 12/28/18 at 06:00 Albuterol/ Ipratropium (Duoneb) 3 ml Q4H RESP THERAPY PRN HHN SHORTNESS OF BREATH; Start 12/28/18 at 02:30 Heparin Sodium (Porcine) (Heparin (5000 Units/1ml)) 5,000 unit BID SC ; Start 12/28/18 at 21:00; Status Hold Clindamycin HCl/ Dextrose 50 ml @ 50 mls/hr Q8 IVPB Last administered on 12/30/18at 06:08; Admin Dose 50 MLS/HR; Start 12/28/18 at 22:00 Ceftriaxone Sodium 50 ml @ 100 mls/hr Q24H IVPB Last administered on 12/29/18at 17:52; Admin Dose 100 MLS/HR; Start 12/28/18 at 18:30 Chlorhexidine Gluconate (Peridex) 15 ml BID MT Last administered on 12/30/18at 09:24; Admin Dose 15 ML; Start 12/29/18 at 12:30 Nystatin (Nystatin Susp) 5 ml QID PO Last administered on 12/30/18at 09:24; Admin Dose 5 ML; Start 12/29/18 at 13:00 Acetaminophen/ Hydrocodone Bitart ([place] (5/325)) 1 tab Q6H PRN PO MODERATE PAIN LEVEL 4-6 Last administered on 12/30/18at 02:50; Admin Dose 1 TAB; Start 12/29/18 at 17:30 Metoclopramide HCl (Reglan) 10 mg Q6 IV ; Start 12/30/18 at 12:00; Stop 12/31/18 at 00:01 LEOBARDO SEPULVEDA Dec 30, 2018 12:58
[2018-12-30] MEDS ORDERED: LINE600T PO (14:37)
--- NOTE | 2018-12-30 15:17 | CONS ---
Assessment/Plan Assessment/Plan Assessment/Plan (Daily) 1, acute kidney injury due to ATN from sepsis and acute rhabdomyolysis 2. acute rhabdomyolysis due to seizures 3. acute encephalopathy from breakthrough seizures 4. H/o seizure disorder 5. Sepsis due to Streptococcus pyogenes bacteremia Plan: BUN/Cr improved to 16/1.82, HCo3 24, CK total improving to 1344, other electrolyte sstable IVF NS 75 cchr- plan is to d/c IVF in AM Renal US showed No evidence of obstructive uropathy, calculus or mass. Echogenic kidneys consistent with renal medical disease. IV abx as per ID for sepsis, Renally dose all abx and monitor all electrolytes will follow up Consultation Date/Type/Reason Admit Date/Time Dec 23, 2018 at 21:54 Initial Consult Date 01/02/19 Type of Consult NEPHROLOGY Requesting Provider: LEOBARDO SEPULVEDA Date/Time of Note DATE: 12/30/18 TIME: 15:17 Exam/Review of Systems Exam Vitals Vital Signs Date Temp Pulse Resp B/P (MAP) Pulse Ox O2 O2 Flow FiO2 Time Delivery Rate 12/30/18 98.0 55 18 159/86 96 Room Air 09:31 (110) Intake and Output 12/29/18 12/29/18 12/30/18 1515:00 23:00 07:00 IntakeIntake Total 1790 ml 650 ml 975 ml BalanceBalance 1790 ml 650 ml 975 ml Exam Constitutional: No alert, No distress Psych: other (Unable to assess) Head: normocephalic Eyes: PERRL Respiratory: clear to auscultation Cardiovascular: regular rate and rhythm Gastrointestinal: soft, non-tender, bowel sounds Extremities: No edema Neurological: non focal Results Result Diagram: 12/30/18 0433 12/30/18 0433 Results 24hrs Laboratory Tests Test 12/30/18 04:33 White Blood Count 5.3 Red Blood Count 3.64 L Hemoglobin 11.2 L Hematocrit 32.1 L Mean Corpuscular Volume 88.2 Mean Corpuscular Hemoglobin 30.8 Mean Corpuscular Hemoglobin Concent 34.9 Red Cell Distribution Width 12.6 Platelet Count 43 L Mean Platelet Volume 11.9 H Immature Granulocytes % 1.700 H Neutrophils % 46.3 Lymphocytes % 31.3 Monocytes % 18.2 H Eosinophils % 1.9 Basophils % 0.6 Nucleated Red Blood Cells % 0.0 Immature Granulocytes # 0.090 H Neutrophils # 2.5 Lymphocytes # 1.7 Monocytes # 1.0 H Eosinophils # 0.1 Basophils # 0.0 Nucleated Red Blood Cells # 0.0 Sodium Level 138 Potassium Level 3.8 Chloride Level 106 Carbon Dioxide Level 24 Anion Gap 8 Blood Urea Nitrogen 16 # Creatinine 1.82 H Est Glomerular Filtrat Rate mL/min 43 L Glucose Level 98 Calcium Level 7.9 L Creatine Kinase 1344 #H Valproic Acid (Depakene) Level 68 Medications Medication Current Medications Lorazepam (Ativan) 2 mg Q2H PRN IV SEIZURES; Start 12/23/18 at 22:00 IV Flush (NS 3 ml) 3 ml PER PROTOCOL IV ; Start 12/23/18 at 22:00 Bisacodyl (Dulcolax) 5 mg DAILY PRN PO .CONSTIPATION; Start 12/23/18 at 22:00 Docusate Sodium (Colace) 100 mg Q12H PO Last administered on 12/27/18 21:30; Admin Dose 100 MG; Start 12/24/18 at 22:00 Ondansetron HCl (Zofran Inj) 4 mg Q6H PRN IV NAUSEA AND/OR VOMITING Last administered on 12/29/18 21:07; Admin Dose 4 MG; Start 12/24/18 at 12:30 Acetaminophen (Tylenol Tab) 650 mg Q6H PRN PO MILD PAIN(1-3)OR ELEVATED TEMP Last administered on 12/29/18 08:41; Admin Dose 650 MG; Start 12/24/18 at 12:30 Allopurinol (Zyloprim) 100 mg BID PO Last administered on 12/30/18 09:24; Ad min Dose 100 MG; Start 12/25/18 at 21:00 Sodium Chloride 1,000 ml @ 125 mls/hr Q8H IV Last administered on 12/30/18 14:41; Admin Dose 125 MLS/HR; Start 12/27/18 at 15:00 Pantoprazole (Protonix Iv) 40 mg DAILY@0600 IV Last administered on 12/30/18 06:07; Admin Dose 40 MG; Start 12/28/18 at 06:00 Albuterol/ Ipratropium (Duoneb) 3 ml Q4H RESP THERAPY PRN HHN SHORTNESS OF BREATH; Start 12/28/18 at 02:30 Heparin Sodium (Porcine) (Heparin (5000 Units/1ml)) 5,000 unit BID SC ; Start 12/28/18 at 21:00; Status Hold Clindamycin HCl/ Dextrose 50 ml @ 50 mls/hr Q8 IVPB Last administered on 12/30/18at 15:06; Admin Dose 50 MLS/HR; Start 12/28/18 at 22:00 Ceftriaxone Sodium 50 ml @ 100 mls/hr Q24H IVPB Last administered on 12/29/18at 17:52; Admin Dose 100 MLS/HR; Start 12/28/18 at 18:30 Chlorhexidine Gluconate (Peridex) 15 ml BID MT Last administered on 12/30/18 09:24; Admin Dose 15 ML; Start 12/29/18 at 12:30 Nystatin (Nystatin Susp) 5 ml QID PO Last administered on 12/30/18at 09:24; Admin Dose 5 ML; Start 12/29/18 at 13:00 Acetaminophen/ Hydrocodone Bitart ([place] (5/325)) 1 tab Q6H PRN PO MODERATE PAIN LEVEL 4-6 Last administered on 12/30/18at 02:50; Admin Dose 1 TAB; Start 12/29/18 at 17:30 Metoclopramide HCl (Reglan) 10 mg Q6 IV Last administered on 12/30/18at 12:00; Admin Dose 10 MG; Start 12/30/18 at 12:00; Stop 12/31/18 at 00:01 Divalproex Sodium (Depakote) 1,000 mg BID PO ; Start 12/30/18 at 21:00 EVIE PALMER MD Dec 30, 2018 15:17
[2018-12-30] MEDS: CEFTRIAXONE 2 GM/50 ML (PMX) 50 ML IVPB SCH (18:54)
[2018-12-30 19:53] VITALS: BP 164/94; PULSE 92; RESP 16
[2018-12-30] MEDS: DIVALPROEX (EC) 500 MG TAB PO SCH (20:34)
[2018-12-30 21:00] VITALS: BP 141/84
[2018-12-31] MEDS: METOCLOPRAMIDE 10 MG INJ IV SCH
[2018-12-31] MEDS: SOD CHLORIDE 0.9% 1,000 ML IV SCH ×2 (00:13→06:45)
[2018-12-31 02:00] VITALS: BP 130/81; PULSE 72; RESP 16
[2018-12-31] MEDS: ACETAMINOPHEN 325 MG TAB PO PRN ×2 (02:12→09:06)
[2018-12-31] MEDS: CLINDAMYCIN 600 MG/D5W (PMX) 50 ML IVPB SCH (06:00)
[2018-12-31] MEDS: PANTOPRAZOLE 40 MG INJ IV SCH (06:00)
[2018-12-31 08:18] VITALS: BP 154/90; PULSE 85; RESP 18
[2018-12-31] MEDS: ALLOPURINOL 100 MG TAB PO SCH (09:00)
[2018-12-31] MEDS: NYSTATIN SUSP 5 ML CUP PO SCH (09:00)
[2018-12-31] MEDS: CHLORHEXIDINE GLUCONATE 15 ML UD CUP MT SCH (09:00)
[2018-12-31] MEDS: DIVALPROEX (EC) 500 MG TAB PO SCH (09:00)
[2018-12-31] MEDS: DOCUSATE SODIUM 100 MG CAP PO SCH (10:00)
--- NOTE | 2018-12-31 10:25 | CONS ---
Assessment/Plan Assessment/Plan Assessment/Plan (Daily) 1, acute kidney injury due to ATN from sepsis and acute rhabdomyolysis 2. acute rhabdomyolysis due to seizures 3. acute encephalopathy from breakthrough seizures 4. H/o seizure disorder 5. Sepsis due to Streptococcus pyogenes bacteremia Plan: BUN/Cr improved to 16/1.82, HCo3 24, CK total improving to 1344, other electrolyte sstable IVF NS 75 cchr- plan is to d/c IVF in AM Renal US showed No evidence of obstructive uropathy, calculus or mass. Echogenic kidneys consistent with renal medical disease. IV abx as per ID for sepsis, Renally dose all abx and monitor all electrolytes will follow up Consultation Date/Type/Reason Admit Date/Time Dec 23, 2018 at 21:54 Initial Consult Date 01/02/19 Type of Consult NEPHROLOGY Requesting Provider: LEOBARDO SEPULVEDA Date/Time of Note DATE: 12/31/18 TIME: 10:25 Exam/Review of Systems Exam Vitals Vital Signs Date Temp Pulse Resp B/P (MAP) Pulse Ox O2 O2 Flow FiO2 Time Delivery Rate 12/31/18 98.4 85 18 154/90 98 Room Air 08:18 (111) Intake and Output 12/30/18 12/30/18 12/31/18 1515:00 23:00 07:00 IntakeIntake Total 1475 ml 717 ml 1595 ml BalanceBalance 1475 ml 717 ml 1595 ml Results Result Diagram: 12/30/18 0433 12/30/18 0433 Medications Medication Current Medications Lorazepam (Ativan) 2 mg Q2H PRN IV SEIZURES; Start 12/23/18 at 22:00 IV Flush (NS 3 ml) 3 ml PER PROTOCOL IV ; Start 12/23/18 at 22:00 Bisacodyl (Dulcolax) 5 mg DAILY PRN PO .CONSTIPATION; Start 12/23/18 at 22:00 Docusate Sodium (Colace) 100 mg Q12H PO Last administered on 12/27/18at 21:30; Admin Dose 100 MG; Start 12/24/18 at 22:00 Ondansetron HCl (Zofran Inj) 4 mg Q6H PRN IV NAUSEA AND/OR VOMITING Last administered on 12/29/18at 21:07; Admin Dose 4 MG; Start 12/24/18 at 12:30 Acetaminophen (Tylenol Tab) 650 mg Q6H PRN PO MILD PAIN(1-3)OR ELEVATED TEMP Last administered on 12/31/18 09:06; Admin Dose 650 MG; Start 12/24/18 at 12:30 Allopurinol (Zyloprim) 100 mg BID PO Last administered on 12/30/18 20:34; Admin Dose 100 MG; Start 12/25/18 at 21:00 Sodium Chloride 1,000 ml @ 125 mls/hr Q8H IV Last administered on 12/31/18 00:13; Admin Dose 125 MLS/HR; Start 12/27/18 at 15:00 Pantoprazole (Protonix Iv) 40 mg DAILY@0600 IV Last administered on 12/30/18 06:07; Admin Dose 40 MG; Start 12/28/18 at 06:00 Albuterol/ Ipratropium (Duoneb) 3 ml Q4H RESP THERAPY PRN HHN SHORTNESS OF BREATH; Start 12/28/18 at 02:30 Heparin Sodium (Porcine) (Heparin (5000 Units/1ml)) 5,000 unit BID SC ; Start 12/28/18 at 21:00; Status Hold Clindamycin HCl/ Dextrose 50 ml @ 50 mls/hr Q8 IVPB Last administered on 12/30/18 22:10; Admin Dose 50 MLS/HR; Start 12/28/18 at 22:00 Ceftriaxone Sodium 50 ml @ 100 mls/hr Q24H IVPB Last administered on 12/30/18 18:54; Admin Dose 100 MLS/HR; Start 12/28/18 at 18:30 Chlorhexidine Gluconate (Peridex) 15 ml BID MT Last administered on 12/30/18 20:36; Admin Dose 15 ML; Start 12/29/18 at 12:30 Nystatin (Nystatin Susp) 5 ml QID PO Last administered on 12/30/18 20:36; Admin Dose 5 ML; Start 12/29/18 at 13:00 Acetaminophen/ Hydrocodone Bitart ([place] (5/325)) 1 tab Q6H PRN PO MODERATE PAIN LEVEL 4-6 Last administered on 12/30/18 02:50; Admin Dose 1 TAB; Start 12/29/18 at 17:30 Divalproex Sodium (Depakote) 1,000 mg BID PO Last administered on 12/30/18at 20:34; Admin Dose 1,000 MG; Start 12/30/18 at 21:00 EVIE PALMER MD Dec 31, 2018 10:25
[2018-12-31] MEDS ORDERED: LINE600T PO (10:33)
--- NOTE | 2018-12-31 10:46 | DS ---
Date/Time of Note Date/Time of Note DATE: 12/31/18 TIME: 10:43 Discharge Summary Admission/Discharge Info Admit Date/Time Dec 23, 2018 at 21:54 Discharge Date/Time Discharge Diagnosis This is a 33-year-old male with known history of seizure disorder was brought to the emergency room via ambulance after being found on the floor was having continuous seizure activity in the emergency room prior to admission. He is currently managed as follows: 1. acute encephalopathy: resolved 2. seizure disorder with breakthrough seizures / status epilepticus 3. Sepsis (persistent ) with Strep pyogenes bacteremia and aspiration pneumonia -echo negative for vegetations, repeat blood cultures negative, ID recommending DC on PO zyvox 600mg BID for 2 weeks in view of substance use 4. Severe Rhabdomyolysis: improved ++ 5. NIKITA with Metabolic acidosis: Likely secondary #4, creatinine levels beginning to trend down -renal USS shows medicorenal disease but no obstruction 6. Hyperuricemia -allopurinol per renal 7. Transaminitis -stable indicies, but not normalized -hepatitis screen negative, -no cirrhosis on USS 8. Substance abuse -patient does endorse intermittent snorting , not IV, of cocaine but not for a while 9. Mild Pulm HTN 10. UTI Patient Condition: Stable Consults Neurology : Rivka Garcia MD, Jeremiah NIEVES ID: [email or web address] aguero MD, Dov NIEVES Nephro: Drake Albarran MD, Prabhakar NIEVES . Hospital Course Very interesting 33-year-old male with a past medical history of seizure disorder who had had a seizure aura and called family and friends. When his friend arrived patient was found altered. In the emergency room he was found to be having ongoing seizures with acute encephalopathy. He was admitted for breakthrough seizures/status epilepticus with acute renal insufficiency and acute encephalopathy. He was seen by neurology who followed him throughout his hospitalization and was managing his antiseizure regimen. He was also followed by nephrology throughout. Subsequent labs confirmed the presence of severe rhabdomyolysis which was likely contributing to his renal failure. His creatinine level peaked at 5.08 and started trending down. Blood cultures were also positive for strep pyogenes and patient was also found to have aspiration pneumonia which was likely the cause of his bacteremia. Although the urinalysis was somewhat suggestive of a urinary tract infection, cultures did not grow any significant organisms. The patient was also noted to have a transaminitis that was also likely related to his seizures. Slowly, his encephalopathy got better. At one point he did become septic with fever and that time blood cultures were done. At this time he is doing so much better. The patient did admit to snorting cocaine intermittently reports for him medically denied intravenous drug use. However a 2D echo was done, transthoracic echo there was no concern for vegetations on the, no evidence of endocarditis. Patient did have a mildly elevated peak PA systolic pressure of 51. As of today his rhabdo is much better his renal function is also significantly improved his mentation is back to normal he does still feel lethargic, but he is stable for discharge for continued follow-up as outpatient. We have spoken with his primary care doctor and notified him of the events of his hospitalization and the neurologist on the case has also communicated with his outpatient neurologist. At this time ID has recommended 2 weeks of antibiotic therapy with Zyvox, if we are awaiting insurance authorization for that. Once that is approved the patient to be discharged in stable condition. . Home Meds Active Scripts Albuterol Sulfate (Proair Respiclick) 90 Mcg Aer.pow.ba, 2 PUFFS INHALATION Q4H PRN for SHORTNESS OF BREATH, #1 BOTTLE Prov:LEOBARDO SEPULVEDA 12/31/18 Chlorhexidine Gluconate (Peridex) 473 Ml Mouthwash, 15 ML MT BID, #1 BOTTLE Prov:LEOBARDO SEPULVEDA 12/31/18 Divalproex Sodium* (Divalproex Sodium*) 500 Mg Tablet.dr, 1000 MG PO BID, #120 TAB Prov:LEOBARDO SEPULVEDA 12/31/18 Allopurinol* (Allopurinol*) 100 Mg Tablet, 100 MG PO BID, #60 TAB Prov:LEOBARDO SEPULVEDA 12/31/18 Linezolid* (Zyvox*) 600 Mg Tablet, 600 MG PO BID for 14 Days, #28 TAB Prov:LEOBARDO SEPULVEDA 12/31/18 Follow-up Plan Patient has scheduled appointment with his PCP in followup today . Primary Care Provider Care Physician No Primary Time spent on discharge: > 30 minutes LEOBARDO SEPULVEDA Dec 31, 2018 10:46
[2018-12-31] MEDS ORDERED: ALLO100T PO (10:48)
[2018-12-31] MEDS ORDERED: DIVA-16 PO (10:48)
--- NOTE | 2018-12-31 10:50 | PDOCDIS ---
Discharge Instructions DIAGNOSIS Discharge Diagnosis This is a 33-year-old male with known history of seizure disorder was brought to the emergency room via ambulance after being found on the floor was having con tinuous seizure activity in the emergency room prior to admission. He is currently managed as follows: 1. acute encephalopathy: resolved 2. seizure disorder with breakthrough seizures / status epilepticus 3. Sepsis (persistent ) with Strep pyogenes bacteremia and aspiration pneumonia -echo negative for vegetations, repeat blood cultures negative, ID recommending DC on PO zyvox 600mg BID for 2 weeks in view of substance use 4. Severe Rhabdomyolysis: improved ++ 5. NIKITA with Metabolic acidosis: Likely secondary #4, creatinine levels beginning to trend down -renal USS shows medicorenal disease but no obstruction 6. Hyperuricemia -allopurinol per renal 7. Transaminitis -stable indicies, but not normalized -hepatitis screen negative, -no cirrhosis on USS 8. Intermittent Substance use 9. Mild Pulm HTN 10. UTI . CONDITION [id number] Patient Condition: [id number] Stable FOLLOW UP/APPOINTMENTS Follow-up Plan Followup with your primary doctor within the next 1-2 weeks. Review your medication list with your nurse before leaving and if you need new prescriptions please let your nurse know. I have made changes to your home medications or given you new prescriptions, please let your primary doctor know as well. Stay compliant with your medications and report any side effects to your PCP or pharmacist. Return to the ER if you have any concerns and cannot reach your doctors or call your insurance company, they usually have a nurse that can help you. LEOBARDO SEPULVEDA Dec 31, 2018 10:50
--- NOTE | 2018-12-31 11:22 | CONS ---
Assessment/Plan Assessment/Plan Hospital Course (Demo Recall) No acute changes per report Antimicrobials: Clindamycin, Rocephin Microbiology: Blood culture on admission grew strep pyogenes, repeat blood culture negative Left upper extremity ultrasound revealed thrombosis of the left basilic vein Chest x-ray revealed bibasilar pneumonia. Brain MRI revealed no acute intracranial pathology. Renal ultrasound revealed no evidence of obstructive uropathy calculus or mass. Liver ultrasound revealed no gallstones or sludge no dilatation of biliary duct focal area of gallbladder wall thickening with pericholecystic fluid in the mid body of the gallbladder which is nonspecific. Please see full report Physical examination: Well-nourished well-developed middle-aged man who is awake in no distress. Head atraumatic normocephalic neck is supple chest rise symmetrical breath sounds diminished at bases. Heart: S1-S2. Abdomen soft bowel sounds present. Extremities with left upper extremity edema Assessment: 1. Severe sepsis on admission 2. Bilateral pneumonia possibly aspiration 3. Strep bacteremia, rule out endocarditis 4. Acute renal failure 5. Left upper extremity edema/basilic vein thrombosis 6. Progressive thrombocytopenia 7. Epilepsy status post seizure 8. History of IV drug use Plan: Dc Clindamycin, continue Rocephin, pending dc on oral Zyvox, last dose on 01/10/19 Consultation Date/Type/Reason Admit Date/Time Dec 23, 2018 at 21:54 Initial Consult Date 01/02/19 Type of Consult id Requesting Provider: LEOBARDO SEPULVEDA Date/Time of Note DATE: 12/31/18 TIME: 11:17 Exam/Review of Systems Exam Vitals Vital Signs Date Temp Pulse Resp B/P (MAP) Pulse Ox O2 O2 Flow FiO2 Time Delivery Rate 12/31/18 98.4 85 18 154/90 98 Room Air 08:18 (111) Intake and Output 12/30/18 12/30/18 12/31/18 1515:00 23:00 07:00 IntakeIntake Total 1475 ml 717 ml 1595 ml BalanceBalance 1475 ml 717 ml 1595 ml Results Result Diagram: 12/30/18 0433 12/30/18 0433 Medications Medication Current Medications Lorazepam (Ativan) 2 mg Q2H PRN IV SEIZURES; Start 12/23/18 at 22:00 IV Flush (NS 3 ml) 3 ml PER PROTOCOL IV ; Start 12/23/18 at 22:00 Bisacodyl (Dulcolax) 5 mg DAILY PRN PO .CONSTIPATION; Start 12/23/18 at 22:00 Docusate Sodium (Colace) 100 mg Q12H PO Last administered on 12/27/18 21:30; Admin Dose 100 MG; Start 12/24/18 at 22:00 Ondansetron HCl (Zofran Inj) 4 mg Q6H PRN IV NAUSEA AND/OR VOMITING Last administered on 12/29/18 21:07; Admin Dose 4 MG; Start 12/24/18 at 12:30 Acetaminophen (Tylenol Tab) 650 mg Q6H PRN PO MILD PAIN(1-3)OR ELEVATED TEMP Last administered on 12/31/18 09:06; Admin Dose 650 MG; Start 12/24/18 at 12:30 Allopurinol (Zyloprim) 100 mg BID PO Last administered on 12/30/18 20:34; Admin Dose 100 MG; Start 12/25/18 at 21:00 Sodium Chloride 1,000 ml @ 125 mls/hr Q8H IV Last administered on 12/31/18 00:13; Admin Dose 125 MLS/HR; Start 12/27/18 at 15:00 Pantoprazole (Protonix Iv) 40 mg DAILY@0600 IV Last administered on 12/30/18 06:07; Admin Dose 40 MG; Start 12/28/18 at 06:00 Albuterol/ Ipratropium (Duoneb) 3 ml Q4H RESP THERAPY PRN HHN SHORTNESS OF BREATH; Start 12/28/18 at 02:30 Heparin Sodium (Porcine) (Heparin (5000 Units/1ml)) 5,000 unit BID SC ; Start 12/28/18 at 21:00; Status Hold Clindamycin HCl/ Dextrose 50 ml @ 50 mls/hr Q8 IVPB Last administered on 12/30/18 22:10; Admin Dose 50 MLS/HR; Start 12/28/18 at 22:00 Ceftriaxone Sodium 50 ml @ 100 mls/hr Q24H IVPB Last administered on 12/30/18 18:54; Admin Dose 100 MLS/HR; Start 12/28/18 at 18:30 Chlorhexidine Gluconate (Peridex) 15 ml BID MT Last administered on 12/30/18 20:36; Admin Dose 15 ML; Start 12/29/18 at 12:30 Nystatin (Nystatin Susp) 5 ml QID PO Last administered on 12/30/18 20:36; Admin Dose 5 ML; Start 12/29/18 at 13:00 Acetaminophen/ Hydrocodone Bitart ([place] (5/325)) 1 tab Q6H PRN PO MODERATE PAIN LEVEL 4-6 Last administered on 12/30/18 02:50; Admin Dose 1 TAB; Start 12/29/18 at 17:30 Divalproex Sodium (Depakote) 1,000 mg BID PO Last administered on 12/30/18 20:34; Admin Dose 1,000 MG; Start 12/30/18 at 21:00 XIOMARA MURRAY NP Dec 31, 2018 11:22
[2018-12-31] MEDS ORDERED: CHLO473M4 MT (11:23)
[2018-12-31] MEDS ORDERED: ALBU90AE INHALATION (11:24)
--- NOTE | 2018-12-31 13:10 | CONS ---
Assessment/Plan Assessment/Plan Hospital Course 33 yo M with Hx of epilepsy who presents for evaluation of breakthrough seizures... for which neurology is consulted. ? precipitated by medication noncompliance..? CTH is without acute intracranial pathology. Initial CXR was unremarkable; followup imaging in the context of fevers suggest stefano of pneumonia BCx + Depakote level was subtherapeutic on presentation... P: Continue Depakote as ordered for now; can consider transitioning back to [facility] IV PRN seizure > 5 min or for cluster PT/OT as necessary Continued medical management and supportive care per primary Neurologically cleared for d/c Consultation Date/Type/Reason Admit Date/Time Dec 23, 2018 at 21:54 Type of Consult Neurology Reason for Consultation seizure Requesting Provider: LEOBARDO SEPULVEDA Date/Time of Note DATE: 12/31/18 TIME: 13:08 24 HR Interval Summary Free Text/Dictation Continues acute care. No further seizures reported. Awaiting discharge today. Exam Vital Signs Vitals Vital Signs Date Temp Pulse Resp B/P (MAP) Pulse Ox O2 O2 Flow FiO2 Time Delivery Rate 12/31/18 98.4 85 18 154/90 98 Room Air 08:18 (111) Intake and Output 12/30/18 12/30/18 12/31/18 1515:00 23:00 07:00 IntakeIntake Total 1475 ml 717 ml 1595 ml BalanceBalance 1475 ml 717 ml 1595 ml Exam PE: Gen Appearance: No Apparent Distress HEENT: Normocephalic Cardiovascular: Regular rate Lungs: Clear bilaterally Abdomen: Soft Extremities: Dry NE: The patient was alert and oriented.. Language was normal. Fund of knowledge was normal. Pupils were equal and reactive to light. There was no afferent pupillary defect. Visual ware were normal. Funduscopic examination was limited. Extra-ocular movements were full. Ptosis was absent. There was no nystagmus. Facial sensation was normal. Face was symmetric with normal strength. Hearing was intact. Palate movements were normal. Neck strength was normal. There was normal tongue bulk and speed of movement. Tone was normal. Muscle bulk was normal. I did not see fasciculations. Arms and legs were strong. Vibration sensation was normal. Temperature and pinprick sensation was normal. Rapid alternating movements were normal. There was no dysmetria. There was no intention tremor. Gait was deferred due to bedrest. Arm and leg reflexes were 2+ and symmetric. James's sign was absent. Plantar responses were flexor. PADMINI STODDARD NP Dec 31, 2018 13:10 ASUNCION KINGSLEY Dec 31, 2018 15:30
== END 2018-12-31 11:35 | disposition home or self-care (01) | DRG 871 ==
LOC: E/R 19:08 → 6WM 21:54 → 2NE 12-27 12:10
PROVIDERS: ADMIT Family Medicine; ATTEND Family Medicine
DX: A40.0 Sepsis due to streptococcus, group A (principal); N17.0 Acute kidney failure with tubular necrosis; J69.0 Pneumonitis due to inhalation of food and vomit; G93.49 Other encephalopathy; E87.2 Acidosis; I82.612 Acute embolism and thrombosis of superficial veins of left upper extremity; N39.0 Urinary tract infection, site not specified; I27.20 Pulmonary hypertension, unspecified; R65.20 Severe sepsis without septic shock; G40.901 Epilepsy, unspecified, not intractable, with status epilepticus; E86.0 Dehydration; T79.6XXA Traumatic ischemia of muscle, initial encounter; X58.XXXA Exposure to other specified factors, initial encounter; E79.0 Hyperuricemia without signs of inflammatory arthritis and tophaceous disease; R74.0 Nonspecific elevation of levels of transaminase and lactic acid dehydrogenase [LDH]; F19.10 Other psychoactive substance abuse, uncomplicated; D69.6 Thrombocytopenia, unspecified
CPT/HCPCS: 36600; 70450; 70553; 71045; 73562; 76705; 76775; 80048; 80053; 80061; 80156; 80164; 80185; 80202; 80307; 81001; 82306; 82550; 82607; 82803; 83540; 83605; 83735; 84443; 84484; 84560; 85025; 85610; 85730; 86592; 86803; 87086; 87340; 92610; 93005; 93306; 93971; 95819; 96374; 96375; 96376; 97161; C9113; J0696; J0780; J1630; J1953; J1956; J2060; J2405; J2543; J2765; J3370; J7030; J7050; J7120